=== PATIENT | female | born 1930 | race Caucasian/White ===

== ENCOUNTER → 2016-07-30 | Outpatient (CLI) | payer OTHER ==
[2016-07-30 13:10] LABS: BASO % 0.5 %; BASO ABS # 0.04 K/uL (0-0.2); COMPLETE YES; HEMATOCRIT 36.3 % (37-47); IG% 0.3 %; LYMPH % 19.6 %; LYMPH ABS # 1.56 K/uL (1.2-3.4); MEAN CELL VOLUME 87.1 fL (80-100); MEAN CORPUSCULAR HEMOGLOBIN 28.3 pg (25-34); MEAN CORPUSCULAR HGB CONC 32.5 g/dl (32-36); MEAN PLATELET VOLUME 9.2 fL (7.4-10.4); MONO % 10.3 %; NEUT % 67.3 %; PLATELET COUNT 315 K/uL (130-400); RED BLOOD COUNT 4.17 M/uL (4.2-5.4); WHITE BLOOD COUNT 7.95 K/uL (4.8-10.8)
[2016-07-30 13:27] LABS: ALKALINE PHOSPHATASE 94 U/L (45-117); ALT/SGPT 18 U/L (12-78); AST/SGOT 15 U/L (15-37); BLOOD UREA NITROGEN 18 mg/dl (7-18); BUN/CREATININE RATIO 26.3 (10-20); CALCIUM 9.2 mg/dl (8.5-10.1); CARBON DIOXIDE 31 mmol/L (21-32); CHLORIDE 104 mmol/L (98-107); CHOLESTEROL 190 mg/dl (0-200); CHOLESTEROL/HDL RATIO 2.2; CREATININE 0.68 mg/dl (0.60-1.20); GLUCOSE 83 mg/dl (70-99); HDL CHOLESTEROL 85 mg/dl; LDL CHOLESTEROL CALCULATED 95 mg/dl; POTASSIUM 4.3 mmol/L (3.5-5.1); SODIUM 139 mmol/L (136-145); TOTAL IRON BINDING CAPACITY 386 mcg/dl (250-450); TRIGLYCERIDES 49 mg/dl (0-150); VERY LOW DENSITY LIPOPROT CALC 10 mg/dl
[2016-07-30 13:36] LABS: ALB/GLOB RATIO 0.8 (0.9-2)
== END | disposition home or self-care (01) ==
LOC: C.LABMFLN 07:52
PROVIDERS: ATTEND Family Medicine
DX: M06.9 Rheumatoid arthritis, unspecified (principal); I10 Essential (primary) hypertension; R63.4 Abnormal weight loss; D64.9 Anemia, unspecified; E78.00 Pure hypercholesterolemia, unspecified; E03.9 Hypothyroidism, unspecified

== ENCOUNTER → 2017-09-04 | Outpatient (CLI) | payer OTHER ==
[2017-09-04 17:51] LABS: BASO % 0.4 %; BASO ABS # 0.03 K/uL (0-0.2); EOS % 1.7 %; EOS ABS # 0.12 K/uL (0-0.5); HEMATOCRIT 39.6 % (37-47); HEMOGLOBIN 12.4 g/dL (12.0-16.0); IG# 0.01 K/uL (0.00-0.02); LYMPH % 19.7 %; LYMPH ABS # 1.41 K/uL (1.2-3.4); MEAN CELL VOLUME 95.2 fL (80-100); MEAN CORPUSCULAR HEMOGLOBIN 29.8 pg (25-34); MEAN CORPUSCULAR HGB CONC 31.3 g/dl (32-36); MEAN PLATELET VOLUME 9.7 fL (7.4-10.4); MONO ABS # 0.64 K/uL (0.11-0.59); NEUT % 69.1 %; NEUT ABS # 4.94 K/uL (1.4-6.5); PLATELET COUNT 325 K/uL (130-400); RED CELL DISTRIBUTION WIDTH CV 14.5 % (11.5-14.5); RED CELL DISTRIBUTION WIDTH SD 49.8 fL (36.4-46.3); WHITE BLOOD COUNT 7.15 K/uL (4.8-10.8)
[2017-09-04 20:16] LABS: ALBUMIN 3.6 gm/dl (3.4-5.0); ALKALINE PHOSPHATASE 91 U/L (45-117); ALT/SGPT 29 U/L (12-78); AST/SGOT 29 U/L (15-37); BLOOD UREA NITROGEN 17 mg/dl (7-18); CALCIUM 8.7 mg/dl (8.5-10.1); CARBON DIOXIDE 28 mmol/L (21-32); CHOLESTEROL 161 mg/dl (0-200); CREATININE 0.71 mg/dl (0.60-1.20); GLUCOSE 85 mg/dl (70-99); LDL CHOLESTEROL CALCULATED 76 mg/dl; POTASSIUM 4.5 mmol/L (3.5-5.1); SODIUM 139 mmol/L (136-145); TOTAL PROTEIN 7.7 gm/dl (6.4-8.2)
== END | disposition home or self-care (01) ==
LOC: C.LABMFLN 10:59
PROVIDERS: ATTEND Family Medicine
DX: M06.9 Rheumatoid arthritis, unspecified (principal); I10 Essential (primary) hypertension; I48.91 Unspecified atrial fibrillation; E78.00 Pure hypercholesterolemia, unspecified; E03.9 Hypothyroidism, unspecified; M81.0 Age-related osteoporosis without current pathological fracture

== ENCOUNTER 2020-04-18 13:25 | Observation (INO) ==
[2020-04-18 15:10] LABS: Basophils # (auto) 0.01 K/uL (0-0.2); Basophils % (auto) 0.2 %; Eosinophils # (auto) 0.14 K/uL (0-0.5); Eosinophils % (auto) 2.3 %; Hematocrit (blood only) 40.3 % (37-47); Hemoglobin 13.2 g/dL (12.0-16.0); Immature Granulocytes # (auto) 0.02 K/uL (0.00-0.02); Immature Granulocytes % (auto) 0.3 %; Lymphocytes # (auto) 1.21 K/uL (1.2-3.4); Lymphocytes % (auto) 19.5 %; Mean Corpuscular Hgb Conc 32.8 g/dL (32-36); Mean Corpuscular Volume 94.6 fL (80-100); Mean Platelet Volume 9.7 fL (7.4-10.4); Monocytes # (auto) 0.72 K/uL (0.11-0.59); Monocytes % (auto) 11.6 %; Neutrophils # (auto) 4.09 K/uL (1.4-6.5); Neutrophils % (auto) 66.1 %; Platelet Count 235 K/uL (130-400); RDW Coefficient of Variation 14.1 % (11.5-14.5); RDW Standard Deviation 47.8 fL (36.4-46.3); Red Blood Count 4.26 M/uL (4.2-5.4); White Blood Count 6.19 K/uL (4.8-10.8)
--- NOTE | 2020-04-18 15:15 | XRay Report ---
XR chest 1V portable CLINICAL HISTORY: Atypical chest pain COMPARISON STUDY: No previous studies for comparison. FINDINGS: The heart is enlarged. There is no failure. There is no focal pulmonary consolidation. Ther e are no pleural effusions. A subcentimeter density at the right midlung zone laterally likely repres enting a vascular summation[ IMPRESSION: Cardiomegaly. No acute findings. ACT 112: Negative or not required by law. Electronically signed by: Saleem Liz M.D. 04/18/2020 3:14 PM
[2020-04-18 15:30] LABS: Alanine Aminotransferase 22 U/L (12-78); Albumin Level 3.7 gm/dl (3.4-5.0); Aspartate Aminotransferase 25 U/L (15-37); BUN Creatinine Ratio 23.9 (10-20); Blood Urea Nitrogen 38 mg/dl (7-18); Calcium 9.7 mg/dl (8.5-10.1); Carbon Dioxide 35 mmol/L (21-32); Chloride 100 mmol/L (98-107); Est GFR (African American) 33.5; Est GFR (Non-African American) 28.9; Glucose 94 mg/dl (70-99); Lipase 136 U/L (73-393); Potassium 3.9 mmol/L (3.5-5.1); Sodium 138 mmol/L (136-145)
[2020-04-18 15:31] LABS: Partial Thromboplastin Ratio 0.8; Partial Thromboplastin Time 21.1 Seconds (21.0-31.0); Prothrombin Time 10.9 Seconds (9.0-12.0)
[2020-04-18 15:34] LABS: Alkaline Phosphatase 72 U/L (45-117); Bilirubin,Total 0.3 mg/dl (0.2-1); Creatine Kinase 57 U/L (26-192); Creatine Kinase MB < 1.0 ng/ml (0.5-3.6); Globulin 3.6 gm/dl (2.5-4.0); Total Protein 7.3 gm/dl (6.4-8.2); Troponin I < 0.015 ng/ml (0-0.045)
[2020-04-18] MEDS ORDERED: SODIUM CHLORIDE 0.9% 1000ML 500 ML IV ONE (15:38)
--- NOTE | 2020-04-18 15:42 | Emergency Department Note ---
History of Present Illness General Chief complaint: Shortness of Breath/Dyspnea Stated complaint: REF BY DR POSSIBLE STROKE Time Seen by Provider: 04/18/20 14:04 Source: patient, family (daughter ), RN notes reviewed and old records reviewed Mode of arrival: ambulatory Limitations: altered mental status History of Present Illness Provider complaint: Dizziness, chest pain Onset (ago): week(s) 2 Location: chest Radiation: back Severity: mild Pain Consistency: + intermittent and + now resolved Maximum Pain Intensity: 0 Current Pain Intensity: 0 Quality: + aching Relieved By: + immobilization Exacerbated By: + movement Associated symptoms: + malaise, + weakness and + other (dizziness); no cough, no fever/chills, no headaches, no nausea/vomiting and no shortness of breath Treatments prior to arrival: none This is an 89-year-old female sent in by her primary care physician over concerns of the patient has been having chest pain for the last 2 weeks with exertion. The patient reports the pain as an ache made better with rest however exertion makes it worse. Patient's daughter is concerned that the patient seems more confused confused than normal. Patient does have a history of atrial fibrillation however is not anticoagulated for this. The patient's primary care physician sent her in over concerns of the patient may have had a CVA due to the dizziness and ataxia she has had over the past 2 weeks. In addition the patient's renal function has also worsened. Home Medications Medication Instructions Recorded Confirmed Type albuterol sulfate 90 mcg/actuation 2 puffs INHALATION Q4H PRN #3 ea 11/05/18 04/18/20 Rx breath activated powder inhaler ipratropium 0.5 mg-albuterol 3 mg 3 ml INHALATION Q4H PRN #180 ml 11/05/18 04/18/20 Rx (2.5 mg base)/3 mL nebulization soln multivitamin with minerals-folic 1 tab PO DAILY #90 tab 11/05/18 04/18/20 Rx acid 66.7 mcg-biotin 1,000 mcg tablet acetaminophen 500 mg tablet 500 mg PO Q6H PRN tab 01/16/19 04/18/20 History leucovorin calcium 5 mg tablet 0 mg PO WEEKLY tab 01/16/19 04/18/20 History calcium carbonate-vitamin D3 600 1 tab PO DAILY #90 tab 01/19/19 04/18/20 Rx mg(1,500 mg)-400 unit chewable tablet furosemide 40 mg tablet 40 mg PO DAILY #90 tab 01/19/19 04/18/20 Rx omeprazole 40 mg capsule,delayed 40 mg PO DAILY #90 cap 01/19/19 04/18/20 Rx release amlodipine 10 mg tablet 10 mg PO DAILY #90 tab 07/05/19 04/18/20 Rx fluticasone fur. 100 mcg-umeclid 1 puffs INHALATION DAILY #60 ea 10/11/19 04/18/20 Rx 62.5 mcg-vilant 25 mcg inhalat.powder ketoconazole 2 % topical cream 1 applic TOPICAL BID #30 g 01/21/20 04/18/20 Rx levothyroxine 50 mcg tablet 50 mcg PO DAILY #90 tab 03/31/20 04/18/20 Rx methotrexate sodium 2.5 mg tablet 20 mg PO WEEKLY #90 tab 03/31/20 04/18/20 Rx metoprolol tartrate 50 mg tablet 50 mg PO BID #180 tab 03/31/20 04/18/20 Rx folic acid 5 mg PO DAILY 04/18/20 04/18/20 History Allergies Allergy/AdvReac Type Severity Reaction Status Date / Time alendronate sodium Allergy Unknown ON [facility] MED Verified 04/18/20 15:30 LIST Past Med/Surg History Medical History (Updated 04/18/20 @ 20:42 by Ronald Rosas MD) Abnormal positron emission tomography (PET) scan Abnormal weight loss Acute pain of left hip Anemia Anxiety Atrial fibrillation Blood in stool COPD, moderate Dysphagia Effusion of right knee Gait apraxia Gastric erosion with bleeding Gastritis Generalized osteoarthrosis, unspecified site High risk medication use Hyperactivity of bladder Hypercholesterolemia Hypertension Hypothyroidism Immunization, pneumococcus and influenza Inguinal lymphadenopathy Iron deficiency anemia Lymphadenopathy Macular degeneration Mammogram abnormal New onset a-fib Non-Hodgkin's lymphoma Obstructive sleep apnea Osteoporosis Pleural effusion Pulmonary nodule Rheumatoid arthritis Right-sided heart failure Sessile colonic polyp Urinary incontinence Visit for screening mammogram Surgical History History of cataract surgery History of colonoscopy History of dilation and curettage History of knee replacement History of Mohs micrographic surgery for skin cancer History of tonsillectomy Family History Daughter Multiple sclerosis Other No pertinent family history Social History Smoking Status: Former smoker Hx Alcohol Use: No Hx Substance Use: No Preferred Language: Vietnamese Tierce Filler Required: No Beliefs That Will Affect Care: None Current Living Situation: Spouse Other Information That Helps Us Care for You: No Feels Safe at Home: Yes Safety Concerns: Feels Safe At This Time Seatbelt Use: always Assistive Devices: Cane Physical Exam Vital Signs Vital Signs - 24 hr 04/18/20 13:38 04/18/20 15:22 04/18/20 15:25 Temperature 36.3 C L Temperature Source Oral Pulse Rate 86 66 Respiratory Rate 16 32 H Respiratory Effort / Characteristics Non-Labored Respiratory Depth Normal Respiratory Pattern Regular Blood Pressure 121/79 118/71 Blood Pressure Mean 93 75 Blood Pressure Position Sitting Pulse Oximetry 95 97 Oxygen Delivery Method Room Air Room Air Sepsis Recent Fever Within 48 Hours No Sepsis New/Unexplained Change in Mental Status Yes Sepsis Action Taken by Nursing No Action Required 04/18/20 15:38 04/18/20 16:17 04/18/20 16:18 Temperature Temperature Source Pulse Rate 72 72 77 Respiratory Rate 27 H 30 H 20 Respiratory Effort / Characteristics Respiratory Depth Respiratory Pattern Blood Pressure 126/71 Blood Pressure Mean 95 Blood Pressure Position Pulse Oximetry Oxygen Delivery Method Sepsis Recent Fever Within 48 Hours Sepsis New/Unexplained Change in Mental Status Sepsis Action Taken by Nursing 04/18/20 16:23 04/18/20 16:30 04/18/20 16:31 Temperature Temperature Source Pulse Rate 63 65 Respiratory Rate 26 H 30 H Respiratory Effort / Characteristics Respiratory Depth Respiratory Pattern Blood Pressure 124/76 Blood Pressure Mean 91 Blood Pressure Position Pulse Oximetry 97 Oxygen Delivery Method Room Air Sepsis Recent Fever Within 48 Hours Sepsis New/Unexplained Change in Mental Status Sepsis Action Taken by Nursing Course Administered Medications Heparin Sodium (Porcine) (Heparin Sod 5,000 Unit/0.5 Ml Vial) 5,000 units SQ Q12 [facility] Stop: 05/18/20 20:59 Last Admin: 04/18/20 20:05 Dose: 5,000 units Documented by: [id number] Sodium Chloride (Nss 1000ml) 1,000 mls @ 85 mls/hr IV .[id number] [facility] Stop: 04/19/20 05:35 Last Admin: 04/18/20 18:24 Dose: 85 mls/hr Documented by: [id number] Metoprolol Tartrate (Metoprolol Tartrate 50 Mg Tab) 50 mg PO BID [facility] Stop: 05/18/20 20:59 Last Admin: 04/18/20 20:05 Dose: 50 mg Documented by: [id number] Discontinued Medications Sodium Chloride (Nss 1000ml) 500 mls @ 999 mls/hr IV .Q31M ONE Stop: 04/18/20 16:08 Last Infusion: 04/18/20 17:12 Dose: 0 mls/hr Documented by: [id number] Admin: 04/18/20 16:22 Dose: 999 mls/hr Documented by: [id number] Ceftriaxone Sodium (Rocephin) 2,000 mg in 70 mls @ 140 mls/hr IV NOW STA Stop: 04/18/20 16:39 Last Infusion: 04/18/20 17:12 Dose: 0 mls/hr Documented by: [id number] Admin: 04/18/20 16:32 Dose: 140 mls/hr Documented by: [id number] Medical Decision Making Differential Diagnosis Infection, dehydration, metabolic abnormality, hypo/hyperglycemia, electrolyte disturbance, anemia, hypoxia, cardiac sources, intracerebral event, toxicologic, neurologic, as well as other pathologies. Medical Records Attestation: I reviewed the patient's medical records. Home Medications Current Medication List: was personally reviewed by me Laboratory Data Attestation: I reviewed the patient's lab results. Result diagrams: 04/18/20 15:01 04/18/20 15:01 Lab Results 04/18/20 04/18/20 04/18/20 Range/Units 15:01 15:01 15:01 WBC 6.19 (4.8-10.8) K/uL RBC 4.26 (4.2-5.4) M/uL Hgb 13.2 (12.0-16.0) g/dL Hct 40.3 (37-47) % MCV 94.6 (80-100) fL MCH 31.0 (25-34) pg MCHC 32.8 (32-36) g/dL RDW Std Deviation 47.8 H (36.4-46.3) fL RDW Coeff of [place] 14.1 (11.5-14.5) % Plt Count 235 (130-400) K/uL MPV 9.7 (7.4-10.4) fL Immature Gran % (Auto) 0.3 % Neut % (Auto) 66.1 % Lymph % (Auto) 19.5 % [place] % (Auto) 11.6 % Eos % (Auto) 2.3 % Baso % (Auto) 0.2 % Neut # (Auto) 4.09 (1.4-6.5) K/uL Lymph # (Auto) 1.21 (1.2-3.4) K/uL [place] # (Auto) 0.72 H (0.11-0.59) K/uL Eos # (Auto) 0.14 (0-0.5) K/uL Baso # (Auto) 0.01 (0-0.2) K/uL Immature Gran # (Auto) 0.02 (0.00-0.02) K/uL PT 10.9 (9.0-12.0) Seconds INR 1.0 (0.9-1.1) APTT 21.1 (21.0-31.0) Seconds PTT Ratio 0.8 Sodium 138 (136-145) mmol/L Potassium 3.9 (3.5-5.1) mmol/L Chloride 100 (98-107) mmol/L Carbon Dioxide 35 H (21-32) mmol/L Anion Gap 3.0 (3-11) BUN 38 H (7-18) mg/dl Creatinine 1.58 H (0.6-1.2) mg/dl Est Cr Clr Drug Dosing Not Reportable Est GFR ( Amer) 33.5 Est GFR (Non-Af Amer) 28.9 BUN/Creatinine Ratio 23.9 H (10-20) Glucose 94 (70-99) mg/dl Calcium 9.7 (8.5-10.1) mg/dl Total Bilirubin 0.3 (0.2-1) mg/dl AST 25 (15-37) U/L ALT 22 (12-78) U/L Alkaline Phosphatase 72 (45-117) U/L Total Creatine Kinase 57 (26-192) U/L CK-MB (CK-2) < 1.0 (0.5-3.6) ng/ml CK/CKMB % Calc TNP Troponin I < 0.015 (0-0.045) ng/ml Total Protein 7.3 (6.4-8.2) gm/dl Albumin 3.7 (3.4-5.0) gm/dl Globulin 3.6 (2.5-4.0) gm/dl Albumin/Globulin Ratio 1.0 (0.9-2) Lipase 136 (73-393) U/L Specimen Hemolysis Urine Color Urine Appearance (Clear) Urine pH (4.5-7.5) Ur Specific [place] (1.000-1.030) Urine Protein (Negative) Urine Glucose (UA) (Negative) Urine Ketones (Negative) Urine Blood (Negative) Urine Nitrite (Negative) Urine Bilirubin (Negative) Urine Urobilinogen (Negative) Ur Leukocyte Esterase (Negative) Urine WBC (Auto) (0-5) /hpf Urine RBC (Auto) (0-4) /hpf U Hyaline Cast (Auto) (0-5) /lpf U Epithel Cells (Auto) (0-5) /lpf Urine Bacteria (Auto) (Negative) SARS-CoV-2 Ag (Rapid) (Negative) 04/18/20 04/18/20 Range/Units 15:24 16:15 WBC (4.8-10.8) K/uL RBC (4.2-5.4) M/uL Hgb (12.0-16.0) g/dL Hct (37-47) % MCV (80-100) fL MCH (25-34) pg MCHC (32-36) g/dL RDW Std Deviation (36.4-46.3) fL RDW Coeff of Kandy (11.5-14.5) % Plt Count (130-400) K/uL MPV (7.4-10.4) fL Immature Gran % (Auto) % Neut % (Auto) % Lymph % (Auto) % [place] % (Auto) % Eos % (Auto) % Baso % (Auto) % Neut # (Auto) (1.4-6.5) K/uL Lymph # (Auto) (1.2-3.4) K/uL [place] # (Auto) (0.11-0.59) K/uL Eos # (Auto) (0-0.5) K/uL Baso # (Auto) (0-0.2) K/uL Immature Gran # (Auto) (0.00-0.02) K/uL PT (9.0-12.0) Seconds INR (0.9-1.1) APTT (21.0-31.0) Seconds PTT Ratio Sodium (136-145) mmol/L Potassium (3.5-5.1) mmol/L Chloride (98-107) mmol/L Carbon Dioxide (21-32) mmol/L Anion Gap (3-11) BUN (7-18) mg/dl Creatinine (0.6-1.2) mg/dl Est Cr Clr Drug Dosing Est GFR ( Amer) Est GFR (Non-Af Amer) BUN/Creatinine Ratio (10-20) Glucose (70-99) mg/dl Calcium (8.5-10.1) mg/dl Total Bilirubin (0.2-1) mg/dl AST (15-37) U/L ALT (12-78) U/L Alkaline Phosphatase (45-117) U/L Total Creatine Kinase (26-192) U/L CK-MB (CK-2) (0.5-3.6) ng/ml CK/CKMB % Calc Troponin I (0-0.045) ng/ml Total Protein (6.4-8.2) gm/dl Albumin (3.4-5.0) gm/dl Globulin (2.5-4.0) gm/dl Albumin/Globulin Ratio (0.9-2) Lipase (73-393) U/L Specimen Hemolysis Urine Color Yellow Urine Appearance Clear (Clear) Urine pH 8.0 H (4.5-7.5) Ur Specific [place] 1.014 (1.000-1.030) Urine Protein Negative (Negative) Urine Glucose (UA) Negative (Negative) Urine Ketones Negative (Negative) Urine Blood Negative (Negative) Urine Nitrite Negative (Negative) Urine Bilirubin Negative (Negative) Urine Urobilinogen Negative (Negative) Ur Leukocyte Esterase 2+ H (Negative) Urine WBC (Auto) 10-30 H (0-5) /hpf Urine RBC (Auto) 0-4 (0-4) /hpf U Hyaline Cast (Auto) 0 (0-5) /lpf U Epithel Cells (Auto) >30 H (0-5) /lpf Urine Bacteria (Auto) Negative (Negative) SARS-CoV-2 Ag (Rapid) Negative (Negative) Imaging Data Radiologist's Impression: [facility] [place], [phone] CT Scan Report Patient: Holli GOLDMAN Date: 04/18/20MR#: [id number]: [address]Acct ID:[id number]: [address]Birth Date: [address] Zip: [place] [id number]: 89Location: EDSex: FRoom/Bed:Att Phy:Diagnosis: REF BY , POSSIBLE STROKE, CHEST PAINPri Phy: Ish Mccartney MDService Date: 04/18/20Fam Phy:Interpreting Phy: Soren OlsenAdmit Phy: Ordering Phy: Ronald Rosas MD cc: ~ CT head/brain wo con CLINICAL HISTORY: 89 years-old Female with Pt c/o CVA. Acute strokelike symptoms with confusion, weakness and dizziness TECHNIQUE: Multiple axial CT images of the head were obtained without contrast. A dose lowering technique was utilized adhering to the principles of ALARA. CT DOSE: 638.56 mGycm COMPARISON: None. FINDINGS: No acute intracranial hemorrhage, midline shift, intracranial mass, hydrocephalus, territorial ischemia or abnormal extra-axial collection. Cerebral vascular calcifications. Age-related involutional changes. Patchy white matter hypodensities suggest chronic microvascular ischemic disease. The calvarium is intact. Prior bilateral lens replacement. The paranasal sinuses, mastoid air cells, and middle ear cavities are clear. IMPRESSION: No acute intracranial abnormality. ACT 112: Negative or not required by law. The above report was generated using voice recognition software. It may contain grammatical, syntax or spelling errors. Electronically signed by: Oumar Olsen M.D. 04/18/2020 3:55 PM Dictated: 04/18/20 1552Transcribed: 04/18/20 1552 [facility] [place], [phone] XRay Report Patient: Holli GOLDMAN Date: 04/18/20MR#: [id number]: [address] ID:[id number]: [address]Birth Date: [address] Zip: [place] [phone]: 89Location: EDSex: FRoom/Bed:Att Phy:Diagnosis: REF BY , POSSIBLE STROKE, CHEST PAINPri Phy: Ish Mccartney MDService Date: 04/18/20Fa Phy:Interpreting Phy: Saleem Liz MDAdmit Phy: Ordering Phy: Ronald Rosas MD cc: ~ XR chest 1V portable CLINICAL HISTORY: Atypical chest pain COMPARISON STUDY: No previous studies for comparison. FINDINGS: The heart is enlarged. There is no failure. There is no focal pulmonary consolidation. There are no pleural effusions. A subcentimeter density at the right midlung zone laterally likely representing a vascular summation[ IMPRESSION: Cardiomegaly. No acute findings. ACT 112: Negative or not required by law. Electronically signed by: Saleem Liz M.D. 04/18/2020 3:14 PM Dictated: 04/18/201512Transcribed: 04/18/201512 ECG Data Attestation: I personally reviewed and interpreted this ECG as follows: Indication: + weakness Rate (beats per minute): 66 Rhythm: + atrial fibrillation ECG Intervals/blocks: + Normal QT-c (434) ECG [place]: + Normal ECG ST segments: no ST depression and no ST elevation Comparison ECG Date: from (12/29/2002) Change: the following changes noted (afib has replaced NSR) MDM Narrative Patient was seen and evaluated as above in room B6. Review was performed of nursing notes and vital signs. I did review pertinent previous visits and patien t history. After obtaining a thorough history and physical examination the above work up was performed. This is an 89-year-old female who presents emergency department with a number of complaints. The patient has had exertional chest pain for at least the past week. In addition the family is concerned that the patient is dizzy. She is not on anticoagulation for her atrial fibrillation therefore the primary care physician sent the emergency department over concern of stroke. CT of the head as well as chest x-ray at this point are normal. Her wahl swab is negative she does not have an elevation in her white blood cell count however her renal profile is slightly bumped. She was given a normal saline bolus here in the emergency department and started on Rocephin While in the department, I personally reevaluated the patient several times and each time the patient was found to be resting comfortably. The patient was educated upon management, educated upon todays findings/results, educated upon importance of follow up from today's visit, educated upon symptoms in which to return, had questions answered prior to discharge, verbalized understanding, and was discharged home in good condition. An order was placed for continuous cardiac monitoring. The monitor shows a rate of [] with [] rhythm. I attest that I have personally reviewed the patient medication list. I attest that I have reviewed the patient's blood pressure and it was found to be [] GCS: 15 The patient was evaluated during a period of high volume and high acuity while the hospital was at overcapacity during the global COVID-19 pandemic, and that diagnosis was suspected/considered upon their initial presentation. Their evaluation, treatment and testing was consistent with current guidelines for patients who present with complaints or symptoms that may be related to COVID- 19. Impression & Plan Acute kidney injury, Weakness, Atrial fibrillation Discharge Plan Visit Data Chief Complaint: Shortness of Breath/Dyspnea Stated Complaint: REF BY , POSSIBLE STROKE ED Provider: Ronald Rosas Discharge Problem: Acute kidney injury, Weakness, Atrial fibrillation Patient Disposition: Admitted As Inpatient Discharge Instructions Interventions: ED Discharge Assessment Last Done: 04/18/20 17:13 Discharge Problem: Atrial fibrillation Qualifiers: Atrial fibrillation type: unspecified Qualified Code(s): I48.91 - Unspecified atrial fibrillation
--- NOTE | 2020-04-18 15:57 | CT Scan Report ---
CT head/brain wo con CLINICAL HISTORY: 89 years-old Female with Pt c/o CVA. Acute strokelike symptoms with confusion, wea kness and dizziness TECHNIQUE: Multiple axial CT images of the head were obtained without contrast. A dose lowering tech nique was utilized adhering to the principles of ALARA. CT DOSE: 638.56 mGycm COMPARISON: None. FINDINGS: No acute intracranial hemorrhage, midline shift, intracranial mass, hydrocephalus, territorial ischem ia or abnormal extra-axial collection. Cerebral vascular calcifications. Age-related involutional becky nges. Patchy white matter hypodensities suggest chronic microvascular ischemic disease. The calvarium is intact. Prior bilateral lens replacement. The paranasal sinuses, mastoid air cells, and middle ear cavities are clear. IMPRESSION: No acute intracranial abnormality. ACT 112: Negative or not required by law. The above report was generated using voice recognition software. It may contain grammatical, syntax o r spelling errors. Electronically signed by: Oumar Olsen M.D. 04/18/2020 3:55 PM
[2020-04-18] MEDS ORDERED: cefTRIAXone SODIUM 2,000 MG/70 ML BAG IV STA (16:10)
--- NOTE | 2020-04-18 16:32 | History & Physical Report ---
Date of Service April 18, 2020 Assessment & Plan (1) Weakness: The cause of weakness is undetermined at this time will perform stroke rule out without TPA. Will look for metabolic course as her electrolytes and serology look relatively stable, urine analysis is abnormal will wait for urine culture. She denies having any focal areas of numbness, tingling, or weakness. She feels weak all over. When she stands she falls back into her left. SHe did stumble in the emergency department attempting to ambulate. No scotoma or diplopia. No aphasia or dysphagia. (2) Chest pain: he did report having some chest tightness several times daily worse with exertion. She rates it as severe as a 2 or 3 out of 10 in severity. It lasts for about 5 minutes and then resolves. Initial troponins unremarkable, EKG was without current of injury/ischemia. will trend troponins and continue baby aspirin with a history of significant GI bleeding as listed below (3) Atrial fibrillation: Patient is atrial fibrillation is rate controlled reportedly has a history of the same. this patient is not on anticoagulation, and recurrent GI bleeding. She has not been on anticoagulation since July 2018 because of recurrent GI bleeding and iron deficiency anemia. Patient had been on Eliquis but this was stopped by patient after GI bleeding. She underwent colonoscopy for the GI bleed on October 10, 2016 which showed some colon adenomas. She had EGD last performed on August 05, 2018. There were a few small erosions in the gastric body. There was a single spot of slight oozing suggesting an AVM in the gastric body. Patient has declined further endoscopic studies. (4) Acute kidney injury: elevation in creatinine we will continue to follow after hydration, hold her Lasix and there is a pending echocardiogram to assess her LV function as part of her stroke work-up (5) COPD, moderate: Does not appear to be in exacerbation we will continue home inhaled medications of albuterol ipratropium and Breo (6) Hypertension: Typically takes metoprolol 50 twice daily (also helping with rate control) plus amlodipine 10 (7) Hypothyroidism: Remains on levothyroxine 50 mcg, last TSH checked October 2019 was normal (8) Rheumatoid arthritis: Typically takes leucovorin and methotrexate these will be held (9) DVT prophylaxis: In lieu of full anticoagulation given the patient's history of GI bleed will employ heparin therapy at this time History of Present Illness Primary Care Provider: Ish Mccartney, MD 89-year-old female sent in from her primary care doctor's office for concerns of chest pain patient may be having a stroke. In the emergency department she is profoundly weak and cannot walk across the room. She is to be appears to be in rate controlled atrial fibrillation reportedly in the past she resistant anticoagulation.. According to the ER she is a foul urine. She has a negative Covid test and a negative chest x-ray. CT scan of her head is unremarkable for acute bleeding or other acute injury. This point time this could be a possible stroke rule out not appropriate for thrombolytic therapy given her atrial fibrillation and age she is at risk, metabolic encephalopathy from urinary tract infection present admission, unstable angina with recurrent chest pain, current gastritis or GI bleeding given her significant history (stable hemoglobin at this time) will admit the patient to sort through these problems Allergies Allergy/AdvReac Type Severity Reaction Status Date / Time alendronate sodium Allergy Unknown ON [facility] MED Verified 04/18/20 15:30 LIST Home Medications Medication Instructions Recorded Confirmed Type albuterol sulfate 90 mcg/actuation 2 puffs INHALATION Q4H PRN #3 ea 11/05/18 04/18/20 Rx breath activated powder inhaler ipratropium 0.5 mg-albuterol 3 mg 3 ml INHALATION Q4H PRN #180 ml 11/05/18 04/18/20 Rx (2.5 mg base)/3 mL nebulization soln multivitamin with minerals-folic 1 tab PO DAILY #90 tab 11/05/18 04/18/20 Rx acid 66.7 mcg-biotin 1,000 mcg tablet acetaminophen 500 mg tablet 500 mg PO Q6H PRN tab 01/16/19 04/18/20 History leucovorin calcium 5 mg tablet 0 mg PO WEEKLY tab 01/16/19 04/18/20 History calcium carbonate-vitamin D3 600 1 tab PO DAILY #90 tab 01/19/19 04/18/20 Rx mg(1,500 mg)-400 unit chewable tablet furosemide 40 mg tablet 40 mg PO DAILY #90 tab 01/19/19 04/18/20 Rx omeprazole 40 mg capsule,delayed 40 mg PO DAILY #90 cap 01/19/19 04/18/20 Rx release amlodipine 10 mg tablet 10 mg PO DAILY #90 tab 07/05/19 04/18/20 Rx fluticasone fur. 100 mcg-umeclid 1 puffs INHALATION DAILY #60 ea 10/11/19 04/18/20 Rx 62.5 mcg-vilant 25 mcg inhalat.powder ketoconazole 2 % topical cream 1 applic TOPICAL BID #30 g 01/21/20 04/18/20 Rx levothyroxine 50 mcg tablet 50 mcg PO DAILY #90 tab 03/31/20 04/18/20 Rx methotrexate sodium 2.5 mg tablet 20 mg PO WEEKLY #90 tab 03/31/20 04/18/20 Rx metoprolol tartrate 50 mg tablet 50 mg PO BID #180 tab 03/31/20 04/18/20 Rx folic acid 5 mg PO DAILY 04/18/20 04/18/20 History Past Med/Surg History Medical History (Updated 04/18/20 @ 16:25 by Ildefonso Cornell MD) Abnormal positron emission tomography (PET) scan Abnormal weight loss Acute pain of left hip Anemia Anxiety Atrial fibrillation Blood in stool COPD, moderate Dysphagia Effusion of right knee Gait apraxia Gastric erosion with bleeding Gastritis Generalized osteoarthrosis, unspecified site High risk medication use Hyperactivity of bladder Hypercholesterolemia Hypertension Hypothyroidism Immunization, pneumococcus and influenza Inguinal lymphadenopathy Iron deficiency anemia Lymphadenopathy Macular degeneration Mammogram abnormal New onset a-fib Non-Hodgkin's lymphoma Obstructive sleep apnea Osteoporosis Pleural effusion Pulmonary nodule Rheumatoid arthritis Right-sided heart failure Sessile colonic polyp Urinary incontinence Visit for screening mammogram Surgical History History of cataract surgery History of colonoscopy History of dilation and curettage History of knee replacement History of Mohs micrographic surgery for skin cancer History of tonsillectomy Family History Daughter Multiple sclerosis Other No pertinent family history Social History Smoking Status: Former smoker Hx Alcohol Use: No Hx Substance Use: No Preferred Language: Palestinian Feels Safe at Home: Yes Seatbelt Use: always Review of Systems Review of Systems: Mild distress and fatigue no headache, blurry or double vision no speech or swallowing issues Patient describes her chest pain is substernal as a pressure-like sensation and is worse with exertion no shortness of breath over her typical baseline COPD, no cough or wheezes no abdominal pain, nausea or vomiting, diarrhea or constipation he denies melena but admits having macular degeneration making it difficult for her to see no dysuria, hematuria or frequency no focal joint pain or swelling no back pain, CVA tenderness or radicular pain no bruising, bleeding or rashes no focal signs of weakness or numbness or altered sensation or she cannot walk due to weakness in the emergency department no complaints of anxiety or depression.. Physical Exam Physical Exam: The patient appeared thin but quite vibrant for her age Vital signs as documented. Head exam is normocephalic atraumatic no scleral icterus Neck is without JVD, thyromegaly, or carotid bruits. Lungs are clear to auscultation, no focal loss of breath sounds Cardiac exam, irregular but rate controlled.. Mild left upper quadrant systolic murmur, no rubs or gallops. Abdominal exam reveals normal bowel sounds, soft non tender, no masses particularly no epigastric tenderness Extremities are nonedematous and both pedal pulses are present significant rheumatoid arthritic change to her fingers Neurologic exam is alert and oriented, no focal loss of strength or sensation over profoundly weak when trying to walk and falls to the ground with 2 person assist Skin is without bruises or rashes Psychologically is without concerns for anxiety or depression. Results & Data Results & Data ([facility]) Vital Signs (Past 12 Hours) Vital Signs Temp Pulse Resp BP Pulse Ox 04/18/20 15:25 97 04/18/20 13:38 97.3 F L 86 16 121/79 95 PG Care Time/CCT Total # of Minutes Spent Total Time Spent with Patient: Total time spent is greater than 50% in coordination of care (as documented) at patient's floor/unit and/or counseling patient: Coding Level of Care Code 64455 Initial Inpt Care Lvl 3 Diagnoses Weakness R53.1 Chest pain R07.9 Atrial fibrillation I48.91 Acute kidney injury N17.9 COPD, moderate J44.9 Hypertension I10 Hypothyroidism E03.9 Rheumatoid arthritis M06.9 DVT prophylaxis Z29.9
[2020-04-18 16:33] LABS: Appearance Urine Clear (Clear); Bacteria Urine Automated Negative (Negative); Bilirubin Urine Negative (Negative); Blood Urine Negative (Negative); Cast Urine Automated 0 /lpf (0-5); Color Urine Yellow; Epithelial Cell Urine Auto >30 /lpf (0-5); Glucose Urine UA Negative (Negative); Ketones Urine Negative (Negative); Leukocyte Esterase Urine 2+ (Negative); Nitrite Urine Negative (Negative); Protein Urine Negative (Negative); RBC Urine Automated 0-4 /hpf (0-4); Specific Gravity Urine 1.014 (1.000-1.030); Urobilinogen Urine Negative (Negative)
--- NOTE | 2020-04-18 16:49 | Electrocardiogram Report ---
Test Reason : Blood Pressure : / mmHG Vent. Rate : 066 BPM Atrial Rate : 094 BPM P-R Int : 000 ms QRS Dur : 072 ms QT Int : 414 ms P-R-T Axes : 000 006 048 degrees QTc Int : 434 ms Atrial fibrillation 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-2002) Abnormal ECG When compared with ECG of 29-DEC-2002 11:04, Atrial fibrillation has replaced Sinus rhythm Questionable change in initial forces of Septal leads Confirmed by Danilo Ren ([id number]) on 04/18/2020 4:48:41 PM Referred By: Ish Mccartney Confirmed By:Danilo Ren
[2020-04-18] MEDS ORDERED: PHARMACIST DISCHARGE MED REC CONSULT PRN (17:50)
[2020-04-18] MEDS ORDERED: ACETAMINOPHEN 500 MG TAB PO PRN (17:50)
[2020-04-18] MEDS ORDERED: NITROGLYCERIN SL 0.4 MG/TAB TAB SL PRN (17:50)
[2020-04-18] MEDS ORDERED: ALBUT/IPRATROP 3MG/0.5MG NEB 3 ML VIAL INH PRN (17:50)
[2020-04-18] MEDS ORDERED: ALUMINUM/MAGNESIUM SUSP 30 ML UDC PO PRN (17:50)
[2020-04-18] MEDS ORDERED: SODIUM CHLORIDE 0.9% 1000ML 1,000 ML IV SCH (17:50)
[2020-04-18] MEDS ORDERED: ONDANSETRON INJ 2 MG/ML 2 ML VIAL IV PRN (17:50)
[2020-04-18] MEDS ORDERED: ALBUTEROL HFA 8 GM INHALER INH PRN (18:03)
--- NOTE | 2020-04-18 19:18 | Magnetic Resonance Report ---
MRI OF THE BRAIN WITHOUT IV CONTRAST CLINICAL HISTORY: Strokelike symptoms. Slurred speech. Dizziness. COMPARISON STUDY: CT of the brain dated 04/18/2020. TECHNIQUE: MRI of the brain was performed utilizing various T1 and T2-weighted sequences in the axial , sagittal, and coronal planes. IV contrast was not administered for this examination. FINDINGS: Brain parenchyma: There is age-related involutional change noting moderate to advanced subcortical an d periventricular microangiopathic disease. There is no hemorrhage or mass effect. There is no restri cted diffusion to suggest acute ischemia. [place]-white matter differentiation is preserved. No extra-ax ial fluid collection is seen. The cerebellar tonsils are normal in configuration. Ventricles, sulci, and cisterns: Prominent secondary to involutional change. Pituitary and sella: Unremarkable. Intracranial vasculature: Normal flow voids are maintained at the skull base. Orbits: The bony orbits are grossly intact. Orbital contents are normal in appearance noting bilatera l ocular lens implants. Sinuses and mastoids: Clear. Calvarium: Unremarkable. Cervical cord: Partially visualized cervical spinal cord is normal in morphology and signal intensity . IMPRESSION: No acute intracranial abnormality. ACT 112: Negative or not required by law. Electronically signed by: Ish Pearce M.D. 04/18/2020 7:17 PM
[2020-04-18] MEDS: METOPROLOL TARTRATE 50 MG TAB PO SCH (20:05)
[2020-04-18] MEDS: HEPARIN SOD 5,000 UNIT/0.5 ML VIAL SQ SCH (20:05)
[2020-04-19 02:44] LABS: Basophils # (auto) 0.01 K/uL (0-0.2); Basophils % (auto) 0.2 %; Eosinophils # (auto) 0.22 K/uL (0-0.5); Eosinophils % (auto) 3.5 %; Hematocrit (blood only) 34.6 % (37-47); Hemoglobin 11.6 g/dL (12.0-16.0); Immature Granulocytes # (auto) 0.01 K/uL (0.00-0.02); Immature Granulocytes % (auto) 0.2 %; Lymphocytes # (auto) 1.84 K/uL (1.2-3.4); Lymphocytes % (auto) 29.2 %; Mean Corpuscular Hemoglobin 31.7 pg (25-34); Mean Corpuscular Hgb Conc 33.5 g/dL (32-36); Mean Corpuscular Volume 94.5 fL (80-100); Monocytes # (auto) 0.87 K/uL (0.11-0.59); Monocytes % (auto) 13.8 %; Neutrophils # (auto) 3.35 K/uL (1.4-6.5); Neutrophils % (auto) 53.1 %; Platelet Count 217 K/uL (130-400); RDW Coefficient of Variation 14.1 % (11.5-14.5); RDW Standard Deviation 48.2 fL (36.4-46.3); Red Blood Count 3.66 M/uL (4.2-5.4)
[2020-04-19 03:00] LABS: Blood Urea Nitrogen 34 mg/dl (7-18); Calcium 8.7 mg/dl (8.5-10.1); Carbon Dioxide 32 mmol/L (21-32); Chloride 104 mmol/L (98-107); Cholesterol 177 mg/dl (0-200); Est GFR (African American) 34.3; Est GFR (Non-African American) 29.6; Glucose 93 mg/dl (70-99); Potassium 3.7 mmol/L (3.5-5.1); Sodium 141 mmol/L (136-145)
[2020-04-19 03:05] LABS: Chol HDL Ratio 2; HDL Cholesterol 86 mg/dl; LDL Cholesterol Calculated 78 mg/dl; Triglycerides 63 mg/dl (0-150); Troponin I < 0.015 ng/ml (0-0.045); VLDL Cholesterol 13 mg/dl
[2020-04-19] MEDS ORDERED: LEVOTHYROXINE SODIUM 50 MCG TABLET PO SCH (06:30)
[2020-04-19 07:10] LABS: Estimated Average Glucose 140 mg/dl; Hemoglobin A1C 6.5 % (4.5-5.6)
[2020-04-19] MEDS: HEPARIN SOD 5,000 UNIT/0.5 ML VIAL SQ SCH (08:12)
[2020-04-19] MEDS: METOPROLOL TARTRATE 50 MG TAB PO SCH (08:12)
[2020-04-19] MEDS ORDERED: UMECLIDINIUM/VILANTEROL 62.5/25MCG 7 PUFFS/INHALER INH SCH (09:00)
[2020-04-19] MEDS ORDERED: amLODIPine BESYLATE 5 MG TAB PO SCH (09:00)
[2020-04-19] MEDS ORDERED: FOLIC ACID 1 MG TAB PO SCH (09:00)
[2020-04-19] MEDS ORDERED: FLUTICASONE FUROATE 100MCG 14 PUFFS/INHALER INH SCH (09:00)
[2020-04-19] MEDS ORDERED: PANTOprazole 40 MG TAB PO SCH (09:00)
[2020-04-19] MEDS ORDERED: CALCIUM 600MG + VIT D 400 IU TAB PO SCH (09:00)
[2020-04-19] MEDS ORDERED: ASPIRIN 81 MG ECTAB PO SCH (09:00)
--- NOTE | 2020-04-19 09:47 | Ultrasound Report ---
CAROTID ARTERY ULTRASOUND CLINICAL HISTORY: Transient ischemic attack. COMPARISON STUDY: None. TECHNIQUE: Real-time, grayscale, and color Doppler sonography of the carotid and vertebral arteries w as performed. Images were viewed in the transverse and longitudinal planes. FINDINGS: There is moderate atherosclerotic plaque. Velocity measurements are listed below. COMMON CAROTID PEAK SYSTOLIC VELOCITY (CM/S): RIGHT 42 LEFT 38 ICA PEAK SYSTOLIC VELOCITY (CM/S): RIGHT 38 LEFT 53 Systolic ratios between the internal to common carotid arteries are normal. Antegrade flow is seen in the vertebral arteries. The external carotid arteries are patent. Blood pressure in the right arm measured 121/66. Blood pressure in the left arm measured 124/76. IMPRESSION: No evidence for a hemodynamically significant stenosis. ACT 112: Negative or not required by law. Electronically signed by: Elijah Go M.D. 04/19/2020 9:45 AM
--- NOTE | 2020-04-19 10:10 | Neurology Consultation ---
Date of Consultation April 19, 2020 Assessment & Plan (1) Ataxic gait: (2) Weakness: (3) Chronic fatigue: (4) Memory deficits: (5) Atrial fibrillation: patient has a relatively new onset (2 weeks ago) of balance issues with ataxic gait, weakness in general, and fatigue. Her short-term memory deficits have been getting a little worse recently also. On exam, she has balance difficulties and tends to fall to the left, even when sitting. Although she feels weak her motor strength is reasonable and symmetrical in all major muscle groups when tested individually. MRI of the brain showed no acute stroke , including the cerebellum Recommendations: 1. check B12, folate, TSH, Lyme antibody titer, vitamin D 3, and ESR. 2. The patient needs physical and occupational therapy. 3. I would like to follow this patient as an outpatient because of her memory and balance. EMG and nerve conduction studies could be obtained as an outpatient as well. overall, I spent a total of 60 minutes with this case including review of records, review of MRI films, direct evaluation patient at bedside, and discussion of case with the patient at bedside and Dr. Cui including differential diagnosis and treatment options. History of Present Illness Reason for Consultation: patient is an 89-year-old, who I was asked to see at the request of Dr. Cornell, for neurologic evaluation regarding weakness and other neurologic issues of a subacute nature. Requesting Physician: Dr. Cornell Attending Physician: Saqib Cui, DO History of Present Illness the patient has a history of COPD, hypertension, hypothyroidism, dyslipidemia, and atrial fibrillation. She is chronically in AFib and is not on an anticoagulant. She has never had a stroke before. Patient woke up 1 morning about 2 weeks ago not be able to walk well. She went to bed the night at baseline. She felt the room was spinning a little bit at times and there was some wooziness but mostly was off balance as if she was unable to keep her balance and would tend to fall to the left easily. She has had significant fatigue over this time and felt that her legs have been weaker than usual. They are symmetrical. Her arms are somewhat weak and she has some numbness and tingling in her limbs. She has no new vision issues or incontinence. She has no new speech issues but she has had short-term memory problems for months. In the emergency room [facility] temperature was 36.3, pulse 86, respiratory rate 16, blood pressure 121/79, O2 saturation 95%. She had no focal neurologic deficits on exam. CBC and Chem profile were unremarkable except for an elevated BUN and creatin ine. Liver profile was unremarkable. Total cholesterol was [address] triglycerides were [address]. [address] scan of the head was unremarkable. Chest x-ray was unremarkable. MRI of the brain showed no acute stroke. Carotid ultrasound was unremarkable. Allergies Allergy/AdvReac Type Severity Reaction Status Date / Time alendronate sodium Allergy Unknown ON [facility] MED Verified 04/18/20 15:30 LIST Home Medications Medication Instructions Recorded Confirmed Type albuterol sulfate 90 mcg/actuation 2 puffs INHALATION Q4H PRN #3 ea 11/05/18 04/18/20 Rx breath activated powder inhaler ipratropium 0.5 mg-albuterol 3 mg 3 ml INHALATION Q4H PRN #180 ml 11/05/1803/29 Rx (2.5 mg base)/3 mL nebulization soln multivitamin with minerals-folic 1 tab PO DAILY #90 tab 11/05/18 04/18/20 Rx acid 66.7 mcg-biotin 1,000 mcg tablet acetaminophen 500 mg tablet 500 mg PO Q6H PRN tab 01/16/19 04/18/20 History leucovorin calcium 5 mg tablet 0 mg PO WEEKLY tab 01/16/19 04/18/20 History calcium carbonate-vitamin D3 600 1 tab PO DAILY #90 tab 01/19/19 04/18/20 Rx mg(1,500 mg)-400 unit chewable tablet furosemide 40 mg tablet 40 mg PO DAILY #90 tab 01/19/19 04/18/20 Rx omeprazole 40 mg capsule,delayed 40 mg PO DAILY #90 cap 01/19/19 04/18/20 Rx release amlodipine 10 mg tablet 10 mg PO DAILY #90 tab 07/05/19 04/18/20 Rx fluticasone fur. 100 mcg-umeclid 1 puffs INHALATION DAILY #60 ea 10/11/19 04/18/20 Rx 62.5 mcg-vilant 25 mcg inhalat.powder ketoconazole 2 % topical cream 1 applic TOPICAL BID #30 g 01/21/20 04/18/20 Rx levothyroxine 50 mcg tablet 50 mcg PO DAILY #90 tab 03/31/20 04/18/20 Rx methotrexate sodium 2.5 mg tablet 20 mg PO WEEKLY #90 tab 03/31/20 04/18/20 Rx metoprolol tartrate 50 mg tablet 50 mg PO BID #180 tab 03/31/20 04/18/20 Rx folic acid 5 mg PO DAILY 04/18/20 04/18/20 History Patient History Medical History Abnormal positron emission tomography (PET) scan Abnormal weight loss Acute pain of left hip Anemia Anxiety Atrial fibrillation Blood in stool COPD, moderate Dysphagia Effusion of right knee Gait apraxia Gastric erosion with bleeding Gastritis Generalized osteoarthrosis, unspecified site High risk medication use Hyperactivity of bladder Hypercholesterolemia Hypertension Hypothyroidism Immunization, pneumococcus and influenza Inguinal lymphadenopathy Iron deficiency anemia Lymphadenopathy Macular degeneration Mammogram abnormal New onset a-fib Non-Hodgkin's lymphoma Obstructive sleep apnea Osteoporosis Pleural effusion Pulmonary nodule Rheumatoid arthritis Right-sided heart failure Sessile colonic polyp Urinary incontinence Visit for screening mammogram Surgical History History of cataract surgery History of colonoscopy History of dilation and curettage History of knee replacement History of Mohs micrographic surgery for skin cancer History of tonsillectomy Family History Daughter Multiple sclerosis Mother , age 50 of metastatic cancer Cancer Father , age 64 from a gasoline fire accident No problems noted. 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67 Other Information That Helps Us Care for You: No Feels Safe at Home: Yes Safety Concerns: Feels Safe At This Time Seatbelt Use: always Assistive Devices: Walker Review of Systems Constitutional: + fatigue and + weakness; no fever Eyes: no diplopia, no eye pain and no worsening vision Ear, Nose, Mouth, Throat: + dizziness; no ear pain, no tinnitus, no hearing loss, no hoarseness and no dysphagia Respiratory: no cough and no dyspnea Cardiovascular: no chest pain, no palpitations and no lightheadedness Gastrointestinal: no abdominal pain, no nausea and no vomiting Genitourinary: no dysuria, no urinary frequency and no urinary incontinence Musculoskeletal: + neck pain; no back pain, no radicular pain, no joint pain and no myalgia Integumentary: no rash and no lesions Neurologic: + gait abnormality, + unsteadiness, + generalized weakness, + numbness and + memory loss; no localized weakness, no tingling, no tremor(s), no abnormal movements, no headache(s), no abnormal speech and no confusion Psychiatric: no depression, no irritability, no anxiety, no difficulty concentrating, no confusion and no hallucinations Endocrine: no fatigue and no flushing Hematologic / Lymphatic: no easy bleeding and no easy bruising Allergy / Immunological: no urticaria and no problem reported Exam (Neuro) Physical Exam: The patient is right-handed. The patient is awake, alert, and attentive. Speech is normal without any aphasia or dysarthria. She can name objects, repeat phrases, and has normal spontaneous speech. Mentation and thought processes are intact, with orientation to person, place and time, and normal fund of knowledge. Attention and concentration are normal. Mood and affect are normal and appropriate. General appearance and grooming are normal. short-term memory is decreased. The discs are sharp with positive venous pulsations bilaterally. There are no exudates, hemorrhages, or blood vessel changes seen. Pupils are 3 mm bilaterally and reactive to light. Extraocular eye muscles are intact without nystagmus. Visual acuity and visual aguayo seem normal grossly to confrontation. There are no deficits to sensation in the face in all 3 distributions of the fifth cranial nerve bilaterally. Corneal reflexes are positive bilaterally. Facial strength and symmetry was normal bilaterally. Hearing seems normal to whisper and finger rub bilaterally. Palate moves well without asymmetry. There is normal sternocleidomastoid and trapezius (shoulder shrug) strength bilaterally. Tongue is midline with good strength bilaterally. Neck has a full range of motion without discomfort. There are no cervical bruits bilaterally. There are no cranial or ocular bruits. Heart is without murmur. There is a regular rhythm and rate. Cervical, thoracic, and lumbar spine are nontender to palpation. Gait is Slightly wide-based and unsteady. With feet together she cannot keep her balance and falls backwards. With feet apart she is fairly stable and then loses her balance with eyes closed. She needs the assistance of 1 to walk. With outstretched arms there is no drift. There are no resting, postural, or action tremors. There is no ataxia with finger to nose testing. There is no ataxia with [id number] testing either. There is good facility in the hands. No other abnormal involuntary movements are noted. Motor strength is 5/5 diffusely in the arms bilaterally including deltoids, biceps, triceps, brachioradialis, wrist flexors and extensors, polishing machine tender, and intrinsic hand muscles. Motor strength is 5/5 diffusely in the legs bilaterally including hip flexors, quadriceps, hamstrings, gastrocnemius, tibialis anterior, tibialis posterior, and Peroneii muscles. Toe extensors are normal and there is good bulk in the extensor digitorum brevis muscles bilaterally. The limbs have good tone without rigidity or spasticity. There is no atrophy noted in the muscles But she is thin throughout. Muscle bulk is normal, there is no tenderness to palpation, no myotonia to percussion, and no fasciculations seen. Sensory examination is intact to touch and pin throughout all 4 limbs diffusely. Reflexes are 1/4 in the biceps, triceps, brachioradialis, quadriceps, and Achilles tendons bilaterally. There is no clonus bilaterally. Toes are downgoing with plantar stimulation bilaterally. Peripheral pulses are present and of normal quality distally in all 4 limbs. There is no peripheral edema noted in the limbs. Results & Data ([facility]) Vital Signs (Past 12 Hours) Vital Signs Temp Pulse Pulse Resp BP Pulse Ox 04/19/20 07:27 36.6 C 71 18 118/59 L 97 04/19/20 03:02 36.4 C L 55 L 17 94/60 L 99 04/19/20 00:00 67 04/18/20 22:55 36.6 C 70 17 101/64 95 PG Care Time/CCT Total # of Minutes Spent Total Time Spent with Patient: Total time spent is greater than 50% in coordination of care (as documented) at patient's floor/unit and/or counseling patient: Coding Level of Care Code 39230 Initial Inpt Care Lvl 3 Diagnoses Ataxic gait R26.0 Weakness R53.1 Chronic fatigue R53.82 Memory deficits R41.3 Atrial fibrillation I48.91 Atrial fibrillation type: unspecified (1) Atrial fibrillation Atrial fibrillation type: unspecified Qualified Code(s): I48.91 - Unspecified atrial fibrillation
[2020-04-19 12:24] LABS: Lyme Ab IgM w/WB Rflx Negative (Negative)
[2020-04-19 12:25] LABS: Lyme Ab IgG w/WB Rflx Negative (Negative)
--- NOTE | 2020-04-19 13:22 | XCELERA ---
[id number]
[2020-04-19 14:07] LABS: Folate (Folic Acid) > 20.00 ng/ml (>5.38)
[2020-04-19 14:50] LABS: Vitamin B12 684 pg/ml (193-986)
[2020-04-19] MEDS ORDERED: STROKE PATIENT DISCHARGE STA ×2 (16:01→16:12)
--- NOTE | 2020-04-19 18:59 | Billing Data ---
Date of Service April 19, 2020 Coding Level of Care Code 63579 OBS Care - Discharge
--- NOTE | 2020-04-20 07:16 | Discharge Summary ---
Date of Service April 19, 2020 Admission HPI Per Admitting Provider 89-year-old female sent in from her primary care doctor's office for concerns of chest pain patient may be having a stroke. In the emergency department she is profoundly weak and cannot walk across the room. She is to be appears to be in rate controlled atrial fibrillation reportedly in the past she resistant anticoagulation.. According to the ER she is a foul urine. She has a negative Covid test and a negative chest x-ray. CT scan of her head is unremarkable for acute bleeding or other acute injury. This point time this could be a possible stroke rule out not appropriate for thrombolytic therapy given her atrial fibrillation and age she is at risk, metabolic encephalopathy from urinary tract infection present admission, unstable angina with recurrent chest pain, current gastritis or GI bleeding gi manuel her significant history (stable hemoglobin at this time) will admit the patient to sort through these problems Admission Exam Per Admitting Provider The patient appeared thin but quite vibrant for her age Vital signs as documented. Head exam is normocephalic atraumatic no scleral icterus Neck is without JVD, thyromegaly, or carotid bruits. Lungs are clear to auscultation, no focal loss of breath sounds Cardiac exam, irregular but rate controlled.. Mild left upper quadrant systolic murmur, no rubs or gallops. Abdominal exam reveals normal bowel sounds, soft non tender, no masses particularly no epigastric tenderness Extremities are nonedematous and both pedal pulses are present significant rheumatoid arthritic change to her fingers Neurologic exam is alert and oriented, no focal loss of strength or sensation over profoundly weak when trying to walk and falls to the ground with 2 person assist Skin is without bruises or rashes Psychologically is without concerns for anxiety or depression. Principal Diagnosis weakness due to suspected deconditioning Discharge Exam Performed by attending physician. Please see their addendum for discharge examination. Discharge Data Allergies Allergy/AdvReac Type Severity Reaction Status Date / Time alendronate sodium Allergy Unknown ON [facility] MED Verified 04/18/20 15:30 LIST Consultations 04/18/20 16:12 ED Decision to Admit Stat 04/18/20 17:50 Consult Case Management - Discharge Planning Routine Consult Neurology Routine 04/19/20 16:00 Consult [facility] circus hand Routine Ordered Studies 04/18/20 14:39 CT head/brain wo con Stat CLINICAL HISTORY: 89 years-old Female with Pt c/o CVA. Acute strokelike symptoms with confusion, weakness and dizziness TECHNIQUE: Multiple axial CT images of the head were obtained without contrast. A dose lowering technique was utilized adhering to the principles of ALARA. CT DOSE: 638.56 mGycm COMPARISON: None. FINDINGS: No acute intracranial hemorrhage, midline shift, intracranial mass, hydrocephalus, territorial ischemia or abnormal extra-axial collection. Cerebral vascular calcifications. Age-related involutional changes. Patchy white matter hypodensities suggest chronic microvascular ischemic disease. The calvarium is intact. Prior bilateral lens replacement. The paranasal sinuses, mastoid air cells, and middle ear cavities are clear. IMPRESSION: No acute intracranial abnormality. 04/18/20 17:50 MR brain wo con Routine CLINICAL HISTORY: Strokelike symptoms. Slurred speech. Dizziness. COMPARISON STUDY: CT of the brain dated 04/18/2020. TECHNIQUE: MRI of the brain was performed utilizing various T1 and T2-weighted sequences in the axial, sagittal, and coronal planes. IV contrast was not administered for this examination. FINDINGS: Brain parenchyma: There is age-related involutional change noting moderate to advanced subcortical and periventricular microangiopathic disease. There is no hemorrhage or mass effect. There is no restricted diffusion to suggest acute ischemia. [place]-white matter differentiation is preserved. No extra-axial fluid collection is seen. The cerebellar tonsils are normal in configuration. Ventricles, sulci, and cisterns: Prominent secondary to involutional change. Pituitary and sella: Unremarkable. Intracranial vasculature: Normal flow voids are maintained at the skull base. Orbits: The bony orbits are grossly intact. Orbital contents are normal in appearance noting bilateral ocular lens implants. Sinuses and mastoids: Clear. Calvarium: Unremarkable. Cervical cord: Partially visualized cervical spinal cord is normal in morphology and signal intensity. IMPRESSION: No acute intracranial abnormality. 04/19/20 09:00 US carotid doppler BI Routine CLINICAL HISTORY: Transient ischemic attack. COMPARISON STUDY: None. TECHNIQUE: Real-time, grayscale, and color Doppler sonography of the carotid and vertebral arteries was performed. Images were viewed in the transverse and longitudinal planes. FINDINGS: There is moderate atherosclerotic plaque. Velocity measurements are listed below. COMMON CAROTID PEAK SYSTOLIC VELOCITY (CM/S): RIGHT 42 LEFT 38 ICA PEAK SYSTOLIC VELOCITY (CM/S): RIGHT 38 LEFT 53 Systolic ratios between the internal to common carotid arteries are normal. Antegrade flow is seen in the vertebral arteries. The external carotid arteries are patent. Blood pressure in the right arm measured 121/66. Blood pressure in the left arm measured 124/76. IMPRESSION: No evidence for a hemodynamically significant stenosis. Hospital Course (1) Weakness: Rosa is an 89-year-old female of RA, COPD, HTN, and hypothyroidism who presented to [facility] on 04/18 at the recommendation of her PCP for evaluation of weakness, which was concerning for stroke, as well as chest pain. Stroke work-up overall negative. She remained hemodynamically stable throughout her stay. Weakness - Clinically, patient reports 2-week history of balance issues, ataxia, intermittent dizziness, generalized weakness, and fatigue without specific FNDs. Also endorses possible worsening of memory - Work-up in the ED overall unremarkable: - CMP revealed slightly elevated BUN and Cr - CBC unremarkable - Lipid profile revealing of total cholesterol of 177 and TGs 63 - CT-Head demonstrated no acute abnormalities - MRI brain demonstrated no acute evidence of stroke - Carotid ultrasound unremarkable - CXR unremarkable - ECG without acute changes - Echo 04/19 showed normal LV function, LVEF 60-65%,mild concentric LV hypertrophy. No significant wall motion abnormalities appreciated. - Neuro consulted for further insight and recommendations: - Etiology overall unclear and will require outpatient follow-up: may represent deconditioning - Check B12, folate, Lyme, D3, ESR -- all WNL - Recommend PT/OT, can continue as outpatient PRN -- cleared for d/c while here, utilize walker at home for weakness - Follow with neurology in outpatient setting for memory and balance - Consider EMG and nerve conduction studies as outpatient Chest Pain - Clinically, patient reports chest pressure/tightness that happens several times each day with exertion, occurring most notably over last several weeks -- relieved with rest: no chest pain while here - Work-up throughout stay: - ECG without evidence of ischemia - Serial troponins negative - Given exertional chest pain, resolved with rest, that does appear anginal in nature -- alongside HEART score that puts her at moderate risk -- pursue nuclear study in outpatient setting for further work-up Atrial Fibrillation - Rate controlled on home medication regimen (metoprolol tartrate 50mg PO b.i.d.) - Not on anticoagulation d/t GIB and SHAYY -- previously on Eliquis, continue to hold COPD: Does not appear to be in exacerbation -- continue albuterol, ipratropium, Breo HTN: metoprolol 50 b.i.d., amlodipine 10 Hypothyroidism: levothyroxine 50mcg (TSH in 10/2019 WNL) RA: leucovorin and MTX -- held during stay (2) Chronic fatigue: (3) Memory deficits: (4) Ataxic gait: (5) Acute kidney injury: (6) Atrial fibrillation: (7) DVT prophylaxis: (8) Visit for screening mammogram: (9) Urinary incontinence: (10) Sessile colonic polyp: (11) Right-sided heart failure: (12) Rheumatoid arthritis: (13) Pulmonary nodule: (14) Pleural effusion: (15) Osteoporosis: (16) Obstructive sleep apnea: (17) Non-Hodgkin's lymphoma: (18) Mammogram abnormal: (19) Macular degeneration: (20) Lymphadenopathy: (21) Iron deficiency anemia: (22) Inguinal lymphadenopathy: (23) Immunization, pneumococcus and influenza: (24) Hypothyroidism: (25) Hypertension: (26) Hypercholesterolemia: (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: (28) Acute pain of left hip: (29) High risk medication use: (30) Generalized osteoarthrosis, unspecified site: (31) Gastritis: (32) Gastric erosion with bleeding: (33) Effusion of right knee: (34) Dysphagia: (35) COPD, moderate: (36) Blood in stool: (37) Anxiety: (38) Anemia: (39) Abnormal weight loss: (40) Abnormal positron emission tomography (PET) scan: (41) Medicare annual wellness visit, subsequent: (42) New onset a-fib: (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: (44) Acute renal insufficiency: Total Time Total Time Spent Total Time Spent (In Minutes): <30 Discharge Plan Discharge Items Patient Disposition: Home - Self-Care Reason For Visit: WEAKNESS, POSSIBLE CVA, CHEST PAIN, UTI, JOHN PAUL Discharge Diagnosis: Weakness 2/2 suspected deconditioning Activity: Per Instructions section Non-emergency contact: 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 Your imaging studies did not show any signs of stroke or other concerning findings of the brain. Your EKG did not show evidence of a heart attack, and blood markers for heart attack were negative (normal). You were assessed by the neurologist and physical therapist and it was felt that your weakness is likely due to deconditioning, and unlikely to be related to stroke or neurologic abnormality. Following physical therapy assessment you are recommended to be discharged home with follow-up physical therapy services. Your history of chest pain with exertion was potentially concerning for underlying coronary disease and while you are not found to have a heart attack at time of admission you are recommended to follow-up with [place] [facility] for a nuclear stress test. This appointment is being arranged as below. Physical therapy assess her strength and it was felt that you are safe to return home. You did have some limitations to gait and strength, it is very important for you to use your walker at home whenever you are moving around the house. Not using your walker, especially with your difficulties with balance, may cause you to fall and sustained serious injury. You have not been prescribed any new medications at this time A followup appointment is being scheduled for you with your primary care doctor, Dr. Mccartney. You should be seen seen within 1 week. You should receive a call to confirm this appointment. If you do not receive a call within 48 hours to confirm this appointment, or need to change this appointment, please call the provider's office at [phone]. A followup appointment is being scheduled for you with [facility]. You should receive a call to confirm this appointment. They will review your ad mission and likely set up a nuclear stress test for you as an outpatient to better evaluate your chest pain. If you do not receive a call within 48 hours to confirm this appointment, or need to change this appointment, please call the provider's office at . If you develop any new or worsening symptoms including fever, chills, sweats, chest pain, chest pressure, difficulty breathing, uncontrolled nausea/vomiting, rash, wheezing, passing out or nearly passing out, bleeding, black/bloody bowel movements, or other new or concerning symptoms please call your primary care physician at [phone], or call [phone] for re-evaluation in the emergency department if you are very concerned. Pending Studies at Discharge: Yes Stand-Alone Forms: My [facility], Smoking Cessation Medications and DC Order Prescriptions: Continued amlodipine 10 mg tablet 10 mg PO DAILY Qty: 90 RF: 3 levothyroxine 50 mcg tablet 50 mcg PO DAILY Qty: 90 RF: 0 methotrexate sodium 2.5 mg tablet 20 mg PO WEEKLY Qty: 90 RF: 3 metoprolol tartrate 50 mg tablet 50 mg PO BID Qty: 180 RF: 3 ipratropium-albuterol 0.5 mg-3 mg(2.5 mg base)/3 mL solution for nebulization 3 ml inhalation Q4H PRN (Reason: shortness of breath or wheezing) Qty: 180 RF: 3 albuterol sulfate 90 mcg/actuation aerosol powdr breath activated 2 puffs inhalation Q4H PRN (Reason: shortness of breath or wheezing) Qty: 3 RF: 3 Hair,Skin and Nails(FA-biotin) 66.7-1,000 mcg tablet 1 tab PO DAILY Qty: 90 RF: 3 acetaminophen 500 mg tablet 500 mg PO Q6H PRN (Reason: fever or pain) RF: 0 leucovorin calcium 5 mg tablet 0 mg PO WEEKLY RF: 0 Calcium 600 with Vitamin D3 600 mg(1,500mg) -400 unit tablet,chewable 1 tab PO DAILY Qty: 90 RF: 3 furosemide 40 mg tablet 40 mg PO DAILY Qty: 90 RF: 3 omeprazole 40 mg capsule,delayed release(DR/EC) 40 mg PO DAILY Qty: 90 RF: 3 pmtwrhnwoen-qpiaiskcb-lxnfdfno 100-62.5-25 mcg blister with device 1 puffs inhalation DAILY Qty: 60 RF: 11 ketoconazole 2 % cream 1 applic topical BID Qty: 30 RF: 5 folic acid 1 mg Tablet 5 mg PO DAILY RF: 0 Discharge Orders: Discharge Order (Routine); Ordered 04/19/20 Ordered By: Saqib Maldonado/Other Patient Handouts: A1C Admission Data Admit Date/Time: 04/18/20 16:38 Attending Provider: Saqib Cui Admit Provider: Ildefonso Cornell Primary Care Provider: Ish Mccartney Other Providers: Cabrera Hagan Other Interventions: Discharge Summary Assessment (RN) Last Done: 04/19/20 16:11 Supervising Physician Co-Signing Physician Notes I personally examined the patient and verified all holly points of history and exam, discussed case, and agree with decision making with Dr Marino feeling ok to go home d/w neurology and input appreciated vitals noted nad heent nc at mmm breathing unlabored no accessory muscles good effort unsteady gait -fortunately nothing appearing c/w cerebrovascular disease -stable for home - cautious/discussed safety awareness/outpt PT chest discomfort -fairly nonspecific but is exertional -echo nonischemic - but enough structural disease that it may explain it (outpt f/u and management - would not want to alter preload/afterload right now in ligh t of unsteady gait) -ekg nonischemia -stress testing as outpt in near future for completeness otherwise as above Resident Activity Tracking Resident Involvement: Resident Care Provided Care Provided: Adult Hospital Medicine
--- NOTE | 2020-04-24 07:44 | Coding Query ---
To promote full compliance with coding requirements relating to patient care, provider participation is requested in all cases of stock roller uncertainty. Please assist us with the question(s) below: Coding Question(s): The diagnosis below was documented in the H&P ("This point time this could be a possible stroke rule out not appropriate for thrombolytic therapy given her atrial fibrillation and age she is at risk, metabolic encephalopathy from urinary tract infection present admission, unstable angina with recurrent chest pain, current gastritis or GI bleeding given her significant history (stable hemoglobin at this time) will admit the patient to sort through these problems") , then subsequently fell off all further documentation. Please indicate if it is still a possible diagnosis or ruled out. Physician's Response(s): URINARY TRACT INFECTION ( ) Diagnosed and POA ( ) Diagnosed and not POA (x ) Ruled out ( ) Other (please specify) METABOLIC ENCEPHALOPATHY ( ) Diagnosed and POA and quickly resolved ( ) Diagnosed and not POA ( x) Ruled out ( ) Other (please specify) UNSTABLE ANGINA WITH CHEST PAIN ( x ) possibly diagnosed and POA - stable for outpatient workup ( ) Diagnosed and not POA ( ) Ruled out ( ) Other (please specify) MTDD
== END 2020-04-19 17:10 | disposition home or self-care (01) | DRG 948 ==
LOC: ED 13:25 → 2S 16:38 → SUATTDRO 16:38 → INTOOBSV 16:38 → 2S 17:13

== ENCOUNTER 2020-05-24 11:30 | Inpatient (IN) ==
[2020-05-24] MEDS ORDERED: MoRPHine SULFATE 2 MG/ML CARP IV STA (12:10)
[2020-05-24] MEDS ORDERED: ONDANSETRON INJ 2 MG/ML 2 ML VIAL IV STA (12:10)
[2020-05-24] MEDS ORDERED: SODIUM CHLORIDE 0.9% 1000ML 1,000 ML IV SCH (12:15)
--- NOTE | 2020-05-24 12:46 | XRay Report ---
XR chest 1V portable CLINICAL HISTORY: weakness COMPARISON STUDY: Chest radiograph April 18, 2020. FINDINGS: Lung volumes are normal. There is no pneumothorax or pleural effusion. A skin fold projects over the left chest. There is no evidence for pulmonary edema or pneumonia. A 2.9 cm right mid lung nodular density is present. There is made of cardiomegaly. IMPRESSION: 1. 2.9 cm right mid lung nodular opacity. This is suspicious for a pulmonary nodule. A chest CT is re commended. 2. Cardiomegaly without evidence for pulmonary edema. ACT 112: Positive. There are findings on this exam that require communication between the performing entity and the patient following Patient Test Result Information Act ([place] Act 112) guidelines. Electronically signed by: Elijah Go M.D. 05/24/2020 12:45 PM
[2020-05-24 12:54] LABS: Basophils # (auto) 0.02 K/uL (0-0.2); Basophils % (auto) 0.2 %; Eosinophils # (auto) 0.04 K/uL (0-0.5); Eosinophils % (auto) 0.5 %; Hematocrit (blood only) 39.3 % (37-47); Immature Granulocytes # (auto) 0.03 K/uL (0.00-0.02); Immature Granulocytes % (auto) 0.4 %; Lymphocytes # (auto) 0.72 K/uL (1.2-3.4); Lymphocytes % (auto) 8.4 %; Mean Corpuscular Hemoglobin 31.4 pg (25-34); Mean Corpuscular Hgb Conc 33.1 g/dL (32-36); Mean Corpuscular Volume 94.9 fL (80-100); Mean Platelet Volume 9.5 fL (7.4-10.4); Monocytes # (auto) 0.64 K/uL (0.11-0.59); Monocytes % (auto) 7.5 %; Neutrophils # (auto) 7.12 K/uL (1.4-6.5); Platelet Count 267 K/uL (130-400); RDW Coefficient of Variation 14.8 % (11.5-14.5); RDW Standard Deviation 49.9 fL (36.4-46.3); Red Blood Count 4.14 M/uL (4.2-5.4); White Blood Count 8.57 K/uL (4.8-10.8)
[2020-05-24 13:18] LABS: Albumin Level 3.9 gm/dl (3.4-5.0); BUN Creatinine Ratio 24.2 (10-20); Calcium 9.8 mg/dl (8.5-10.1); Creatinine Clr Calc Pharmacy 31.4 ml/min; Est GFR (African American) 53.7; Est GFR (Non-African American) 46.3; Magnesium 2.4 mg/dl (1.8-2.4); Potassium 3.5 mmol/L (3.5-5.1)
--- NOTE | 2020-05-24 13:22 | History & Physical Report ---
Date of Service May 24, 2020 Assessment & Plan (1) Osteoporotic compression fracture of spine: Mrs. Adhikari is an 89 year old female with a history of Hypertension, Dyslipidemia, Hypothyroidism, COPD/Emphysema, Rheumatoid Arthritis, Osteoporosis, Non-Hodgkin's Lymphoma, Colonic Polyp, prior GI Bleed x 3 (while on anticoagulation), Sleep Apnea, Permanent Atrial Fibrillation, Severe Tricuspid Regurgitation, Right Sided Heart Failure, and a Hypermetabolic Right Pulmonary Nodule (she was scheduled for a bronchoscopy and biopsy today but that was cancelled) -- who presents today with Intractable Back Pain, T-11 Compression Fracture, after sustaining a fall on the morning of 05/21/2020. She was in her usual state of health that morning and as she was sitting down on a barstool to eat breakfast, she slid off the back of her stool and landed flat on her back. She had the onset of immediate severe lower thoracic spine pain and low back pain. She has been unable to walk, stand, bend, or perform her usual activities of daily living since this injury. She has not been eating because she does not feel hungry, she's in too much pain. Patient denies any numbness, tingling, or weakness in her legs or lower abdomen. She denies any urinary or fecal incontinence. She denies any injury to her head or other body parts with this fall. Patient's daughter is making arrangements for a Rehabilitation Facility in the [facility], and they are hopeful that her mother can transferred there as early as Friday05/26/2020. Recommend the following: -- Admit to Med-Surg for pain control / analgesics. -- MRI of the Thoracic and Lumbar Spine have been ordered. -- ? If she may be a candidate for kyphoplasty. -- PT and OT evaluations. -- Plan to transfer to rehabilitation facility as being arranged by her family. (2) Right middle lobe pulmonary nodule: -- This is a suspected malignancy. -- Bronchoscopy and biopsy was scheduled earlier today, but patient cancelled due to severe back pain. -- Consider getting [facility] Pulmonology involved for possible bronchoscopy/biopsy. (3) Abnormal positron emission tomography (PET) scan: -- As outlined under pulmonary nodule. -- Patient with a history of NHL and skin cancers. (4) Atrial fibrillation: -- Presumed Permanent Atrial Fibrillation. -- HR is controlled. -- Continue Metoprolol Tartrate 75 mg b.i.d.. -- She is not a candidate for anticoagulation -- h/o GIB x 3 on anticoagulation. (5) Hypertension: -- Continue Metoprolol Tartrate 75 mg b.i.d.. -- Continue Amlodipine 10 mg daily. History of Present Illness Chief Complaint: -- Intractable Back Pain. -- T-11 Compression Fracture. -- Unable to walk. Primary Care Provider: Ish Mccartney MD Mrs. Adhikari is an 89 year old female with a history of Hypertension, Dyslipidemia, Hypothyroidism, COPD/Emphysema, Rheumatoid Arthritis, Osteoporosis, Non-Hodgkin's Lymphoma, Colonic Polyp, prior GI Bleed x 3 (while on anticoagulation), Sleep Apnea, Permanent Atrial Fibrillation, Severe Tricuspid Regurgitation, Right Sided Heart Failure, and a Hypermetabolic Right Pulmonary Nodule -- who presents today with Intractable Back Pain, T-11 Compression Fracture, after sustaining a fall on the morning of 05/21/2020. She was in her usual state of health that morning and as she was sitting down on a barstool to eat breakfast, she slid off the back of her stool and landed flat on her back. She had the onset of immediate severe lower thoracic spine pain and low back pain. She has been unable to walk, stand, bend, or perform her usual activities of daily living since this injury. She has not been eating because she does not feel hungry, she's in too much pain. Patient denies any numbness, tingling, or weakness in her legs or lower abdomen. She denies any urinary or fecal incontinence. She denies any injury to her head or other body parts with this fall. She lives with her , but he has a hard time helping her at home and he is anxious. Her daughter came here from [place] to get her mother further evaluated. Patient was seen by her PCP Dr. Mccartney earlier today and since patient is unable to do the things she needs to do at home -- he sent her into the ER. Patient's daughter is making arrangements for a Rehabilitation Facility in the [place] area, and they are hopeful that her mother can transferred there as early as Friday05/26/20. Patient is normally active on a daily basis. She does her chores in the morning, and when the weather is nice -- gardens in the afternoon. She never had difficulty doing these activities or walking in the past. Allergies Allergy/AdvReac Type Severity Reaction Status Date / Time alendronate sodium Allergy Unknown ON [facility] MED Verified 05/24/20 09:53 LIST Home Medications Medication Instructions Recorded Confirmed Type albuterol sulfate 90 mcg/actuation 2 puffs INHALATION Q4H PRN #3 ea 11/05/18 05/24/20 Rx breath activated powder inhaler ipratropium 0.5 mg-albuterol 3 mg 3 ml INHALATION Q4H PRN #180 ml 11/05/18 05/24/20 Rx (2.5 mg base)/3 mL nebulization soln acetaminophen 500 mg tablet 500 mg PO Q6H PRN tab 01/16/19 05/24/20 History calcium carbonate-vitamin D3 600 1 tab PO DAILY #90 tab 01/19/19 05/24/20 Rx mg(1,500 mg)-400 unit chewable tablet amlodipine 10 mg tablet 10 mg PO DAILY #90 tab 07/05/19 05/24/20 Rx levothyroxine 50 mcg tablet 50 mcg PO DAILY #90 tab 03/31/20 05/24/20 Rx methotrexate sodium 2.5 mg tablet 20 mg PO WEEKLY #90 tab 03/31/20 05/24/20 Rx folic acid 5 mg PO DAILY 04/18/20 05/24/20 History furosemide 20 mg tablet 20 mg PO DAILY #90 tab 04/26/20 05/24/20 Rx omeprazole 40 mg capsule,delayed 40 mg PO DAILY cap 04/26/20 05/24/20 History release metoprolol tartrate 50 mg tablet 75 mg PO BID #270 tab 05/17/20 05/24/20 Rx calcitonin (salmon) 200 1 spray INTRANASAL (ALT) DAILY 05/24/20 05/24/20 Rx unit/actuation nasal spray #3.7 ml jubojzghved-jsecwlprw-buanshev 1 puffs INHALATION DAILY 05/24/20 05/24/20 History [Trelegy Ellipta] ketoconazole 1 applic TOPICAL BID PRN 05/24/20 05/24/20 History tramadol 50 mg tablet See Rx Instructions PO QID PRN #40 05/24/20 05/24/20 Rx tab Past Med/Surg History Medical History Abnormal positron emission tomography (PET) scan Abnormal weight loss Acute pain of left hip Anemia Anemia Anxiety Atrial fibrillation Blood in stool COPD, moderate Dysphagia Effusion of right knee Gait apraxia Gastric erosion with bleeding Gastritis Generalized osteoarthrosis, unspecified site High risk medication use Hyperactivity of bladder Hypercholesterolemia Hypertension Hypothyroidism Immunization, pneumococcus and influenza Inguinal lymphadenopathy Iron deficiency anemia Leg edema Lymphadenopathy Macular degeneration Mammogram abnormal New onset a-fib Non-Hodgkin's lymphoma Obstructive sleep apnea Osteoporosis Osteoporotic compression fracture of spine Pleural effusion Pulmonary nodule Rheumatoid arthritis Right middle lobe pulmonary nodule Right-sided heart failure Right-sided heart failure Sessile colonic polyp Urinary incontinence Visit for screening mammogram Surgical History History of cataract surgery History of colonoscopy History of dilation and curettage History of knee replacement History of Mohs micrographic surgery for skin cancer History of tonsillectomy Family History Daughter Multiple sclerosis Mother , age 50 of metastatic cancer Cancer Father , age 64 from a gasoline fire accident No problems noted. 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 HEENT: Head is atraumatic, normocephalic. EOM's intact. Facies symmetric. No perioral cyanosis. NECK: No JVD. JVP is at the level of the clavicle sitting upright. Carotid upstrokes are + 2 bilaterally. CHEST/LUNGS: Diminished breath sounds throughout, no wheezes, rales, or crackles. CVS: S1 and S2 are irregularly irregular with an apical rate of 84 bpm. There is a grade 2/6 apical systolic murmur. No obvious diastolic murmurs. No gallops or rubs. PMI is nondisplaced. No lifts, heaves, or thrills. No abdominal aortic or renal bruits. ABDOMINAL EXAM: Bowel sounds are present. No masses, organomegaly, or tenderness. EXTREMITIES: No clubbing or cyanosis. No edema. Intact radial pulses bilaterally. NEUROLOGIC EXAM: Patient is awake, alert, and oriented. Pleasant and cooperative. Answers questions appropriately. Speech is clear. Sensation intact to light touch over bilateral lower extremities. MUSCULOSKELETAL EXAM: Tender to palpation over T-11, spasm and tightness in the thoracic and paralumbar musculature. Multiple joint deformities of finger joints consistent with RA. Constitutional: WD/WN, vitals as above Eyes: normal visual aguayo by confrontation and + anicteric sclerae Neck: normal visual inspection and trachea midline Respiratory: normal respiratory effort, lungs clear to auscultation Cardiovascular: Rate/Rhythm: regular rate and regular rhythm Gastrointestinal (Abdomen): Inspection/Auscultation: abdomen not distended Percussion/Palpation: abdomen soft; abdomen nontender Musculoskeletal: Head/Neck/Chest: normocephalic and head atraumatic Neg for peripheral LE edema, + pedal pulses Skin: no rashes, warm and dry Neurologic: awake; not confused Speech / Cognition: normal speech Psychiatric: A+Ox3, euthymic affect Lymphatic: Exam as done by Lorna Shane DO Results & Data Results & Data ([facility]) Vital Signs (Past 12 Hours) Vital Signs Temp Pulse Resp BP Pulse Ox 05/24/20 12:30 86 L 05/24/20 12:15 86 L 05/24/20 11:39 36.1 C L 97 H 19 144/88 H 98 Laboratory Results Laboratory Results - last 24 hr 05/24/20 05/24/20 Unknown Unknown WBC 8.57 RBC 4.14 L Hgb 13.0 Hct 39.3 MCV 94.9 MCH 31.4 MCHC 33.1 RDW Std Deviation 49.9 H RDW Coeff of Kandy 14.8 H Plt Count 267 MPV 9.5 Immature Gran % (Auto) 0.4 Neut % (Auto) 83.0 Lymph % (Auto) 8.4 Jackson % (Auto) 7.5 Eos % (Auto) 0.5 Baso % (Auto) 0.2 Neut # (Auto) 7.12 H Lymph # (Auto) 0.72 L Jackson # (Auto) 0.64 H Eos # (Auto) 0.04 Baso # (Auto) 0.02 Immature Gran # (Auto) 0.03 H Sodium 141 Potassium 3.5 Chloride 107 Carbon Dioxide 25 Anion Gap 9.0 BUN 26 H Creatinine 1.07 Est Cr Clr Drug Dosing 31.4 Est GFR ( Amer) 53.7 Est GFR (Non-Af Amer) 46.3 BUN/Creatinine Ratio 24.2 H Glucose 112 H Calcium 9.8 Magnesium 2.4 Total Bilirubin 0.5 AST 18 ALT 19 Alkaline Phosphatase 92 Total Protein 7.8 Albumin 3.9 Globulin 3.9 Albumin/Globulin Ratio 1.0 TSH 2.870 Diagnostic Findings CXR 05/24/2020: 1. 2.9 cm right mid lung nodular opacity. This is suspicious for a pulmonary nodule. A chest CT is recommended. 2. Cardiomegaly without evidence for pulmonary edema. Medications Administered Sodium Chloride (Nss 1000ml) 1,000 mls @ 75 mls/hr IV .[id number] ELBA Stop: 05/25/20 01:34 Last Admin: 05/24/20 12:38 Dose: 75 mls/hr Documented by: [id number] Discontinued Medications Morphine Sulfate (Morphine Sulfate 2 Mg/Ml Carp) 2 mg IV NOW STA Stop: 05/24/20 12:11 Last Admin: 05/24/20 12:37 Dose: 2 mg Documented by: [id number] Ondansetron HCl (Ondansetron Inj 2 Mg/Ml 2 Ml Vial) 4 mg IV NOW STA Stop: 05/24/20 12:11 Last Admin: 05/24/20 12:37 Dose: 4 mg Documented by: [id number] Code Status & VTE Plan Code Status DNR/DNI VTE Prophylaxis Plan VTE Prophylaxis will be ordered: Yes Supervising Physician Co-Signing Physician Notes Pt seen and examined by me. Denies chest pain or SOB. Tolerating PO without issue. She states she is fairly comfortable, but pain is starting to return. Pt fell off a stool on Friday and was evaluated in the [place] ED. Dx with compression fx and d/c'd to home. She lives alone and has not been able to ambulate at all. Her daughter lives in [place] and came down to help. She has arranged for rehab in [place], but they cannot take pt until Friday. Agree with HPI/ROS as noted by PA See above for my exam in PE section Agree with plan as outlined above T11 compression frx Pain control Added calcitonin Plans for rehab in [place] on Friday PG Care Time/CCT Total # of Minutes Spent Total Time Spent with Patient: Total time spent is greater than 50% in coordination of care (as documented) at patient's floor/unit and/or counseling patient:40 Coding Level of Care Code 38466 Initial Inpt Care Lvl 3 Diagnoses Osteoporotic compression fracture of spine M80.88XA Right middle lobe pulmonary nodule R91.1 Abnormal positron emission tomography (PET) scan R94.8 Atrial fibrillation I48.91 Atrial fibrillation type: unspecified Hypertension I10 Time Spent (min) 60 (1) Atrial fibrillation Atrial fibrillation type: unspecified Qualified Code(s): I48.91 - Unspecified atrial fibrillation
[2020-05-24 13:28] LABS: Bilirubin,Total 0.5 mg/dl (0.2-1); Globulin 3.9 gm/dl (2.5-4.0); Thyroid Stimulating Hormone 2.87 uIu/ml (0.300-4.500); Total Protein 7.8 gm/dl (6.4-8.2)
--- NOTE | 2020-05-24 17:02 | Magnetic Resonance Report ---
MRI OF THE THORACIC SPINE WITHOUT IV CONTRAST CLINICAL HISTORY: Intractable back pain. Recent fall. Compression fracture of T11. COMPARISON STUDY: PET/CT dated 03/01/2016. TECHNIQUE: MRI of the thoracic spine is performed utilizing various T1 and T2-weighted sequences in t he axial and sagittal planes. IV contrast was not administered for this examination. FINDINGS: There is an acute compression fracture of T11 with mild to moderate loss of height and asso ciated marrow edema. Fragments are retropulsed by up to 3 mm. This effaces the ventral subarachnoid s pace. There are mild chronic superior endplate compression deformity is of T2, T3, T6, T7, and T8 the re is a T1 hypointense, T2 hyperintense lesion in the T3 vertebral body which measures up to 1.7 cm. No bony lesion was seen at this site on 03/01/2016 PET/CT. No additional bony lesions are clearly juliette ntified. A small hemangioma is incidentally noted in the body of T8. The transverse and spinous proce sses appear intact. Small anterior osteophytes are seen throughout and there is mild hyperlordosis. D egenerative disc desiccation and mild loss of height is seen throughout the thoracic spine. There is no large disc herniation. There is no evidence of high-grade neural foraminal stenosis throughout the thoracic spine. The thoracic spinal cord is normal in morphology and signal intensity. The conus med ullaris terminates at the level of L1. The paraspinous soft tissues are normal as visualized. The mary g parenchyma is grossly unremarkable but not well evaluated by MRI. A 1.4 cm cyst is seen in the part ially imaged left kidney. Degenerative endplate change and endplate edema seen at L1-L2 and L2-L3. IMPRESSION: 1. There is an acute compression fracture of T11 with mild to moderate loss of height and minimally r etropulsed fragments. 2. Additional mild chronic compression deformities as above. 3. There is an indeterminant lesion in the body of T3. Although this could potentially represent an a typical hemangioma, this was not clearly seen on 12/16/2015 PET examination and the signal characteris tics are concerning for a metastasis. Correlation with a chest CT is recommended for further assessme nt. 4. Additional findings as above. Electronically signed by: Ish Pearce M.D. 05/24/2020 5:00 PM
[2020-05-24] MEDS ORDERED: ZOLPIDEM TARTRATE 5 MG TAB PO PRN (17:18)
[2020-05-24] MEDS ORDERED: POLYETHYLENE (MIRALAX) 17 GM PACK PO PRN (17:18)
[2020-05-24] MEDS ORDERED: ALUMINUM/MAGNESIUM SUSP 30 ML UDC PO PRN (17:18)
[2020-05-24] MEDS ORDERED: MAGNESIUM HYDROXIDE SUSP 30 ML UDC PO PRN (17:18)
[2020-05-24] MEDS ORDERED: ONDANSETRON INJ 2 MG/ML 2 ML VIAL IV PRN (17:18)
[2020-05-24] MEDS ORDERED: KETOCONAZOLE 2% CR 15 GM TUBE EXT PRN (17:18)
[2020-05-24] MEDS ORDERED: ALBUT/IPRATROP 3MG/0.5MG NEB 3 ML VIAL INH PRN (17:18)
[2020-05-24] MEDS ORDERED: MoRPHine SULFATE 2 MG/ML CARP IV PRN (17:18)
--- NOTE | 2020-05-24 17:19 | Magnetic Resonance Report ---
MRI OF LUMBAR SPINE WITHOUT IV CONTRAST CLINICAL HISTORY: Recent fall. Intractable back pain. COMPARISON STUDY: No priors. TECHNIQUE: MRI of the lumbar spine is performed utilizing various T1 and T2-weighted sequences in the axial and sagittal planes. IV contrast was not administered for this examination. FINDINGS: Lumbar spine: Marrow signal intensity is heterogeneous. Vertebral body height is maintained throughou t the lumbar spine. There is minimal retrolisthesis at L1-L2 and L2-L3. Alignment is otherwise preser marielos. There is an acute compression fracture of T11 with [id number] loss of height, marrow edema , and minimally retropulsed fragments. See report of thoracic spine MRI performed concurrently for de tailed thoracic spinal findings. Small anterior and lateral marginal osteophytes are seen throughout the lumbar spine. The transverse and spinous processes appear intact. There is no evidence of spondyl olysis. Chronic degenerative endplate changes seen at all lumbar levels. Mild endplate edema is seen at L1-L2 and L2-L3. No destructive bony lesion is clearly identified. Intervertebral discs: Degenerative disc desiccation and loss of height is seen throughout the lumbar spine. Loss of height is moderate to severe at L1-L2, L2-L3, and L5-S1. Spinal cord: The visualized spinal cord is normal in morphology and signal intensity. The conus medul angélica terminates at the L1-L2 interspace. The nerve roots of the cauda equina are normal in morpholog y. L1-L2: There is a posterior disc osteophyte complex. The central canal is clear. Mild bilateral subar ticular stenosis is noted, left greater than right. In conjunction with facet arthropathy, there is m oderate right and mild left neural foraminal stenosis. L2-L3: There is broad-based posterior disc bulge. No significant acquired compromise of the central c anal is identified. Disc bulge eccentric to the right causes severe right-sided subarticular stenosis and impinges on the exiting right L3 nerve root. This also abuts the transiting right-sided nerve ro ots. In conjunction with facet arthropathy, there is mild to moderate bilateral neural foraminal sten osis, left greater than right. L3-L4: There is minimal posterior disc bulge. The central canal is clear. There is mild bilateral sub articular stenosis. In conjunction with facet arthropathy, there is mild bilateral neural foraminal n arrowing. L4-L5: There is minimal posterior disc bulge. The central canal is clear. There is bilateral subartic ular stenosis, and the disc bulge abuts the transiting nerve roots. In conjunction with facet arthrop athy, there is mild bilateral neural foraminal stenosis. L5-S1: There is a small posterior disc bulge with annular fissure. No acquired compromise of the cent ral canal is identified. Facet arthropathy contributes to mild to moderate bilateral neural foraminal stenosis. Sacrum: The visualized sacrum is normal in morphology and signal intensity. Soft tissues: There is fatty atrophy of the paraspinous musculature. A 1.4 cm cyst is noted in the le ft kidney. No retroperitoneal lymphadenopathy is seen. IMPRESSION: 1. No acute fracture is seen involving the lumbar spine. 2. There is an acute compression fracture of T11. See MRI of the thoracic spine performed concurrentl y for detailed thoracic spinal findings. 3. Multilevel lumbosacral spondylosis as above. See discussion for detailed level by level analysis. 4. Degenerative disc disease with associated endplate edema as above. Dictated: 05/24/2020 4:20 PM Transcribed: 05/24/2020 5:16 PM Mana [id number] [email or web address] Electronically signed by: Ish Pearce M.D. 05/24/2020 5:18 PM
[2020-05-24] MEDS ORDERED: ALBUTEROL HFA 8 GM INHALER INH PRN (17:35)
[2020-05-24] MEDS ORDERED: ACETAMINOPHEN 500 MG TAB PO PRN (17:44)
--- NOTE | 2020-05-24 18:20 | Emergency Department Note ---
Impression & Plan Compression fracture of thoracic vertebra, Intractable back pain ED Provider Note NAME: RANULFO GOLDMAN AGE: 89 SEX: F ARRIVES VIA: Walk-In INFORMANT: Patient ED PROVIDER(S): Jess Mcmahan MD CHIEF COMPLAINT: Back pain PLAN: Disposition: Admission Condition: Fair Referral: Hospitalist MEDICAL DECISION MAKING: This patient was evaluated and appeared to be in no significant distress. IV access was obtained and laboratory work was drawn. The patient was placed on the surveillance monitor and was noted to be in atrial fibrillation at 88 bpm. Patient was medicated with IV morphine and Zofran. She was hydrated with normal saline solution. Patient's outside records were reviewed and it appears that she was diagnosed with a T11 compression fracture on a chest CT after a trauma work-up. Given the patient's intractable pain and inability to control the symptoms at home, MRI of the thoracic spine was ordered. Of note there is a lung mass appreciated on her chest CT at the outside facility and a pet scan in our records. I did discuss the case with Dr. Shane of the hospitalist service who will evaluate the patient for further management. Triage Nursing notes reviewed. Additional history obtained from daughter Prior medical records reviewed Vital Signs: reviewed and remarkable for no significant abnormalities Differential diagnosis: Musculoskeletal, disc herniation, fracture, metastatic disease, cord compression, discitis, sciatica, cauda equina, infection, aortic disease, renal colic, gastrointestinal, as well as other pathologies. ER treatment provided: IV morphine IV Zofran Diagnostics interpreted by me: ECG: Atrial fibrillation at 76 bpm. Previous anterior septal infarct. Nonspecific ST and T wave abnormalities with a poor quality baseline for interpretation. QTc is 418. Cardiac Monitoring: An order for cardiac monitoring was placed and patient is noted to be in atrial fibrillation at 80 bpm. Laboratory studies: See below Imaging studies: XR chest 1V portable CLINICAL HISTORY: weakness COMPARISON STUDY: Chest radiograph April 18, 2020. FINDINGS: Lung volumes are normal. There is no pneumothorax or pleural effusion. A skin fold projects over the left chest. There is no evidence for pulmonary edema or pneumonia. A 2.9 cm right mid lung nodular density is present. There is made of cardiomegaly. IMPRESSION: 1. 2.9 cm right mid lung nodular opacity. This is suspicious for a pulmonary nodule. A chest CT is recommended. 2. Cardiomegaly without evidence for pulmonary edema. ACT 112: Positive. There are findings on this exam that require communication between the performing entity and the patient following Patient Test Result Information Act ([place] Act 112) guidelines. Electronically signed by: Elijah Go M.D. 05/24/2020 12:45 PM Dictated: 05/24/20 1240Transcribed: 05/24/20 1240 MRI OF THE THORACIC SPINE WITHOUT IV CONTRAST CLINICAL HISTORY: Intractable back pain. Recent fall. Compression fracture of T11. COMPARISON STUDY: PET/CT dated 03/01/2016. TECHNIQUE: MRI of the thoracic spine is performed utilizing various T1 and T2- weighted sequences in the axial and sagittal planes. IV contrast was not administered for this examination. FINDINGS: There is an acute compression fracture of T11 with mild to moderate loss of height and associated marrow edema. Fragments are retropulsed by up to 3 mm. This effaces the ventral subarachnoid space. There are mild chronic superior endplate compression deformity is of T2, T3, T6, T7, and T8 there is a T1 hypointense, T2 hyperintense lesion in the T3 vertebral body which measures up to 1.7 cm. No bony lesion was seen at this site on 03/01/2016 PET/CT. No additional bony lesions are clearly identified. A small hemangioma is incidentally noted in the body of T8. The transverse and spinous processes appear intact. Small anterior osteophytes are seen throughout and there is mild hyperlordosis. Degenerative disc desiccation and mild loss of height is seen throughout the thoracic spine. There is no large disc herniation. There is no evidence of high-grade neural foraminal stenosis throughout the thoracic spine. The thoracic spinal cord is normal in morphology and signal intensity. The conus medullaris terminates at the level of L1. The paraspinous soft tissues are normal as visualized. The lung parenchyma is grossly unremarkable but not well evaluated by MRI. A 1.4 cm cyst is seen in the partially imaged left kidney. Degenerative endplate change and endplate edema seen at L1-L2 and L2-L3. IMPRESSION: 1. There is an acute compression fracture of T11 with mild to moderate loss of height and minimally retropulsed fragments. 2. Additional mild chronic compression deformities as above. 3. There is an indeterminant lesion in the body of T3. Although this could potentially represent an atypical hemangioma, this was not clearly seen on 12/16/2015 PET examination and the signal characteristics are concerning for a metastasis. Correlation with a chest CT is recommended for further assessment. 4. Additional findings as above. Electronically signed by: Ish Pearce M.D. 05/24/2020 5:00 PM Dictated: 05/24/20 154Transcribed: 05/24/20 154 MRI OF LUMBAR SPINE WITHOUT IV CONTRAST CLINICAL HISTORY: Recent fall. Intractable back pain. COMPARISON STUDY: No priors. TECHNIQUE: MRI of the lumbar spine is performed utilizing various T1 and T2- weighted sequences in the axial and sagittal planes. IV contrast was not admini stered for this examination. FINDINGS: Lumbar spine: Marrow signal intensity is heterogeneous. Vertebral body height is maintained throughout the lumbar spine. There is minimal retrolisthesis at L1-L2 and L2-L3. Alignment is otherwise preserved. There is an acute compression fracture of T11 with [id number] loss of height, marrow edema, and minimally retropulsed fragments. See report of thoracic spine MRI performed concurrently for detailed thoracic spinal findings. Small anterior and lateral marginal osteophytes are seen throughout the lumbar spine. The transverse and spinous processes appear intact. There is no evidence of spondylolysis. Chronic degenerative endplate changes seen at all lumbar levels. Mild endplate edema is seen at L1-L2 and L2-L3. No destructive bony lesion is clearly identified. Intervertebral discs: Degenerative disc desiccation and loss of height is seen throughout the lumbar spine. Loss of height is moderate to severe at L1-L2, L2- L3, and L5-S1. Spinal cord: The visualized spinal cord is normal in morphology and signal intensity. The conus medullaris terminates at the L1-L2 interspace. The nerve roots of the cauda equina are normal in morphology. L1-L2: There is a posterior disc osteophyte complex. The central canal is clear. Mild bilateral subarticular stenosis is noted, left greater than right. In conjunction with facet arthropathy, there is moderate right and mild left neural foraminal stenosis. L2-L3: There is broad-based posterior disc bulge. No significant acquired compromise of the central canal is identified. Disc bulge eccentric to the right causes severe right-sided subarticular stenosis and impinges on the exiting right L3 nerve root. This also abuts the transiting right-sided nerve roots. In conjunction with facet arthropathy, there is mild to moderate bilateral neural foraminal stenosis, left greater than right. L3-L4: There is minimal posterior disc bulge. The central canal is clear. There is mild bilateral subarticular stenosis. In conjunction with facet arthropathy, there is mild bilateral neural foraminal narrowing. L4-L5: There is minimal posterior disc bulge. The central canal is clear. There is bilateral subarticular stenosis, and the disc bulge abuts the transiting nerve roots. In conjunction with facet arthropathy, there is mild bilateral neural foraminal stenosis. L5-S1: There is a small posterior disc bulge with annular fissure. No acquired compromise of the central canal is identified. Facet arthropathy contributes to mild to moderate bilateral neural foraminal stenosis. Sacrum: The visualized sacrum is normal in morphology and signal intensity. Soft tissues: There is fatty atrophy of the paraspinous musculature. A 1.4 cm cyst is noted in the left kidney. No retroperitoneal lymphadenopathy is seen. IMPRESSION: 1. No acute fracture is seen involving the lumbar spine. 2. There is an acute compression fracture of T11. See MRI of the thoracic spine performed concurrently for detailed thoracic spinal findings. 3. Multilevel lumbosacral spondylosis as above. See discussion for detailed level by level analysis. 4. Degenerative disc disease with associated endplate edema as above. Dictated: 05/24/2020 4:20 PM Transcribed: 05/24/2020 5:16 PM [facility] [id number] Electronically signed by: Ish Pearce M.D. 05/24/2020 5:18 PM Dictated: 05/24/20 1620Transcribed: 05/24/20 1716 Consultation(s): Hospitalist HPI: 89/F arrives for evaluation of intractable back pain. Patient states approximately 5 days ago she fell backwards off of a stool and landed on her back. She was seen at the [facility] and diagnosed with a compression fracture of T11. She was advised to use Tylenol and ibuprofen but this has not been controlling her symptoms. Her daughter took her to see her primary care physician today, Dr. Mccartney, who has referred her to the hospital as she was unable to get in inpatient rehabilitation bed today. Patient is apparently unable to be adequately cared for by her family at home and they are not able to control her pain sufficiently. ROS: See above HPI for pertinent positives & negatives. A total of 10 systems reviewed and were otherwise negative. PAST MEDICAL HISTORY:See Below PAST SURGICAL HISTORY:See Below FAMILY HISTORY:See Below SOCIAL HISTORY:See Below HOME MEDICATIONS:See Below ALLERGIES:See Below VITALS:See Below PHYSICAL EXAMINATION: Vital signs reviewed. General: Elderly, somewhat ill-appearing 89-year-old female, in significant discomfort HEENT: No scleral icterus, PERRLA, neck supple. Atraumatic. Cardiovascular: Regular rate and rhythm, no extra sounds. Pulmonary: Clear to auscultation bilaterally, normal work of breathing. Abdomen: Soft, nontender, nondistended, positive bowel sounds. Musculoskeletal: Tender to palpation along the mid thoracic spine without step- off or deformity noted. Patient is lying on her right side due to significant pain with any movement. Neurologic: Patient awake alert and oriented x 3 moves all extremities however has significant pain with movement of the lower extremities. Full strength is noted. Skin: Warm, dry, no rash Jess Mcmahan MD Past Med/Surg History Medical History Abnormal positron emission tomography (PET) scan Abnormal weight loss Acute pain of left hip Anemia Anemia Anxiety Atrial fibrillation Blood in stool COPD, moderate Dysphagia Effusion of right knee Gait apraxia Gastric erosion with bleeding Gastritis Generalized osteoarthrosis, unspecified site High risk medication use Hyperactivity of bladder Hypercholesterolemia Hypertension Hypothyroidism Immunization, pneumococcus and influenza Inguinal lymphadenopathy Iron deficiency anemia Leg edema Lymphadenopathy Macular degeneration Mammogram abnormal New onset a-fib Non-Hodgkin's lymphoma Obstructive sleep apnea Osteoporosis Osteoporotic compression fracture of spine Pleural effusion Pulmonary nodule Rheumatoid arthritis Right middle lobe pulmonary nodule Right-sided heart failure Right-sided heart failure Sessile colonic polyp Urinary incontinence Visit for screening mammogram Surgical History History of cataract surgery History of colonoscopy History of dilation and curettage History of knee replacement History of Mohs micrographic surgery for skin cancer History of tonsillectomy Family History Daughter Multiple sclerosis Mother , age 50 of metastatic cancer Cancer Father , age 64 from a gasoline fire accident No problems noted. 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67 How many Children do You have: 1 Other Information That Helps Us Care for You: No Feels Safe at Home: Yes Seatbelt Use: always Assistive Devices: Walker Allergies Allergies Allergy/AdvReac Type Severity Reaction Status Date / Time alendronate sodium Allergy Unknown ON [facility] MED Verified 05/24/20 09:53 LIST Home Meds Home Medications Medication Instructions Recorded Confirmed acetaminophen 500 mg tablet 500 mg PO Q6H PRN tab 01/16/19 05/24/20 folic acid 5 mg PO DAILY 04/18/20 05/24/20 omeprazole 40 mg capsule,delayed 40 mg PO DAILY cap 04/26/20 05/24/20 release qosyhmoikqy-njwnkbujy-esymolfq 1 puffs INHALATION DAILY 05/24/20 05/24/20 [Trelegy Ellipta] ketoconazole 1 applic TOPICAL BID PRN 05/24/20 05/24/20 Previous Rx's Medication Instructions Recorded albuterol sulfate 90 mcg/actuation 2 puffs INHALATION Q4H PRN #3 ea 11/05/18 breath activated powder inhaler ipratropium 0.5 mg-albuterol 3 mg 3 ml INHALATION Q4H PRN #180 ml 11/05/18 (2.5 mg base)/3 mL nebulization soln calcium carbonate-vitamin D3 600 1 tab PO DAILY #90 tab 01/19/19 mg(1,500 mg)-400 unit chewable tablet amlodipine 10 mg tablet 10 mg PO DAILY #90 tab 07/05/19 levothyroxine 50 mcg tablet 50 mcg PO DAILY #90 tab 03/31/20 methotrexate sodium 2.5 mg tablet 20 mg PO WEEKLY #90 tab 03/31/20 furosemide 20 mg tablet 20 mg PO DAILY #90 tab 04/26/20 metoprolol tartrate 50 mg tablet 75 mg PO BID #270 tab 05/17/20 calcitonin (salmon) 200 1 spray INTRANASAL (ALT) DAILY 05/24/20 unit/actuation nasal spray #3.7 ml tramadol 50 mg tablet See Rx Instructions PO QID PRN #40 05/24/20 tab Results & Data (ED) Vital Signs Vital Signs - 24 hr 05/24/20 11:39 05/24/20 12:15 05/24/20 12:30 Temperature 36.1 C L Temperature Source Oral Pulse Rate 97 H 88 Pulse Rate from SpO2 Sensor 92 H Respiratory Rate 19 38 H Respiratory Effort / Characteristics Non-Labored Respiratory Depth Normal Blood Pressure 144/88 H 143/81 H Blood Pressure Mean 106 101 Pulse Oximetry 98 86 L 100 Oxygen Delivery Method Room Air Room Air Room Air Nasal Cannula Oxygen Flow Rate 0 Sepsis Recent Fever Within 48 Hours No Sepsis New/Unexplained Change in Mental Status No Sepsis Action Taken by Nursing No Action Required Oxygen Flow Rate - Titration 2 Pulse Oximetry Post Tiitration 97 05/24/20 13:00 05/24/20 13:30 05/24/20 14:00 Temperature Temperature Source Pulse Rate 89 84 90 Pulse Rate from SpO2 Sensor 89 88 75 Respiratory Rate 30 H 28 H 22 Respiratory Effort / Characteristics Respiratory Depth Blood Pressure 149/89 H 159/92 H 157/97 H Blood Pressure Mean 109 114 117 Pulse Oximetry 99 97 100 Oxygen Delivery Method Oxygen Flow Rate Sepsis Recent Fever Within 48 Hours Sepsis New/Unexplained Change in Mental Status Sepsis Action Taken by Nursing Oxygen Flow Rate - Titration Pulse Oximetry Post Tiitration 05/24/20 14:30 05/24/20 15:00 Temperature Temperature Source Pulse Rate 85 79 Pulse Rate from SpO2 Sensor 83 97 H Respiratory Rate 20 19 Respiratory Effort / Characteristics Respiratory Depth Blood Pressure 144/89 H 160/95 H Blood Pressure Mean 107 116 Pulse Oximetry 98 98 Oxygen Delivery Method Oxygen Flow Rate Sepsis Recent Fever Within 48 Hours Sepsis New/Unexplained Change in Mental Status Sepsis Action Taken by Nursing Oxygen Flow Rate - Titration Pulse Oximetry Post Tiitration Home Medications Current Medication List: was personally reviewed by me Laboratory Data Attestation: I reviewed the patient's lab results. Result diagrams: 05/26/20 05:37 05/26/20 05:37 Lab Results 05/24/20 05/24/20 Range/Units 14:05 14:05 [facility]19 [facility] SARS-[facility]-2, RNA, NAAT NEGATIVE (NEGATIVE) Administered Medications Al Hydrox/Mg Hydrox/Simethicone (Aluminum/Magnesium Susp 30 Ml Udc) 30 ml PO Q6H PRN PRN Reason: Dyspepsia Stop: 06/23/20 17:17 Last Admin: 05/25/20 11:46 Dose: 30 ml Documented by: [id number] Amlodipine Besylate (Amlodipine Besylate 5 Mg Tab) 10 mg PO DAILY [facility]BA Stop: 06/24/20 08:59 Last Admin: 05/26/20 08:29 Dose: 10 mg Documented by: [id number] Admin: 05/25/20 07:54 Dose: 10 mg Documented by: [id number] Calcitonin Dawson (Calcitonin Dawson Na 200 Iu/Ac 3.7 Ml Btl) 1 sprays NA DAILY [facility]BA Stop: 06/24/20 08:59 Last Admin: 05/26/20 08:54 Dose: 1 sprays Documented by: [id number] Admin: 05/25/20 07:59 Dose: 1 sprays Documented by: [id number] Docusate Sodium (Docusate Sodium 100 Mg Cap) 100 mg PO BID [facility] Stop: 06/24/20 12:44 Last Admin: 05/26/20 20:27 Dose: 100 mg Documented by: [id number] Admin: 05/26/20 08:54 Dose: 100 mg Documented by: [id number] Admin: 05/25/20 21:25 Dose: 100 mg Documented by: [id number] Admin: 05/25/20 12:24 Dose: 100 mg Documented by: [id number] Fluticasone Furoate (Fluticasone Furoate 100mcg 14 Puffs/Inhaler) 1 puffs INH DAILY [facility] Stop: 06/24/20 08:59 Last Admin: 05/26/20 08:54 Dose: 1 puffs Documented by: [id number] Admin: 05/25/20 12:31 Dose: 1 puffs Documented by: [id number] Folic Acid (Folic Acid 1 Mg Tab) 5 mg PO DAILY ELBA Stop: 06/24/20 08:59 Last Admin: 05/26/20 08:29 Dose: 5 mg Documented by: [id number] Admin: 05/25/20 07:56 Dose: 5 mg Documented by: [id number] Furosemide (Furosemide 20 Mg Tab) 20 mg PO DAILY [facility] Stop: 06/24/20 08:59 Last Admin: 05/26/20 08:53 Dose: 20 mg Documented by: [id number] Admin: 05/25/20 07:54 Dose: 20 mg Documented by: [id number] Levothyroxine Sodium (Levothyroxine Sodium 50 Mcg Tablet) 50 mcg PO DAILYBB [facility] Stop: 06/24/20 08:59 Last Admin: 05/26/20 05:24 Dose: 50 mcg Documented by: [id number] Admin: 05/25/20 07:55 Dose: 50 mcg Documented by: [id number] Lidocaine (Lidocaine 5% 1 Patch) 1 patch TD QAM [facility] Stop: 06/25/20 10:59 Last Admin: 05/26/20 11:43 Dose: 1 patch Documented by: [id number] Metoprolol Tartrate (Metoprolol Tartrate 25 Mg Tab) 75 mg PO BID [facility] Stop: 06/23/20 20:59 Last Admin: 05/26/20 20:27 Dose: 75 mg Documented by: [id number] Admin: 05/26/20 08:53 Dose: 75 mg Documented by: [id number] Admin: 05/25/20 21:25 Dose: 75 mg Documented by: [id number] Admin: 05/25/20 07:53 Dose: 75 mg Documented by: [id number] Admin: 05/24/20 20:33 Dose: 75 mg Documented by: [id number] Miscellaneous (Remove Lidoderm Patch) 1 ea N/A DAILY@2100 [facility] Stop: 06/25/20 20:59 Last Admin: 05/26/20 20:27 Dose: 1 ea Documented by: [id number] Multivitamins/Minerals (Calcium 600mg + Vit D 400 Iu Tab) 1 tab PO DAILY [facility] Stop: 06/24/20 08:59 Last Admin: 05/26/20 08:29 Dose: 1 tab Documented by: [id number] Admin: 05/25/20 07:54 Dose: 1 tab Documented by: [id number] Ondansetron HCl (Ondansetron Inj 2 Mg/Ml 2 Ml Vial) 4 mg IV Q6H PRN PRN Reason: Nausea Stop: 06/23/20 17:17 Last Admin: 05/25/20 12:24 Dose: 4 mg Documented by: [id number] Oxycodone HCl (Oxycodone Hcl Ir 5 Mg Tab (Immediate Release)) 5 mg PO Q4H PRN PRN Reason: Pain Stop: 06/07/20 17:17 Last Admin: 05/26/20 10:36 Dose: 5 mg Documented by: [id number] Admin: 05/24/20 23:32 Dose: 5 mg Documented by: [id number] Pantoprazole Sodium (Pantoprazole 40 Mg Tab) 40 mg PO DAILY [facility] Stop: 06/24/20 08:59 Last Admin: 05/26/20 08:29 Dose: 40 mg Documented by: [id number] Admin: 05/25/20 07:54 Dose: 40 mg Documented by: [id number] Polyethylene Glycol (Polyethylene (Miralax) 17 Gm Pack) 17 gm PO DAILY [facility] Stop: 06/24/20 12:44 Last Admin: 05/26/20 08:53 Dose: 17 gm Documented by: [id number] Admin: 05/25/20 12:24 Dose: 17 gm Documented by: [id number] Umeclidinium/Vilanterol (Umeclidinium/Vilanterol 62.5/25mcg 7 Puffs/Inhaler) 1 puffs INH DAILY [facility] Stop: 06/24/20 08:59 Last Admin: 05/26/20 08:54 Dose: 1 puffs Documented by: [id number] Admin: 05/25/20 12:31 Dose: 1 puffs Documented by: [id number] Vitamin D (Cholecalciferol 1,000 Units 25 Mcg Tab) 1,000 units PO QAM [facility] Stop: 06/24/20 13:14 Last Admin: 05/26/20 08:30 Dose: 1,000 units Documented by: [id number] Admin: 05/25/20 14:25 Dose: 1,000 units Documented by: [id number] Discontinued Medications Azithromycin (Azithromycin 250 Mg Tab) 500 mg PO NOW ONE Stop: 05/26/20 15:59 Last Admin: 05/26/20 17:15 Dose: 500 mg Documented by: [id number] Calcitonin Dawson (Calcitonin Dawson Na 200 Iu/Ac 3.7 Ml Btl) 1 sprays NA 2014 ONE Stop: 05/24/20 20:16 Last Admin: 05/24/20 20:33 Dose: 1 sprays Documented by: [id number] Sodium Chloride (Nss 1000ml) 1,000 mls @ 75 mls/hr IV .[id number] [facility] Stop: 05/25/20 01:34 Last Infusion: 05/25/20 08:05 Dose: 0 mls/hr Documented by: [id number] Admin: 05/24/20 12:38 Dose: 75 mls/hr Documented by: [id number] Ioversol (Ioversol 100ml) 94 ml IV ONCE ONE Stop: 05/25/20 10:30 Last Admin: 05/25/20 10:30 Dose: 94 ml Documented by: [id number] Morphine Sulfate (Morphine Sulfate 2 Mg/Ml Carp) 2 mg IV NOW STA Stop: 05/24/20 12:11 Last Admin: 05/24/20 12:37 Dose: 2 mg Documented by: [id number] Ondansetron HCl (Ondansetron Inj 2 Mg/Ml 2 Ml Vial) 4 mg IV NOW STA Stop: 05/24/20 12:11 Last Admin: 05/24/20 12:37 Dose: 4 mg Documented by: [id number] Tramadol HCl (Tramadol Hcl 50 Mg Tablet) 50 - 100 mg PO QID PRN PRN Reason: pain Stop: 06/23/20 17:17 Last Admin: 05/26/20 05:21 Dose: 50 mg Documented by: [id number] Admin: 05/25/20 22:35 Dose: 50 mg Documented by: [id number] Admin: 05/25/20 08:09 Dose: 50 mg Documented by: [id number] Admin: 05/24/20 20:40 Dose: 100 mg Documented by: [id number] Discharge Plan Visit Data Chief Complaint: Fall Stated Complaint: FELL/INJURED HER BACK T-11 COMPRESSION FRACTURE ED Provider: Jess Mcmahan Discharge Problem: Compression fracture of thoracic vertebra, Intractable back pain Patient Disposition: Admitted As Inpatient Discharge Instructions Interventions: ED Discharge Assessment Last Done: 05/24/20 17:04 Discharge Problem: Compression fracture of thoracic vertebra Qualifiers: Encounter type: subsequent encounter Thoracic vertebra fracture level: T11 Fracture healing: with routine healing Qualified Code(s): S22.080D - Wedge compression fracture of T11-T12 vertebra, subsequent encounter for fracture with routine healing
[2020-05-24] MEDS ORDERED: CALCITONIN SALMON NA 200 IU/AC 3.7 ML BTL ONE (20:15)
[2020-05-24] MEDS: METOPROLOL TARTRATE 25 MG TAB PO SCH (20:33)
[2020-05-24] MEDS: traMADol HCL 50 MG TABLET PO PRN (20:40)
[2020-05-24] MEDS: oxyCODONE HCL IR 5 MG TAB (IMMEDIATE RELEASE) PO PRN (23:32)
[2020-05-25] MEDS: METOPROLOL TARTRATE 25 MG TAB PO SCH ×2 (07:53→21:25)
[2020-05-25] MEDS: amLODIPine BESYLATE 5 MG TAB PO SCH (07:54)
[2020-05-25] MEDS: CALCIUM 600MG + VIT D 400 IU TAB PO SCH (07:54)
[2020-05-25] MEDS: FUROSEMIDE 20 MG TAB PO SCH (07:54)
[2020-05-25] MEDS: PANTOprazole 40 MG TAB PO SCH (07:54)
[2020-05-25] MEDS: LEVOTHYROXINE SODIUM 50 MCG TABLET PO SCH (07:55)
[2020-05-25] MEDS: FOLIC ACID 1 MG TAB PO SCH (07:56)
[2020-05-25] MEDS: CALCITONIN SALMON NA 200 IU/AC 3.7 ML BTL SCH (07:59)
[2020-05-25] MEDS: FLUTICASONE FUROATE 100MCG 14 PUFFS/INHALER INH SCH ×2 (08:00→12:31)
[2020-05-25] MEDS: UMECLIDINIUM/VILANTEROL 62.5/25MCG 7 PUFFS/INHALER INH SCH ×2 (08:00→12:31)
[2020-05-25] MEDS: traMADol HCL 50 MG TABLET PO PRN ×2 (08:09→22:35)
--- NOTE | 2020-05-25 10:23 | Electrocardiogram Report ---
Test Reason : Blood Pressure : / mmHG Vent. Rate : 076 BPM Atrial Rate : 071 BPM P-R Int : 000 ms QRS Dur : 070 ms QT Int : 372 ms P-R-T Axes : 000 -10 070 degrees QTc Int : 418 ms Poor data quality, interpretation may be adversely affected Atrial fibrillation 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-2002) Abnormal ECG When compared with ECG of 18-APR-2020 15:20, ST now depressed in Lateral leads T wave inversion now evident in Lateral leads Confirmed by Garrison Singh ([id number]) on 05/25/2020 10:23:18 AM Referred By: REFERRED SELF Confirmed By:Brandin Singh
[2020-05-25] MEDS ORDERED: IOVERSOL 100ml IV ONE (10:29)
[2020-05-25 11:02] LABS: Appearance Urine Clear (Clear); Bilirubin Urine Negative (Negative); Blood Urine Negative (Negative); Color Urine Yellow; Glucose Urine UA Negative (Negative); Ketones Urine Negative (Negative); Leukocyte Esterase Urine Negative (Negative); Nitrite Urine Negative (Negative); Protein Urine Negative (Negative); Specific Gravity Urine 1.023 (1.000-1.030); Urobilinogen Urine Negative (Negative)
--- NOTE | 2020-05-25 11:26 | Hospitalist Progress Note ---
Date of Service May 25, 2020 Assessment & Plan (1) Osteoporotic compression fracture of spine: Mrs. Adhikari is an 89 year old female with a history of Hypertension, Dyslipidemia, Hypothyroidism, COPD/Emphysema, Rheumatoid Arthritis, Osteoporosis, Non-Hodgkin's Lymphoma, Colonic Polyp, prior GI Bleed x 3 (while on anticoagulation), Sleep Apnea, Permanent Atrial Fibrillation, Severe Tricuspid Regurgitation, Right Sided Heart Failure, and a Hypermetabolic Right Pulmonary Nodule (she was scheduled for a bronchoscopy and biopsy today but that was cancelled) -- who presents today with Intractable Back Pain, T-11 Compression Fracture, after sustaining a fall on the morning of 05/21/2020. She was in her usual state of health that morning and as she was sitting down on a barstool to eat breakfast, she slid off the back of her stool and landed flat on her back. She had the onset of immediate severe lower thoracic spine pain and low back pain. She has been unable to walk, stand, bend, or perform her usual activities of daily living since this injury. She has not been eating because she does not feel hungry, she's in too much pain. Patient denies any numbness, tingling, or weakness in her legs or lower abdomen. She denies any urinary or fecal incontinence. She denies any injury to her head or other body parts with this fall. Patient's daughter is making arrangements for a Rehabilitation Facility in the [facility], and they are hopeful that her mother can transferred there as early as Friday05/26/2020. Continue pain control with Tylenol, oxycodone MRI spine with T11 compression fracture --> Also noted lesion in body of T3 with rec for f/u CT Chest (patient also with pulmonary nodules and was to have Bronch with Dr. Watkins 2 days ago but was unable to make it due to fall/pain) Dr Flowers consulted -- has not yet seen patient but already on OR for tomorrow possibly. Patient agreeable to surgery if needed but would like to discuss with Dr. Flowers first. --> Possible OR tomorrow for kyphoplasty --> Will make NPO after midnight and place on IVF Orthotics consulted for brace Patient denied need for lidocaine patch or heating pad at this time PT/OT consulted ordered by myself for today -- will need re-eval after surgery if that is the route to proceed Rehab in [place] later this week with daughter if possible CT Chest pending --> Possible consult pulmonary pending results for bronch while inpatient as she will be transferred away to [place] for rehab planned CXR without acute infectious process. EKG with afib, some ST depression in lateral leads with T wave inversion in lateral leads. Will add troponin to AM labs. Previous ECHO 04/19/20 with normal LV systolic function, EF 60-65%, no wma, mild LVH, RV mildly dilated. No hemodynamically significant valvular , mild MR, mod-severe tricuspid regurgitation. RVSP elevated at 30-40mmHg. --> will also order overnight sleep study Urine without evidence of infection Will consult cardiology for clearance in case NPO after midnight Monitor labs on AM (2) Right middle lobe pulmonary nodule: also with COPD (continue inhalers) suspected malignancy. -- Bronchoscopy and biopsy was scheduled with Dr. Watkins 2 days ago, but patient cancelled due to severe back pain. CT Chest pending as above -- Consider getting [facility] Pulmonology involved for possible bronchoscopy/biopsy pending results (3) Abnormal positron emission tomography (PET) scan: -- As outlined under pulmonary nodule. -- Patient with a history of NHL and skin cancers. (4) Atrial fibrillation: permanent Atrial Fibrillation. HR is controlled Continue Metoprolol Tartrate 75 mg b.i.d.. Not candidate for anticoagulation -- h/o GIB x 3 on anticoagulation. Continue to monitor (5) Hypertension: BP stable, 152/77 Continue metoprolol 75mg BID, amlodipine 10mg daily (6) Ataxic gait: Seen by Neurology recently -- planning for outpatient EMG testing B12/folate wnl. Vitamin D low at 23 -- will place on supplementation CT Head previously without acute CVA Mar 2020 (7) Hypothyroidism: TSH wnl 2.870 Continue levothyroxine (8) Non-Hodgkin's lymphoma: Hx of as well as skin ca not on any treatment see above Rheumatoid Arthritis Stable, on methotrexate VIt D deficiency Low at 23 -- placed on replacement and would continue at discharge DVT Prophylaxis SCDs, shania hose chemoprophylaxis held for possible OR tomorrow Dispo: NPO after midnight for OR Admission and Anticipated Discharge Date Admission Date: May 24, 2020 Subjective Patient evaulated this morning. Tolerated diet this morning with eggs/cheese and beverage without difficulty although later this morning having more nausea. States pain present and significant but controlled currently and not needing anything for pain or heating pad at this time. She notes prior need for bronch with Dr. Watkins in [place] but had a fall and was unable to complete this. Obtaining CT Chest. Discussed fracture and consulting Dr. Flowers to see if surgical intervention warranted vs conservative treatment. She is open to hearing options but states she just wants to make sure the time she has left on this Earth is the best quality she can have. Discussed already on OR but will see what has to say prior to proceeding. No fever, chills, chest pain, shortness of breath. Feels bloated but hasn't moved her bowels in 2 days. Discussed adding bowel regimen as constipation can worsen this pain. Not passing gas per her account but has active bowel sounds and believes she needs to get up and moving around to have a bowel movement. States year is 2020, month is but stated quickly after that "no that's not right, it's almost May" and that president is Christopher. She does have episodes of repeating herself and slightly whifty, although is on pain medications. Plans for rehab in [place] closer to her daughter, who is staying with her locally for the time being. Review of Systems Review of Systems: All systems reviewed & are unremarkable except as noted in HPI & below Physical Exam Constitutional: WD/WN, vitals as above no acute distress and + uncomfortable (mildly uncomfortable with movement) Eyes: normal visual aguayo by confrontation and + anicteric sclerae ENMT: mmm Neck: normal visual inspection and trachea midline Respiratory: normal respiratory effort, lungs clear to auscultation Auscultation: + diminished lung sounds (throughout) and + crackles (bibasilar); no wheezes Cardiovascular: Rate/Rhythm: + irregularly irregular Heart Sounds: no murmur Vessels: no JVD Extremities: no edema Gastrointestinal (Abdomen): Inspection/Auscultation: normal bowel sounds; abdomen not distended Percussion/Palpation: abdomen soft; abdomen nontender Musculoskeletal: Head/Neck/Chest: normocephalic and head atraumatic Tender to palpation over T-11, spasm and tightness in the thoracic and paralumbar musculature. Multiple joint deformities of finger joints consistent with RA. Skin: warm ,dry Neurologic: moves all extremities and awake; not confused Speech / Cognition: normal speech Psychiatric: Orientation: alert and oriented x 3 (intermittent confusion/repeating herself) Genitourinary: no ibarra Lymphatic: no cervical or axillary lymphadenopathy Results & Data Results & Data ([facility]) Vital Signs (Past 12 Hours) Vital Signs Temp Pulse Resp BP Pulse Ox 05/25/20 07:21 91 05/25/20 07:20 36.6 C 89 16 152/77 H 84 L 05/25/20 05:03 90 05/25/20 03:00 91 05/25/20 02:25 36.4 C L 81 24 148/86 H 89 L 05/25/20 02:20 172/104 H Laboratory Results 05/25/20 05/24/20 05/24/20 Range/Units 10:45 Unknown Unknown WBC 8.57 (4.8-10.8) K/uL RBC 4.14 L (4.2-5.4) M/uL Hgb 13.0 (12.0-16.0) g/dL Hct 39.3 (37-47) % MCV 94.9 (80-100) fL MCH 31.4 (25-34) pg MCHC 33.1 (32-36) g/dL RDW Std Deviation 49.9 H (36.4-46.3) fL RDW Coeff of Kandy 14.8 H (11.5-14.5) % Plt Count 267 (130-400) K/uL MPV 9.5 (7.4-10.4) fL Immature Gran % (Auto) 0.4 % Neut % (Auto) 83.0 % Lymph % (Auto) 8.4 % [place] % (Auto) 7.5 % Eos % (Auto) 0.5 % Baso % (Auto) 0.2 % Neut # (Auto) 7.12 H (1.4-6.5) K/uL Lymph # (Auto) 0.72 L (1.2-3.4) K/uL [place] # (Auto) 0.64 H (0.11-0.59) K/uL Eos # (Auto) 0.04 (0-0.5) K/uL Baso # (Auto) 0.02 (0-0.2) K/uL Immature Gran # (Auto) 0.03 H (0.00-0.02) K/uL Sodium 141 (136-145) mmol/L Potassium 3.5 (3.5-5.1) mmol/L Chloride 107 (98-107) mmol/L Carbon Dioxide 25 (21-32) mmol/L Anion Gap 9.0 (3-11) BUN 26 H (7-18) mg/dl Creatinine 1.07 (0.6-1.2) mg/dl Est Cr Clr Drug Dosing 31.4 ml/min Est GFR ( Amer) 53.7 Est GFR (Non-Af Amer) 46.3 BUN/Creatinine Ratio 24.2 H (10-20) Glucose 112 H (70-99) mg/dl Calcium 9.8 (8.5-10.1) mg/dl Magnesium 2.4 (1.8-2.4) mg/dl Total Bilirubin 0.5 (0.2-1) mg/dl AST 18 (15-37) U/L ALT 19 (12-78) U/L Alkaline Phosphatase 92 (45-117) U/L Total Protein 7.8 (6.4-8.2) gm/dl Albumin 3.9 (3.4-5.0) gm/dl Globulin 3.9 (2.5-4.0) gm/dl Albumin/Globulin Ratio 1.0 (0.9-2) TSH 2.870 (0.300-4.500) uIu/ml Urine Color Yellow Urine Appearance Clear (Clear) Urine pH 5.0 (4.5-7.5) Ur Specific [place] 1.023 (1.000-1.030) Urine Protein Negative (Negative) Urine Glucose (UA) Negative (Negative) Urine Ketones Negative (Negative) Urine Blood Negative (Negative) Urine Nitrite Negative (Negative) Urine Bilirubin Negative (Negative) Urine Urobilinogen Negative (Negative) Ur Leukocyte Esterase Negative (Negative) COVID-19 Eval Order SARS-CoV-2, RNA, NAAT (NEGATIVE) 05/24/20 05/24/20 Range/Units 14:05 14:05 WBC (4.8-10.8) K/uL RBC (4.2-5.4) M/uL Hgb (12.0-16.0) g/dL Hct (37-47) % MCV (80-100) fL MCH (25-34) pg MCHC (32-36) g/dL RDW Std Deviation (36.4-46.3) fL RDW Coeff of Kandy (11.5-14.5) % Plt Count (130-400) K/uL MPV (7.4-10.4) fL Immature Gran % (Auto) % Neut % (Auto) % Lymph % (Auto) % [place] % (Auto) % Eos % (Auto) % Baso % (Auto) % Neut # (Auto) (1.4-6.5) K/uL Lymph # (Auto) (1.2-3.4) K/uL [place] # (Auto) (0.11-0.59) K/uL Eos # (Auto) (0-0.5) K/uL Baso # (Auto) (0-0.2) K/uL Immature Gran # (Auto) (0.00-0.02) K/uL Sodium (136-145) mmol/L Potassium (3.5-5.1) mmol/L Chloride (98-107) mmol/L Carbon Dioxide (21-32) mmol/L Anion Gap (3-11) BUN (7-18) mg/dl Creatinine (0.6-1.2) mg/dl Est Cr Clr Drug Dosing ml/min Est GFR ( Amer) Est GFR (Non-Af Amer) BUN/Creatinine Ratio (10-20) Glucose (70-99) mg/dl Calcium (8.5-10.1) mg/dl Magnesium (1.8-2.4) mg/dl Total Bilirubin (0.2-1) mg/dl AST (15-37) U/L ALT (12-78) U/L Alkaline Phosphatase (45-117) U/L Total Protein (6.4-8.2) gm/dl Albumin (3.4-5.0) gm/dl Globulin (2.5-4.0) gm/dl Albumin/Globulin Ratio (0.9-2) TSH (0.300-4.500) uIu/ml Urine Color Urine Appearance (Clear) Urine pH (4.5-7.5) Ur Specific [place] (1.000-1.030) Urine Protein (Negative) Urine Glucose (UA) (Negative) Urine Ketones (Negative) Urine Blood (Negative) Urine Nitrite (Negative) Urine Bilirubin (Negative) Urine Urobilinogen (Negative) Ur Leukocyte Esterase (Negative) COVID-19 Eval Order Covid19 IDNow [facility] SARS-CoV-2, RNA, NAAT NEGATIVE (NEGATIVE) Diagnostic Findings MRI OF THE THORACIC SPINE WITHOUT IV CONTRAST CLINICAL HISTORY: Intractable back pain. Recent fall. Compression fracture of T11. COMPARISON STUDY: PET/CT dated 03/01/2016. TECHNIQUE: MRI of the thoracic spine is performed utilizing various T1 and T2- weighted sequences in the axial and sagittal planes. IV contrast was not administered for this examination. FINDINGS: There is an acute compression fracture of T11 with mild to moderate loss of height and associated marrow edema. Fragments are retropulsed by up to 3 mm. This effaces the ventral subarachnoid space. There are mild chronic superior endplate compression deformity is of T2, T3, T6, T7, and T8 there is a T1 hypointense, T2 hyperintense lesion in the T3 vertebral body which measures up to 1.7 cm. No bony lesion was seen at this site on 03/01/2016 PET/CT. No additional bony lesions are clearly identified. A small hemangioma is incidentally noted in the body of T8. The transverse and spinous processes appear intact. Small anterior osteophytes are seen throughout and there is mild hyperlordosis. Degenerative disc desiccation and mild loss of height is seen throughout the thoracic spine. There is no large disc herniation. There is no evidence of high-grade neural foraminal stenosis throughout the thoracic spine. The thoracic spinal cord is normal in morphology and signal intensity. The conus medullaris terminates at the level of L1. The paraspinous soft tissues are normal as visualized. The lung parenchyma is grossly unremarkable but not well evaluated by MRI. A 1.4 cm cyst is seen in the partially imaged left kidney. Degenerative endplate change and endplate edema seen at L1-L2 and L2-L3. IMPRESSION: 1. There is an acute compression fracture of T11 with mild to moderate loss of height and minimally retropulsed fragments. 2. Additional mild chronic compression deformities as above. 3. There is an indeterminant lesion in the body of T3. Although this could potentially represent an atypical hemangioma, this was not clearly seen on 12/16/2015 PET examination and the signal characteristics are concerning for a metastasis. Correlation with a chest CT is recommended for further assessment. 4. Additional findings as above. MRI OF LUMBAR SPINE WITHOUT IV CONTRAST CLINICAL HISTORY: Recent fall. Intractable back pain. COMPARISON STUDY: No priors. TECHNIQUE: MRI of the lumbar spine is performed utilizing various T1 and T2- weighted sequences in the axial and sagittal planes. IV contrast was not a dministered for this examination. FINDINGS: Lumbar spine: Marrow signal intensity is heterogeneous. Vertebral body height is maintained throughout the lumbar spine. There is minimal retrolisthesis at L1-L2 and L2-L3. Alignment is otherwise preserved. There is an acute compression fracture of T11 with [id number] loss of height, marrow edema, and minimally retropulsed fragments. See report of thoracic spine MRI performed concurrently for detailed thoracic spinal findings. Small anterior and lateral marginal osteophytes are seen throughout the lumbar spine. The transverse and spinous processes appear intact. There is no evidence of spondylolysis. Chronic degenerative endplate changes seen at all lumbar levels. Mild endplate edema is seen at L1-L2 and L2-L3. No destructive bony lesion is clearly identified. Intervertebral discs: Degenerative disc desiccation and loss of height is seen throughout the lumbar spine. Loss of height is moderate to severe at L1-L2, L2- L3, and L5-S1. Spinal cord: The visualized spinal cord is normal in morphology and signal intensity. The conus medullaris terminates at the L1-L2 interspace. The nerve roots of the cauda equina are normal in morphology. L1-L2: There is a posterior disc osteophyte complex. The central canal is clear. Mild bilateral subarticular stenosis is noted, left greater than right. In conjunction with facet arthropathy, there is moderate right and mild left neural foraminal stenosis. L2-L3: There is broad-based posterior disc bulge. No significant acquired compromise of the central canal is identified. Disc bulge eccentric to the right causes severe right-sided subarticular stenosis and impinges on the exiting right L3 nerve root. This also abuts the transiting right-sided nerve roots. In conjunction with facet arthropathy, there is mild to moderate bilateral neural foraminal stenosis, left greater than right. L3-L4: There is minimal posterior disc bulge. The central canal is clear. There is mild bilateral subarticular stenosis. In conjunction with facet arthropathy, there is mild bilateral neural foraminal narrowing. L4-L5: There is minimal posterior disc bulge. The central canal is clear. There is bilateral subarticular stenosis, and the disc bulge abuts the transiting nerve roots. In conjunction with facet arthropathy, there is mild bilateral neural foraminal stenosis. L5-S1: There is a small posterior disc bulge with annular fissure. No acquired compromise of the central canal is identified. Facet arthropathy contributes to mild to moderate bilateral neural foraminal stenosis. Sacrum: The visualized sacrum is normal in morphology and signal intensity. Soft tissues: There is fatty atrophy of the paraspinous musculature. A 1.4 cm cyst is noted in the left kidney. No retroperitoneal lymphadenopathy is seen. IMPRESSION: 1. No acute fracture is seen involving the lumbar spine. 2. There is an acute compression fracture of T11. See MRI of the thoracic spine performed concurrently for detailed thoracic spinal findings. 3. Multilevel lumbosacral spondylosis as above. See discussion for detailed level by level analysis. 4. Degenerative disc disease with associated endplate edema as above. PG Care Time/CCT Total # of Minutes Spent Total Time Spent with Patient: Total time spent is greater than 50% in coordination of care (as documented) at patient's floor/unit and/or counseling patient: Coding Level of Care Code 55453 Subseq Hosp Care Lvl 3 Diagnoses Osteoporotic compression fracture of spine M80.88XA Right middle lobe pulmonary nodule R91.1 Abnormal positron emission tomography (PET) scan R94.8 Atrial fibrillation I48.91 Atrial fibrillation type: unspecified Hypertension I10 Ataxic gait R26.0 Hypothyroidism E03.9 Non-Hodgkin's lymphoma C85.90 (1) Atrial fibrillation Atrial fibrillation type: unspecified Qualified Code(s): I48.91 - Unspecified atrial fibrillation
[2020-05-25 12:22] LABS: Basophils # (auto) 0.01 K/uL (0-0.2); Basophils % (auto) 0.1 %; Eosinophils # (auto) 0.13 K/uL (0-0.5); Eosinophils % (auto) 1.4 %; Hematocrit (blood only) 34.8 % (37-47); Hemoglobin 11.3 g/dL (12.0-16.0); Immature Granulocytes # (auto) 0.04 K/uL (0.00-0.02); Immature Granulocytes % (auto) 0.4 %; Lymphocytes % (auto) 10.6 %; Mean Corpuscular Hgb Conc 32.5 g/dL (32-36); Mean Corpuscular Volume 95.3 fL (80-100); Mean Platelet Volume 9.2 fL (7.4-10.4); Monocytes # (auto) 0.75 K/uL (0.11-0.59); Monocytes % (auto) 7.9 %; Neutrophils # (auto) 7.54 K/uL (1.4-6.5); Neutrophils % (auto) 79.6 %; Platelet Count 266 K/uL (130-400); RDW Coefficient of Variation 14.9 % (11.5-14.5); RDW Standard Deviation 51.2 fL (36.4-46.3); Red Blood Count 3.65 M/uL (4.2-5.4); White Blood Count 9.47 K/uL (4.8-10.8)
[2020-05-25] MEDS: DOCUSATE SODIUM 100 MG CAP PO SCH ×2 (12:24→21:25)
[2020-05-25] MEDS: POLYETHYLENE (MIRALAX) 17 GM PACK PO SCH (12:24)
[2020-05-25 13:17] LABS: Albumin Globulin Ratio 0.9 (0.9-2); Albumin Level 3.2 gm/dl (3.4-5.0); BUN Creatinine Ratio 23.2 (10-20); Bilirubin,Total 0.4 mg/dl (0.2-1); Calcium 9.1 mg/dl (8.5-10.1); Creatinine Clr Calc Pharmacy 44.2 ml/min; Est GFR (African American) 81.2; Globulin 3.7 gm/dl (2.5-4.0); Potassium 3.8 mmol/L (3.5-5.1); Total Protein 6.9 gm/dl (6.4-8.2)
--- NOTE | 2020-05-25 13:39 | CT Scan Report ---
CHEST CT WITH CONTRAST CT DOSE: 174.12 mGy.cm HISTORY: Abnormal chest x-ray. Abnormal thoracic spine. Evaluate T3 lesion. TECHNIQUE: Multiaxial CT images of the chest were performed following the intravenous administration of contrast. A dose lowering technique was utilized adhering to the principles of ALARA. COMPARISON: Thoracic spine MRI 05/24/2020. FINDINGS: Acute T11 moderate compression fracture is again noted. There is 3 mm of retropulsion of th e posterior cortex resulting in mild central canal narrowing at this level. This remains unchanged. A dditional mild compression deformities within the thoracic spine are also unchanged. There is an inde terminate 1.3 cm lesion within the T3 vertebral body. This favors a hemangioma. No additional osseous lesions identified. There is an irregular 2.4 x 1.6 cm nodule within the lateral segment of the righ t middle lobe. This is concerning for a primary bronchogenic malignancy. There are trace bilateral pl eural effusions. Mild biapical pleural-parenchymal scarring is noted. There are 2 subpleural nodules within the left lung apex measuring 5 mm. These are best seen on images 37 and 45. There is a 4 mm gamez bpleural nodule within the right lung apex on image 41. Emphysema. Faint groundglass density within t he proximal faint groundglass density within the central aspect of the right upper lobe. A few bibasi lar linear densities consistent with subsegmental atelectasis. The central airways are patent. Limite d views of the upper abdomen demonstrate a normal liver, spleen, and adrenal glands. Normal esophagus . No mediastinal hilar lymphadenopathy. The heart is mildly enlarged. No pericardial effusion. Normal caliber thoracic aorta containing mild calcified plaque. The main pulmonary arteries are patent. IMPRESSION: 1. A 2.4 x 1.6 cm irregular nodule within the right middle lobe. This is concerning for a primary bro nchogenic malignancy. Pulmonary consultation with bronchoscopy recommended for further evaluation. 2. A 1.3 lucent lesion with thickened trabecula within the T3 vertebral body. This is indeterminate b ut favors a hemangioma. This bears watching future examinations. No additional suspicious osseous les ions identified. 3. An acute T11 compression fracture is again noted. Additional mild compression deformities within t he thoracic spine remain unchanged. 4. Indeterminate subcentimeter subpleural biapical nodules as described above. These bear watching fu ture examinations. 5. Cardiomegaly. 6. Trace bilateral pleural effusions. 7. These findings were called/faxed to the referring physician following dictation. ACT 112: Positive. There are findings on this exam that require communication between the performing entity and the patient following Patient Test Result Information Act ([place] Act 112) guidelines. Electronically signed by: Benigno Figueroa M.D. 05/25/2020 1:37 PM
[2020-05-25] MEDS: CHOLECALCIFEROL 1,000 UNITS 25 MCG TAB PO SCH (14:25)
--- NOTE | 2020-05-25 15:16 | Cardiology Consultation ---
Date of Consultation May 25, 2020 Assessment & Plan (1) Preoperative cardiovascular examination: The patient does not appear to be high risk for the intended surgery. She does not have any cardiac symptoms suggestive of unstable coronary process, she does not have severe valvular heart disease (with the exception of some tricuspid regurgitation), she has preserved LV systolic function and no evidence of decompensated heart failure, she is known to have permanent atrial fibrillation but is not symptomatic and has controlled ventricular rates. She does have an element of dyspnea on exertion which is likely related to age and deconditioning although occult coronary disease cannot definitively be excluded. While she may have an element of significant tricuspid regurgitation and mildly elevated pulmonary pressures, she does not have clinical signs of right heart failure. I do not think any additional risk stratification is necessary should she elect to undergo the surgery suggested in her record. She should be maintained on her beta-franko in the perioperative period. As with all patients attention should be paid to avoiding significant hypotension, hypertension, severe anemia, hypoxia and tachycardia. (2) Atrial fibrillation: No symptoms. Controlled ventricular rates on beta-blockade. She is not on systemic anticoagulation due to history of gastrointestinal hemorrhage. History of Present Illness Reason for Consultation: Preoperative evaluation, atrial fibrillation Requesting Physician: Darvin Attending Physician: Ildefonso Cornell MD History of Present Illness The patient is an 89-year-old woman who recently suffered a mechanical injury to her back resulting in a thoracic spine fracture. She is contemplating operative intervention and I was asked to provide an opinion regarding her perioperative cardiovascular risk. Patient states that she is a sedentary individual but is able to perform routine housework such as making the bed and cleaning her residence. She does have an element of dyspnea with activity at times. She generally does not go for long walks or walk very rapidly due to dyspnea. She did not endorse symptoms of chest pain either at rest or with activity. She has not had significant dizziness or lightheadedness. She has not suffered syncope. She does not have orthopnea. She has not noticed any recent swelling in her lower extremities. She has not been aware of any palpitations but is aware of a diagnosis of atrial fibrillation. She states she has had this for some time. Allergies Allergy/AdvReac Type Severity Reaction Status Date / Time alendronate sodium Allergy Unknown ON [facility] MED Verified 05/24/20 09:53 LIST Home Medications Medication Instructions Recorded Confirmed Type albuterol sulfate 90 mcg/actuation 2 puffs INHALATION Q4H PRN #3 ea 11/05/18 05/24/20 Rx breath activated powder inhaler ipratropium 0.5 mg-albuterol 3 mg 3 ml INHALATION Q4H PRN #180 ml 11/05/18 05/24/20 Rx (2.5 mg base)/3 mL nebulization soln acetaminophen 500 mg tablet 500 mg PO Q6H PRN tab 01/16/19 05/24/20 History calcium carbonate-vitamin D3 600 1 tab PO DAILY #90 tab 01/19/19 05/24/20 Rx mg(1,500 mg)-400 unit chewable tablet amlodipine 10 mg tablet 10 mg PO DAILY #90 tab 07/05/19 05/24/20 Rx levothyroxine 50 mcg tablet 50 mcg PO DAILY #90 tab 03/31/20 05/24/20 Rx methotrexate sodium 2.5 mg tablet 20 mg PO WEEKLY #90 tab 03/31/20 05/24/20 Rx folic acid 5 mg PO DAILY 04/18/20 05/24/20 History furosemide 20 mg tablet 20 mg PO DAILY #90 tab 04/26/20 05/24/20 Rx omeprazole 40 mg capsule,delayed 40 mg PO DAILY cap 04/26/20 05/24/20 History release metoprolol tartrate 50 mg tablet 75 mg PO BID #270 tab 05/17/20 05/24/20 Rx calcitonin (salmon) 200 1 spray INTRANASAL (ALT) DAILY 05/24/20 05/24/20 Rx unit/actuation nasal spray #3.7 ml [id number] 1 puffs INHALATION DAILY 05/24/20 05/24/20 History [Trelegy Ellipta] ketoconazole 1 applic TOPICAL BID PRN 05/24/20 05/24/20 History tramadol 50 mg tablet See Rx Instructions PO QID PRN #40 05/24/20 05/24/20 Rx tab Patient History Medical History Abnormal positron emission tomography (PET) scan Abnormal weight loss Acute pain of left hip Anemia Anemia Anxiety Atrial fibrillation Blood in stool COPD, moderate Dysphagia Effusion of right knee Gait apraxia Gastric erosion with bleeding Gastritis Generalized osteoarthrosis, unspecified site High risk medication use Hyperactivity of bladder Hypercholesterolemia Hypertension Hypothyroidism Immunization, pneumococcus and influenza Inguinal lymphadenopathy Iron deficiency anemia Leg edema Lymphadenopathy Macular degeneration Mammogram abnormal New onset a-fib Non-Hodgkin's lymphoma Obstructive sleep apnea Osteoporosis Osteoporotic compression fracture of spine Pleural effusion Pulmonary nodule Rheumatoid arthritis Right middle lobe pulmonary nodule Right-sided heart failure Right-sided heart failure Sessile colonic polyp Urinary incontinence Visit for screening mammogram Surgical History History of cataract surgery History of colonoscopy History of dilation and curettage History of knee replacement History of Mohs micrographic surgery for skin cancer History of tonsillectomy Family History Daughter Multiple sclerosis Mother , age 50 of metastatic cancer Cancer Father , age 64 from a gasoline fire accident No problems noted. 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 No recent constitutional symptoms such as fevers or chills. Back pain significantly improved. Ambulatory with a walker today. Physical Exam Physical Exam: She is alert and oriented x3. Mood affect appear normal. She answered all questions appropriately. HEENT: Sclerae are anicteric. Pupils are equal and reactive to light and accommodation. Extraocular movements were intact. Neuro: Cranial nerves intact Neck: Examination of the submandibular region did not reveal any significant lymphadenopathy. Carotids are palpable bilaterally and free of bruits on auscultation. 1-2 cm jugular venous distension. The thyroid was not enlarged. Lungs: Lungs are clear to auscultation bilaterally. There are no rales wheezes or rhonchi. She has normal respiratory effort without use of accessory muscles. There is normal pulmonary excursion. Cardiac: The rhythm was irregular. S1 and S2 were normal. There are no murmurs on examination. The PMI was not markedly displaced on palpation. Abdomen: The abdomen was soft and nontender. Extremities: Patient has bilateral radial pulses that are equal in intensity. There is no evidence cyanosis or clubbing. There was no evidence of significant peripheral edema bilaterally although she is wearing surgical stockings. Skin: There are no rashes noted on examination today. Results & Data ([facility]) Vital Signs (Past 12 Hours) Vital Signs Temp Pulse Resp BP Pulse Ox 05/25/20 07:21 91 05/25/20 07:20 36.6 C 89 16 152/77 H 84 L 05/25/20 05:03 90 Laboratory Results Abnormal Lab Results 05/25/20 05/25/20 05/25/20 10:45 12:07 12:07 WBC 9.47 RBC 3.65 L Hgb 11.3 L Hct 34.8 L MCV 95.3 MCH 31.0 MCHC 32.5 RDW Std Deviation 51.2 H RDW Coeff of Kandy 14.9 H Plt Count 266 MPV 9.2 Immature Gran % (Auto) 0.4 Neut % (Auto) 79.6 Lymph % (Auto) 10.6 [place] % (Auto) 7.9 Eos % (Auto) 1.4 Baso % (Auto) 0.1 Neut # (Auto) 7.54 H Lymph # (Auto) 1.00 L [place] # (Auto) 0.75 H Eos # (Auto) 0.13 Baso # (Auto) 0.01 Immature Gran # (Auto) 0.04 H Sodium 137 Potassium 3.8 Chloride 104 Carbon Dioxide 27 Anion Gap 6.0 BUN 18 Creatinine 0.76 D Est Cr Clr Drug Dosing 44.2 Est GFR ( Amer) 81.2 Est GFR (Non-Af Amer) 70.0 BUN/Creatinine Ratio 23.2 H Glucose 104 H Calcium 9.1 Total Bilirubin 0.4 AST 21 ALT 22 Alkaline Phosphatase 87 Troponin I Total Protein 6.9 Albumin 3.2 L Globulin 3.7 Albumin/Globulin Ratio 0.9 Urine Color Yellow Urine Appearance Clear Urine pH 5.0 Ur Specific [place] 1.023 Urine Protein Negative Urine Glucose (UA) Negative Urine Ketones Negative Urine Blood Negative Urine Nitrite Negative Urine Bilirubin Negative Urine Urobilinogen Negative Ur Leukocyte Esterase Negative 05/25/20 12:08 WBC RBC Hgb Hct MCV MCH MCHC RDW Std Deviation RDW Coeff of [place] Plt Count MPV Immature Gran % (Auto) Neut % (Auto) Lymph % (Auto) [place] % (Auto) Eos % (Auto) Baso % (Auto) Neut # (Auto) Lymph # (Auto) [place] # (Auto) Eos # (Auto) Baso # (Auto) Immature Gran # (Auto) Sodium Potassium Chloride Carbon Dioxide Anion Gap BUN Creatinine Est Cr Clr Drug Dosing Est GFR ( Amer) Est GFR (Non-Af Amer) BUN/Creatinine Ratio Glucose Calcium Total Bilirubin AST ALT Alkaline Phosphatase Troponin I < 0.015 Total Protein Albumin Globulin Albumin/Globulin Ratio Urine Color Urine Appearance Urine pH Ur Specific [place] Urine Protein Urine Glucose (UA) Urine Ketones Urine Blood Urine Nitrite Urine Bilirubin Urine Urobilinogen Ur Leukocyte Esterase Diagnostic Findings Echocardiogram obtained 04/19/2020: Preserved LV systolic function with ejection fraction of 60 65%. Mild LVH. Mild right ventricular dilation. Mild mitral regurgitation. Moderate to severe tricuspid regurgitation with mildly elevated right ventricular pressures estimated at 30-40 mm of mercury ECG Additional Comments: EKG obtained the time admission revealed atrial fibrillation in a controlled ventricular rate. Nonspecific ST and T-wave changes. Q-waves in the anterior precordial leads concerning for old anterior myocardial infarction. PG Care Time/CCT Total # of Minutes Spent Total Time Spent with Patient: Total time spent is greater than 50% in coordination of care (as documented) at patient's floor/unit and/or counseling patient: Coding Level of Care Code 12982 Initial Inpt Care Lvl 3 Diagnoses Preoperative cardiovascular examination Z01.810 Atrial fibrillation I48.91 Atrial fibrillation type: unspecified (1) Atrial fibrillation Atrial fibrillation type: unspecified Qualified Code(s): I48.91 - Unspecified atrial fibrillation
[2020-05-26] MEDS: traMADol HCL 50 MG TABLET PO PRN (05:21)
[2020-05-26] MEDS: LEVOTHYROXINE SODIUM 50 MCG TABLET PO SCH (05:24)
[2020-05-26 06:37] LABS: Basophils # (auto) 0.05 K/uL (0-0.2); Basophils % (auto) 0.6 %; Eosinophils # (auto) 0.14 K/uL (0-0.5); Eosinophils % (auto) 1.6 %; Hematocrit (blood only) 36.1 % (37-47); Hemoglobin 11.6 g/dL (12.0-16.0); Immature Granulocytes # (auto) 0.05 K/uL (0.00-0.02); Immature Granulocytes % (auto) 0.6 %; Lymphocytes # (auto) 1.08 K/uL (1.2-3.4); Lymphocytes % (auto) 12.3 %; Mean Corpuscular Hemoglobin 30.6 pg (25-34); Mean Corpuscular Hgb Conc 32.1 g/dL (32-36); Mean Corpuscular Volume 95.3 fL (80-100); Mean Platelet Volume 9.4 fL (7.4-10.4); Monocytes # (auto) 1.04 K/uL (0.11-0.59); Monocytes % (auto) 11.8 %; Neutrophils # (auto) 6.43 K/uL (1.4-6.5); Neutrophils % (auto) 73.1 %; Platelet Count 301 K/uL (130-400); RDW Coefficient of Variation 14.9 % (11.5-14.5); RDW Standard Deviation 50.7 fL (36.4-46.3); Red Blood Count 3.79 M/uL (4.2-5.4); White Blood Count 8.79 K/uL (4.8-10.8)
--- NOTE | 2020-05-26 06:44 | Anesthesiology Consultation ---
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 Surgery Operation Date: 05/26/20 11:25 Proposed Procedures p T-11 Kyphoplasty - Vance Flowers DO Height/Weight Height: 5 ft 4 in Weight: 56.4 kg Allergies Allergy/AdvReac Type Severity Reaction Status Date / Time alendronate sodium Allergy Unknown ON [facility] MED Verified 05/24/20 09:53 LIST Medications Home Medications Medication Instructions Recorded Confirmed Last Taken albuterol sulfate 90 mcg/actuation 2 puffs INHALATION Q4H PRN #3 ea 11/05/18 05/24/20 Unknown breath activated powder inhaler ipratropium 0.5 mg-albuterol 3 mg 3 ml INHALATION Q4H PRN #180 ml 11/05/18 05/24/20 Unknown (2.5 mg base)/3 mL nebulization soln acetaminophen 500 mg tablet 500 mg PO Q6H PRN tab 01/16/19 05/24/20 05/23/20 calcium carbonate-vitamin D3 600 1 tab PO DAILY #90 tab 01/19/19 05/24/20 mg(1,500 mg)-400 unit chewable tablet amlodipine 10 mg tablet 10 mg PO DAILY #90 tab 07/05/19 05/24/20 05/23/20 levothyroxine 50 mcg tablet 50 mcg PO DAILY #90 tab 03/31/20 05/24/20 05/23/20 methotrexate sodium 2.5 mg tablet 20 mg PO WEEKLY #90 tab 03/31/20 05/24/20 05/23/20 folic acid 5 mg PO DAILY 04/18/20 05/24/20 05/23/20 furosemide 20 mg tablet 20 mg PO DAILY #90 tab 04/26/20 05/24/20 05/23/20 omeprazole 40 mg capsule,delayed 40 mg PO DAILY cap 04/26/20 05/24/20 Unknown release metoprolol tartrate 50 mg tablet 75 mg PO BID #270 tab 05/17/20 05/24/20 calcitonin (salmon) 200 1 spray INTRANASAL (ALT) DAILY 05/24/20 05/24/20 Unknown unit/actuation nasal spray #3.7 ml [id number] 1 puffs INHALATION DAILY 05/24/20 05/24/20 Unknown [Trelegy Ellipta] ketoconazole 1 applic TOPICAL BID PRN 05/24/20 05/24/20 Unknown tramadol 50 mg tablet See Rx Instructions PO QID PRN #40 05/24/20 05/24/20 Unknown tab Active Medications Generic Name Dose Route Start Last Admin Trade Name Prashant PRN Reason Stop Dose Admin Al Hydrox/Mg Hydrox/Simethicone 30 ml 05/24/20 17:18 05/25/20 11:46 Aluminum/Magnesium Susp 30 Ml Udc PO 06/23/20 17:17 30 ml Q6H PRN Administration Dyspepsia Amlodipine Besylate 10 mg 05/25/20 09:00 05/25/20 07:54 Amlodipine Besylate 5 Mg Tab PO 06/24/20 08:59 10 mg DAILY ELBA Administration Calcitonin [place] 1 sprays 05/25/20 09:00 05/25/20 07:59 Calcitonin [place] Na 200 Iu/Ac 3.7 Ml Btl NA 06/24/20 08:59 1 sprays DAILY ELBA Administration Docusate Sodium 100 mg 05/25/20 12:45 05/25/20 21:25 Docusate Sodium 100 Mg Cap PO 06/24/20 12:44 100 mg BID ELBA Administration Fluticasone Furoate 1 puffs 05/25/20 09:00 05/25/20 12:31 Fluticasone Furoate 100mcg 14 Puffs/Inhaler INH 06/24/20 08:59 1 puffs DAILY ELBA Administration Folic Acid 5 mg 05/25/20 09:00 05/25/20 07:56 Folic Acid 1 Mg Tab PO 06/24/20 08:59 5 mg DAILY ELBA Administration Furosemide 20 mg 05/25/20 09:00 05/25/20 07:54 Furosemide 20 Mg Tab PO 06/24/20 08:59 20 mg DAILY ELBA Administration Levothyroxine Sodium 50 mcg 05/25/20 09:00 05/26/20 05:24 Levothyroxine Sodium 50 Mcg Tablet PO 06/24/20 08:59 50 mcg DAILYBB ELBA Administration Metoprolol Tartrate 75 mg 05/24/20 21:00 05/25/20 21:25 Metoprolol Tartrate 25 Mg Tab PO 06/23/20 20:59 75 mg BID ELBA Administration Multivitamins/Minerals 1 tab 05/25/20 09:00 05/25/20 07:54 Calcium 600mg + Vit D 400 Iu Tab PO 06/24/20 08:59 1 tab DAILY ELBA Administration Ondansetron HCl 4 mg 05/24/20 17:18 05/25/20 12:24 Ondansetron Inj 2 Mg/Ml 2 Ml Vial IV 06/23/20 17:17 4 mg Q6H PRN Administration Nausea Oxycodone HCl 5 mg 05/24/20 17:18 05/24/20 23:32 Oxycodone Hcl Ir 5 Mg Tab (Immediate Release) PO 06/07/20 17:17 5 mg Q4H PRN Administration Pain Pantoprazole Sodium 40 mg 05/25/20 09:00 05/25/20 07:54 Pantoprazole 40 Mg Tab PO 06/24/20 08:59 40 mg DAILY ELBA Administration Polyethylene Glycol 17 gm 05/25/20 12:45 05/25/20 12:24 Polyethylene (Miralax) 17 Gm Pack PO 06/24/20 12:44 17 gm DAILY ELBA Administration Tramadol HCl 50 - 100 mg 05/24/20 17:18 05/26/20 05:21 Tramadol Hcl 50 Mg Tablet PO 06/23/20 17:17 50 mg QID PRN Administration pain Umeclidinium/Vilanterol 1 puffs 05/25/20 09:00 05/25/20 12:31 Umeclidinium/Vilanterol 62.5/25mcg 7 Puffs/Inhaler INH 06/24/20 08:59 1 p uffs DAILY ELBA Administration Vitamin D 1,000 units 05/25/20 13:15 05/25/20 14:25 Cholecalciferol 1,000 Units 25 Mcg Tab PO 06/24/20 13:14 1,000 units QAM ELBA Administration NPO Date Last Intake of Fluids: 05/25/20 Time Last Intake of Fluids: 23:59 Date Last Intake of Solids: 05/25/20 Time Last Intake of Solids: 23:59 Past Medical History Medical History Abnormal positron emission tomography (PET) scan Abnormal weight loss Acute pain of left hip Anemia Anemia Anxiety Atrial fibrillation Blood in stool COPD, moderate Dysphagia Effusion of right knee Gait apraxia Gastric erosion with bleeding Gastritis Generalized osteoarthrosis, unspecified site High risk medication use Hyperactivity of bladder Hypercholesterolemia Hypertension Hypothyroidism Immunization, pneumococcus and influenza Inguinal lymphadenopathy Iron deficiency anemia Leg edema Lymphadenopathy Macular degeneration Mammogram abnormal New onset a-fib Non-Hodgkin's lymphoma Obstructive sleep apnea Osteoporosis Osteoporotic compression fracture of spine Pleural effusion Pulmonary nodule Rheumatoid arthritis Right middle lobe pulmonary nodule Right-sided heart failure Right-sided heart failure Sessile colonic polyp Urinary incontinence Visit for screening mammogram Past Family History Family History Daughter Multiple sclerosis Mother , age 50 of metastatic cancer Cancer Father , age 64 from a gasoline fire accident No problems noted. Other No pertinent family history Past Surgical History Surgical History History of cataract surgery History of colonoscopy History of dilation and curettage History of knee replacement History of Mohs micrographic surgery for skin cancer History of tonsillectomy Social History Smoking Status: Former smoker Hx Alcohol Use: No Hx Substance Use: No Physical Exam Vital Signs Last Vital Signs Temp 98.2 F 05/25/20 23:22 Pulse 79 05/26/20 03:33 Resp 16 05/25/20 23:22 BP 149/76 H 05/25/20 23:22 Pulse Ox 90 05/26/20 06:10 Testing Laboratory Results 05/26/20 05:37 Urine Color Yellow 05/25/20 10:45 Urine Appearance Clear (Clear) 05/25/20 10:45 Urine pH 5.0 (4.5-7.5) 05/25/20 10:45 Ur Specific [place] 1.023 (1.000-1.030) 05/25/20 10:45 Urine Protein Negative (Negative) 05/25/20 10:45 Urine Glucose (UA) Negative (Negative) 05/25/20 10:45 Urine Ketones Negative (Negative) 05/25/20 10:45 Urine Nitrite Negative (Negative) 05/25/20 10:45 Ur Leukocyte Esterase Negative (Negative) 05/25/20 10:45 Laboratory Tests 04/18/20 04/19/20 05/24/20 15:01 02:20 14:05 PT 10.9 INR 1.0 APTT 21.1 Sodium Potassium Chloride Carbon Dioxide BUN Creatinine Glucose Hemoglobin A1c 6.5 H TSH SARS-CoV-2, RNA, NAAT NEGATIVE 05/24/20 05/25/20 Unknown 12:07 PT INR APTT Sodium 137 Potassium 3.8 Chloride 104 Carbon Dioxide 27 BUN 18 Creatinine 0.76 D Glucose 104 H Hemoglobin A1c TSH 2.870 SARS-CoV-2, RNA, NAAT Electrocardiogram Date: 05/24/20 Atrial fibrillation, rate 76 bpm 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-2002) ST & T wave abnormality, consider lateral ischemia Abnormal ECG When compared with ECG of 18-APR-2020 15:20, ST now depressed in Lateral leads T wave inversion now evident in Lateral leads Confirmed by Garrison Singh ([id number]) on 05/25/2020 10:23:18 AM Echocardiogram Date: 04/19/20 LV systolic function is normal EF = 60-65% LV wall motion is normal Mild concentric LVH RV is mildly dilated Right and left coronary cusps open well, aortic valve noncoronary cusp appears immobilized No hemodynamically significant valvular aortic stenosis Mild MR Mod to severe TR RVSP is elevated at 30-40mmHg Other Testing CT Chest 05/25/20 IMPRESSION: 1. A 2.4 x 1.6 cm irregular nodule within the right middle lobe. This is concerning for a primary bronchogenic malignancy. Pulmonary consultation with bronchoscopy recommended for further evaluation. 2. A 1.3 lucent lesion with thickened trabecula within the T3 vertebral body. This is indeterminate but favors a hemangioma. This bears watching future examinations. No additional suspicious osseous lesions identified. 3. An acute T11 compression fracture is again noted. Additional mild compression deformities within the thoracic spine remain unchanged. 4. Indeterminate subcentimeter subpleural biapical nodules as described above. These bear watching future examinations. 5. Cardiomegaly. 6. Trace bilateral pleural effusions. 7. These findings were called/faxed to the referring physician following dictation.
[2020-05-26 07:04] LABS: Albumin Level 3.3 gm/dl (3.4-5.0); BUN Creatinine Ratio 19.9 (10-20); Bilirubin Direct 0.1 mg/dl (0-0.2); Calcium 9.8 mg/dl (8.5-10.1); Creatinine Clr Calc Pharmacy 46.6 ml/min; Est GFR (African American) 86.7; Est GFR (Non-African American) 74.8; Potassium 3.9 mmol/L (3.5-5.1)
[2020-05-26 07:07] LABS: Bilirubin,Total 0.4 mg/dl (0.2-1); Total Protein 6.9 gm/dl (6.4-8.2)
--- NOTE | 2020-05-26 07:50 | Orthopedic Consultation ---
Date of Consultation May 26, 2020 Assessment & Plan (1) Compression fracture of thoracic vertebra: At this time we had contemplated a possible T11 kyphoplasty. I reviewed in detail with this would involve with the patient. At this point she feels relatively comfortable would like to withhold any surgery. We will continue to observe her. I would like her to follow-up my office in the next few weeks for x-rays. Present on Admission?: Yes History of Present Illness Reason for Consultation: Back pain Attending Physician: Ildefonso Cornell MD History of Present Illness This a very pleasant 89-year-old female who presents with back pain status post fall. She has been diagnosed with a T11 compression fracture. I was asked to see her. At this time she states her pain is relatively well controlled. She denies any radicular component to her pain denies any leg pain numbness or tingling. She states she is able to transfer in and out of bed to the bathroom with comfort. Allergies Allergy/AdvReac Type Severity Reaction Status Date / Time alendronate sodium Allergy Unknown ON [facility] MED Verified 05/24/20 09:53 LIST Home Medications Medication Instructions Recorded Confirmed Type albuterol sulfate 90 mcg/actuation 2 puffs INHALATION Q4H PRN #3 ea 11/05/18 05/24/20 Rx breath activated powder inhaler ipratropium 0.5 mg-albuterol 3 mg 3 ml INHALATION Q4H PRN #180 ml 11/05/18 05/24/20 Rx (2.5 mg base)/3 mL nebulization soln acetaminophen 500 mg tablet 500 mg PO Q6H PRN tab 01/16/19 05/24/20 History calcium carbonate-vitamin D3 600 1 tab PO DAILY #90 tab 01/19/19 05/24/20 Rx mg(1,500 mg)-400 unit chewable tablet amlodipine 10 mg tablet 10 mg PO DAILY #90 tab 07/05/19 05/24/20 Rx levothyroxine 50 mcg tablet 50 mcg PO DAILY #90 tab 03/31/20 05/24/20 Rx methotrexate sodium 2.5 mg tablet 20 mg PO WEEKLY #90 tab 03/31/20 05/24/20 Rx folic acid 5 mg PO DAILY 04/18/20 05/24/20 History furosemide 20 mg tablet 20 mg PO DAILY #90 tab 04/26/20 05/24/20 Rx omeprazole 40 mg capsule,delayed 40 mg PO DAILY cap 04/26/20 05/24/20 History release metoprolol tartrate 50 mg tablet 75 mg PO BID #270 tab 05/17/20 05/24/20 Rx calcitonin (salmon) 200 1 spray INTRANASAL (ALT) DAILY 05/24/20 05/24/20 Rx unit/actuation nasal spray #3.7 ml [id number] 1 puffs INHALATION DAILY 05/24/20 05/24/20 History [Trelegy Ellipta] ketoconazole 1 applic TOPICAL BID PRN 05/24/20 05/24/20 History tramadol 50 mg tablet See Rx Instructions PO QID PRN #40 05/24/20 05/24/20 Rx tab Patient History Medical History Abnormal positron emission tomography (PET) scan Abnormal weight loss Acute pain of left hip Anemia Anemia Anxiety Atrial fibrillation Blood in stool COPD, moderate Dysphagia Effusion of right knee Gait apraxia Gastric erosion with bleeding Gastritis Generalized osteoarthrosis, unspecified site High risk medication use Hyperactivity of bladder Hypercholesterolemia Hypertension Hypothyroidism Immunization, pneumococcus and influenza Inguinal lymphadenopathy Iron deficiency anemia Leg edema Lymphadenopathy Macular degeneration Mammogram abnormal New onset a-fib Non-Hodgkin's lymphoma Obstructive sleep apnea Osteoporosis Osteoporotic compression fracture of spine Pleural effusion Pulmonary nodule Rheumatoid arthritis Right middle lobe pulmonary nodule Right-sided heart failure Right-sided heart failure Sessile colonic polyp Urinary incontinence Visit for screening mammogram Surgical History History of cataract surgery History of colonoscopy History of dilation and curettage History of knee replacement History of Mohs micrographic surgery for skin cancer History of tonsillectomy Family History Daughter Multiple sclerosis Mother , age 50 of metastatic cancer Cancer Father , age 64 from a gasoline fire accident No problems noted. 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 She has reasonable strength testing. Results & Data ([facility]) Vital Signs (Past 12 Hours) Vital Signs Temp Pulse Pulse Pulse Resp BP BP 05/26/20 07:27 36.4 C L 85 18 146/84 H 05/26/20 06:10 05/26/20 06:05 05/26/20 03:33 79 05/26/20 00:25 78 05/25/20 23:22 36.8 C 85 16 149/76 H 05/25/20 23:21 76 05/25/20 22:10 110 H 05/25/20 21:23 87 126/70 Pulse Ox Pulse Ox 05/26/20 07:27 94 05/26/20 06:10 90 05/26/20 06:05 83 L 05/26/20 03:33 84 L 05/26/20 00:25 88 L 05/25/20 23:22 91 05/25/20 23:21 89 L 05/25/20 22:10 90 05/25/20 21:23 91 (1) Compression fracture of thoracic vertebra Encounter type: subsequent encounter Fracture healing: with routine healing Thoracic vertebra fracture level: T11 Qualified Code(s): S22.080D - Wedge compression fracture of T11-T12 vertebra, subsequent encounter for fracture with routine healing
--- NOTE | 2020-05-26 08:05 | Hospitalist Progress Note ---
Date of Service May 26, 2020 Assessment & Plan (1) Osteoporotic compression fracture of spine: Mrs. Adhikari is an 89 year old female with a history of Hypertension, Dyslipidemia, Hypothyroidism, COPD/Emphysema, Rheumatoid Arthritis, Osteoporosis, Non-Hodgkin's Lymphoma, Colonic Polyp, prior GI Bleed x 3 (while on anticoagulation), Sleep Apnea, Permanent Atrial Fibrillation, Severe Tricuspid Regurgitation, Right Sided Heart Failure, and a Hypermetabolic Right Pulmonary Nodule (she was scheduled for a bronchoscopy and biopsy today but that was cancelled) -- who presents today with Intractable Back Pain, T-11 Compression Fracture, after sustaining a fall on the morning of 05/21/2020. She was in her usual state of health that morning and as she was sitting down on a barstool to eat breakfast, she slid off the back of her stool and landed flat on her back. She had the onset of immediate severe lower thoracic spine pain and low back pain. She has been unable to walk, stand, bend, or perform her usual activities of daily living since this injury. She has not been eating because she does not feel hungry, she's in too much pain. Patient denies any numbness, tingling, or weakness in her legs or lower abdomen. She denies any urinary or fecal incontinence. She denies any injury to her head or other body parts with this fall. Patient's daughter is making arrangements for a Rehabilitation Facility in the [place] area, and they are hopeful that her mother can transferred there as early as Friday05/26/2020. Continue pain control with Tylenol, oxycodone MRI spine with T11 compression fracture --> Also noted lesion in body of T3 with rec for f/u CT Chest (patient also with pulmonary nodules and was to have Bronch with Dr. Watkins 2 days ago but was unable to make it due to fall/pain) Dr Flowers consulted -- has not yet seen patient but already on OR for tomorrow possibly. Patient agreeable to surgery if needed but would like to discuss with Dr. Flowers first. Orthotics consulted for brace -- patient does not want Patient denied need for lidocaine patch or heating pad but agreeable today for lidocaine patch with improvement of symptoms PT/OT with rec for rehab -- to go to [place] tomorrow CT Chest with likely pulm malignancy -- does not want treatment and will avoid bronch for official diagnosis (2) Right middle lobe pulmonary nodule: also with COPD (continue inhalers) suspected malignancy. -- Bronchoscopy and biopsy was scheduled with Dr. Watkins 2 days ago, but patient cancelled due to severe back pain. CT Chest as above -- not persuing bronchoscopy for diagnosis Palliative care consulted -- patient does not want intervention and would rather proceed comfort Previous ECHO 04/19/20 with normal LV systolic function, EF 60-65%, no wma, mild LVH, RV mildly dilated. No hemodynamically significant valvular , mild MR, m od-severe tricuspid regurgitation. RVSP elevated at 30-40mmHg. Overnight pulse ox with need - set up by CM Patient previously with O2 with ambulation but didn't like and sent this back Will order 2 step for re-qualification and ask CM to arrange at d/c (3) Abnormal positron emission tomography (PET) scan: -- As outlined under pulmonary nodule. -- Patient with a history of NHL and skin cancers. Not undergoing further eval (4) Atrial fibrillation: permanent Atrial Fibrillation. HR is controlled Continue Metoprolol Tartrate 75 mg b.i.d.. Not candidate for anticoagulation -- h/o GIB x 3 on anticoagulation. Continue to monitor (5) Hypertension: BP stable, 146/84 Continue metoprolol 75mg BID, amlodipine 10mg daily (6) Ataxic gait: Seen by Neurology recently -- planning for outpatient EMG testing B12/folate wnl. Vitamin D low at 23 -- placed on supplementation CT Head previously without acute CVA Mar 2020 (7) Hypothyroidism: TSH wnl 2.870 Continue levothyroxine (8) Non-Hodgkin's lymphoma: Hx of as well as skin ca not on any treatment see above Rheumatoid Arthritis Stable, on methotrexate VIt D deficiency Low at 23 -- placed on replacement and would continue at discharge DVT Prophylaxis SCDs, shania hose Chemoproph avoided w/ hx GIB Dispo: discharge to rehab tomorrow Admission and Anticipated Discharge Date Admission Date: May 24, 2020 Review of Systems Review of Systems: All systems reviewed & are unremarkable except as noted in HPI & below Physical Exam Constitutional: WD/WN, vitals as above no acute distress and + uncomfortable (mildly uncomfortable with movement) Eyes: normal visual aguayo by confrontation and + anicteric sclerae Neck: normal visual inspection and trachea midline Respiratory: normal respiratory effort, lungs clear to auscultation Auscultation: + diminished lung sounds (throughout) and + crackles (bibasilar); no wheezes Cardiovascular: Rate/Rhythm: + irregularly irregular Heart Sounds: no murmur Vessels: no JVD Extremities: no edema Gastrointestinal (Abdomen): Inspection/Auscultation: normal bowel sounds; abdomen not distended Percussion/Palpation: abdomen soft; abdomen nontender Musculoskeletal: Head/Neck/Chest: normocephalic and head atraumatic Neurologic: moves all extremities and awake; not confused Speech / Cognition: normal speech Psychiatric: Orientation: alert and oriented x 3 (intermittent confusion/repeating herself) Lymphatic: no cervical or axillary lymphadenopathy Results & Data Results & Data ([facility]) Vital Signs (Past 12 Hours) Vital Signs Temp Pulse Pulse Pulse Resp BP BP 05/26/20 07:27 36.4 C L 85 18 146/84 H 05/26/20 06:10 05/26/20 06:05 05/26/20 03:33 79 05/26/20 00:25 78 05/25/20 23:22 36.8 C 85 16 149/76 H 05/25/20 23:21 76 05/25/20 22:10 110 H 05/25/20 21:23 87 126/70 Pulse Ox Pulse Ox 05/26/20 07:27 94 05/26/20 06:10 90 05/26/20 06:05 83 L 05/26/20 03:33 84 L 05/26/20 00:25 88 L 05/25/20 23:22 91 05/25/20 23:21 89 L 05/25/20 22:10 90 05/25/20 21:23 91 Laboratory Results 05/26/20 05/26/20 05/26/20 Range/Units 05:37 05:37 05:37 WBC 8.79 (4.8-10.8) K/uL RBC 3.79 L (4.2-5.4) M/uL Hgb 11.6 L (12.0-16.0) g/dL Hct 36.1 L (37-47) % MCV 95.3 (80-100) fL MCH 30.6 (25-34) pg MCHC 32.1 (32-36) g/dL RDW Std Deviation 50.7 H (36.4-46.3) fL RDW Coeff of Kandy 14.9 H (11.5-14.5) % Plt Count 301 (130-400) K/uL MPV 9.4 (7.4-10.4) fL Immature Gran % (Auto) 0.6 % Neut % (Auto) 73.1 % Lymph % (Auto) 12.3 % [place] % (Auto) 11.8 % Eos % (Auto) 1.6 % Baso % (Auto) 0.6 % Neut # (Auto) 6.43 (1.4-6.5) K/uL Lymph # (Auto) 1.08 L (1.2-3.4) K/uL [place] # (Auto) 1.04 H (0.11-0.59) K/uL Eos # (Auto) 0.14 (0-0.5) K/uL Baso # (Auto) 0.05 (0-0.2) K/uL Immature Gran # (Auto) 0.05 H (0.00-0.02) K/uL Sodium 138 (136-145) mmol/L Potassium 3.9 (3.5-5.1) mmol/L Chloride 103 (98-107) mmol/L Carbon Dioxide 26 (21-32) mmol/L Anion Gap 9.0 (3-11) BUN 14 (7-18) mg/dl Creatinine 0.72 (0.6-1.2) mg/dl Est Cr Clr Drug Dosing 46.6 ml/min Est GFR ( Amer) 86.7 Est GFR (Non-Af Amer) 74.8 BUN/Creatinine Ratio 19.9 (10-20) Glucose 103 H (70-99) mg/dl Calcium 9.8 (8.5-10.1) mg/dl Total Bilirubin 0.4 (0.2-1) mg/dl Direct Bilirubin 0.1 (0-0.2) mg/dl AST 23 (15-37) U/L ALT 22 (12-78) U/L Alkaline Phosphatase 87 (45-117) U/L Troponin I (0-0.045) ng/ml Total Protein 6.9 (6.4-8.2) gm/dl Albumin 3.3 L (3.4-5.0) gm/dl Globulin (2.5-4.0) gm/dl Albumin/Globulin Ratio (0.9-2) Procalcitonin Pending Urine Color Urine Appearance (Clear) Urine pH (4.5-7.5) Ur Specific [place] (1.000-1.030) Urine Protein (Negative) Urine Glucose (UA) (Negative) Urine Ketones (Negative) Urine Blood (Negative) Urine Nitrite (Negative) Urine Bilirubin (Negative) Urine Urobilinogen (Negative) Ur Leukocyte Esterase (Negative) 05/25/20 05/25/20 05/25/20 Range/Units 12:08 12:07 12:07 WBC 9.47 (4.8-10.8) K/uL RBC 3.65 L (4.2-5.4) M/uL Hgb 11.3 L (12.0-16.0) g/dL Hct 34.8 L (37-47) % MCV 95.3 (80-100) fL MCH 31.0 (25-34) pg MCHC 32.5 (32-36) g/dL RDW Std Deviation 51.2 H (36.4-46.3) fL RDW Coeff of Kandy 14.9 H (11.5-14.5) % Plt Count 266 (130-400) K/uL MPV 9.2 (7.4-10.4) fL Immature Gran % (Auto) 0.4 % Neut % (Auto) 79.6 % Lymph % (Auto) 10.6 % [place] % (Auto) 7.9 % Eos % (Auto) 1.4 % Baso % (Auto) 0.1 % Neut # (Auto) 7.54 H (1.4-6.5) K/uL Lymph # (Auto) 1.00 L (1.2-3.4) K/uL [place] # (Auto) 0.75 H (0.11-0.59) K/uL Eos # (Auto) 0.13 (0-0.5) K/uL Baso # (Auto) 0.01 (0-0.2) K/uL Immature Gran # (Auto) 0.04 H (0.00-0.02) K/uL Sodium 137 (136-145) mmol/L Potassium 3.8 (3.5-5.1) mmol/L Chloride 104 (98-107) mmol/L Carbon Dioxide 27 (21-32) mmol/L Anion Gap 6.0 (3-11) BUN 18 (7-18) mg/dl Creatinine 0.76 D (0.6-1.2) mg/dl Est Cr Clr Drug Dosing 44.2 ml/min Est GFR ( Amer) 81.2 Est GFR (Non-Af Amer) 70.0 BUN/Creatinine Ratio 23.2 H (10-20) Glucose 104 H (70-99) mg/dl Calcium 9.1 (8.5-10.1) mg/dl Total Bilirubin 0.4 (0.2-1) mg/dl Direct Bilirubin (0-0.2) mg/dl AST 21 (15-37) U/L ALT 22 (12-78) U/L Alkaline Phosphatase 87 (45-117) U/L Troponin I < 0.015 (0-0.045) ng/ml Total Protein 6.9 (6.4-8.2) gm/dl Albumin 3.2 L (3.4-5.0) gm/dl Globulin 3.7 (2.5-4.0) gm/dl Albumin/Globulin Ratio 0.9 (0.9-2) Procalcitonin Urine Color Urine Appearance (Clear) Urine pH (4.5-7.5) Ur Specific [place] (1.000-1.030) Urine Protein (Negative) Urine Glucose (UA) (Negative) Urine Ketones (Negative) Urine Blood (Negative) Urine Nitrite (Negative) Urine Bilirubin (Negative) Urine Urobilinogen (Negative) Ur Leukocyte Esterase (Negative) 05/25/20 Range/Units 10:45 WBC (4.8-10.8) K/uL RBC (4.2-5.4) M/uL Hgb (12.0-16.0) g/dL Hct (37-47) % MCV (80-100) fL MCH (25-34) pg MCHC (32-36) g/dL RDW Std Deviation (36.4-46.3) fL RDW Coeff of Kandy (11.5-14.5) % Plt Count (130-400) K/uL MPV (7.4-10.4) fL Immature Gran % (Auto) % Neut % (Auto) % Lymph % (Auto) % [place] % (Auto) % Eos % (Auto) % Baso % (Auto) % Neut # (Auto) (1.4-6.5) K/uL Lymph # (Auto) (1.2-3.4) K/uL [place] # (Auto) (0.11-0.59) K/uL Eos # (Auto) (0-0.5) K/uL Baso # (Auto) (0-0.2) K/uL Immature Gran # (Auto) (0.00-0.02) K/uL Sodium (136-145) mmol/L Potassium (3.5-5.1) mmol/L Chloride (98-107) mmol/L Carbon Dioxide (21-32) mmol/L Anion Gap (3-11) BUN (7-18) mg/dl Creatinine (0.6-1.2) mg/dl Est Cr Clr Drug Dosing ml/min Est GFR ( Amer) Est GFR (Non-Af Amer) BUN/Creatinine Ratio (10-20) Glucose (70-99) mg/dl Calcium (8.5-10.1) mg/dl Total Bilirubin (0.2-1) mg/dl Direct Bilirubin (0-0.2) mg/dl AST (15-37) U/L ALT (12-78) U/L Alkaline Phosphatase (45-117) U/L Troponin I (0-0.045) ng/ml Total Protein (6.4-8.2) gm/dl Albumin (3.4-5.0) gm/dl Globulin (2.5-4.0) gm/dl Albumin/Globulin Ratio (0.9-2) Procalcitonin Urine Color Yellow Urine Appearance Clear (Clear) Urine pH 5.0 (4.5-7.5) Ur Specific [place] 1.023 (1.000-1.030) Urine Protein Negative (Negative) Urine Glucose (UA) Negative (Negative) Urine Ketones Negative (Negative) Urine Blood Negative (Negative) Urine Nitrite Negative (Negative) Urine Bilirubin Negative (Negative) Urine Urobilinogen Negative (Negative) Ur Leukocyte Esterase Negative (Negative) PG Care Time/CCT Total # of Minutes Spent Total Time Spent with Patient: Total time spent is greater than 50% in coordination of care (as documented) at patient's floor/unit and/or counseling patient: Coding Level of Care Code 81910 Subseq Hosp Care Lvl 2 Diagnoses Osteoporotic compression fracture of spine M80.88XA Right middle lobe pulmonary nodule R91.1 Abnormal positron emission tomography (PET) scan R94.8 Atrial fibrillation I48.91 Atrial fibrillation type: unspecified Hypertension I10 Ataxic gait R26.0 Hypothyroidism E03.9 Non-Hodgkin's lymphoma C85.90 (1) Atrial fibrillation Atrial fibrillation type: unspecified Qualified Code(s): I48.91 - Unspecified atrial fibrillation
[2020-05-26] MEDS: PANTOprazole 40 MG TAB PO SCH (08:29)
[2020-05-26] MEDS: CALCIUM 600MG + VIT D 400 IU TAB PO SCH (08:29)
[2020-05-26] MEDS: amLODIPine BESYLATE 5 MG TAB PO SCH (08:29)
[2020-05-26] MEDS: FOLIC ACID 1 MG TAB PO SCH (08:29)
[2020-05-26] MEDS: CHOLECALCIFEROL 1,000 UNITS 25 MCG TAB PO SCH (08:30)
[2020-05-26] MEDS: POLYETHYLENE (MIRALAX) 17 GM PACK PO SCH (08:53)
[2020-05-26] MEDS: FUROSEMIDE 20 MG TAB PO SCH (08:53)
[2020-05-26] MEDS: METOPROLOL TARTRATE 25 MG TAB PO SCH ×2 (08:53→20:27)
[2020-05-26] MEDS: FLUTICASONE FUROATE 100MCG 14 PUFFS/INHALER INH SCH (08:54)
[2020-05-26] MEDS: DOCUSATE SODIUM 100 MG CAP PO SCH ×2 (08:54→20:27)
[2020-05-26] MEDS: CALCITONIN SALMON NA 200 IU/AC 3.7 ML BTL SCH (08:54)
[2020-05-26] MEDS: UMECLIDINIUM/VILANTEROL 62.5/25MCG 7 PUFFS/INHALER INH SCH (08:54)
[2020-05-26] MEDS ORDERED: traMADol HCL 50 MG TABLET PO PRN (09:30)
[2020-05-26] MEDS: oxyCODONE HCL IR 5 MG TAB (IMMEDIATE RELEASE) PO PRN (10:36)
[2020-05-26] MEDS: LIDOCAINE 5% 1 PATCH TD SCH (11:43)
--- NOTE | 2020-05-26 13:31 | Palliative Care Consultation ---
Date of Consultation May 26, 2020 Assessment & Plan (1) Intractable back pain: She had been having less pain and declined kyphoplasty at this time. She had some concerns that she would be more debilitated after surgery. Encouraged her to discuss these concerns with Dr. Flowers as she would likely have improved function with surgery and adequate analgesia. Given her baseline confusion which appears to be exacerbated by tramadol, dose has been decreased. We discussed use of lidocaine patch for additional analgesia. She is agreeable to this. (2) Constipation: She has daily miralax and colace with prns available. Monitor (3) Palliative care encounter: I discussed goals of care with Rosa at bedside and with her and daughter by phone. Her greatest worry is not being able to be independent and becoming a burden for her family. She is interested in rehab after discharge to increase her strength and functional capacity. We discussed whether that would occur here or in [place] as they are planning to move to [place]. Her daughter would prefer this to occur in [place] if we are able to control her pain to allow comfortable travel. We also discussed Rosa's thoughts on further workup or treatment for her pulmonary nodule. Again, her goal is to maintain as much function as possible and she realizes that at 89, she is not afraid of dying. She would prefer to have good quality time with her family, even if that time were somewhat shorter without treatment of a possible lung cancer. Given her current functional status, she would not be an ideal candidate for cancer treatment. Her wish is to not pursue further workup of the nodule. Her family is aware of this and support her decision. (4) Compression fracture of thoracic vertebra: Encounter type: subsequent encounter Fracture healing: with routine healing Thoracic vertebra fracture level: T11 Qualified Code(s): S22.080D - Wedge compression fracture of T11-T12 vertebra, subsequent encounter for fracture with routine healing (5) Right middle lobe pulmonary nodule: (6) Right-sided heart failure: (7) Atrial fibrillation: Atrial fibrillation type: unspecified Qualified Code(s): I48.91 - Unspecified atrial fibrillation (8) Acute kidney injury: History of Present Illness Reason for Consultation: goals of care Requesting Physician: Cecy Boston Attending Physician: Ildefonso Cornell MD History of Present Illness 89 yo lady who was admitted after a fall at home and found to have T11 compression fracture. She has had pain in her mid back and was taking tramadol but she has had some confusion which is upsetting to her. She had been considering kyphoplasty and was seen by Dr. Flowers but decided against surgery at this time. She also has a right middle lobe pulmonary nodule and is considering plan of care for workup of that. She lives with her and they had been planning to move to a custodial community in [place] near her daughter prior to her fall. We have been consulted to assist with goals of care. Allergies Allergy/AdvReac Type Severity Reaction Status Date / Time alendronate sodium Allergy Unknown ON [facility] Verified 05/24/20 09:53 LIST Home Medications Medication Instructions Recorded Confirmed Type albuterol sulfate 90 mcg/actuation 2 puffs INHALATION Q4H PRN #3 ea 11/05/18 05/24/20 Rx breath activated powder inhaler ipratropium 0.5 mg-albuterol 3 mg 3 ml INHALATION Q4H PRN #180 ml 11/05/18 05/24/20 Rx (2.5 mg base)/3 mL nebulization soln acetaminophen 500 mg tablet 500 mg PO Q6H PRN tab 01/16/19 05/24/20 History calcium carbonate-vitamin D3 600 1 tab PO DAILY #90 tab 01/19/19 05/24/20 Rx mg(1,500 mg)-400 unit chewable tablet amlodipine 10 mg tablet 10 mg PO DAILY #90 tab 07/05/19 05/24/20 Rx levothyroxine 50 mcg tablet 50 mcg PO DAILY #90 tab 03/31/20 05/24/20 Rx methotrexate sodium 2.5 mg tablet 20 mg PO WEEKLY #90 tab 03/31/20 05/24/20 Rx folic acid 5 mg PO DAILY 04/18/20 05/24/20 History furosemide 20 mg tablet 20 mg PO DAILY #90 tab 04/26/20 05/24/20 Rx omeprazole 40 mg capsule,delayed 40 mg PO DAILY cap 04/26/20 05/24/20 History release metoprolol tartrate 50 mg tablet 75 mg PO BID #270 tab 05/17/20 05/24/20 Rx calcitonin (salmon) 200 1 spray INTRANASAL (ALT) DAILY 05/24/20 05/24/20 Rx unit/actuation nasal spray #3.7 ml hoiscvutvry-wneudaxal-gihvfyej 1 puffs INHALATION DAILY 05/24/20 05/24/20 History [Trelegy Ellipta] ketoconazole 1 applic TOPICAL BID PRN 05/24/20 05/24/20 History tramadol 50 mg tablet See Rx Instructions PO QID PRN #40 05/24/20 05/24/20 Rx tab Patient History Medical History Abnormal positron emission tomography (PET) scan Abnormal weight loss Acute pain of left hip Anemia Anemia Anxiety Atrial fibrillation Blood in stool COPD, moderate Dysphagia Effusion of right knee Gait apraxia Gastric erosion with bleeding Gastritis Generalized osteoarthrosis, unspecified site High risk medication use Hyperactivity of bladder Hypercholesterolemia Hypertension Hypothyroidism Immunization, pneumococcus and influenza Inguinal lymphadenopathy Iron deficiency anemia Leg edema Lymphadenopathy Macular degeneration Mammogram abnormal New onset a-fib Non-Hodgkin's lymphoma Obstructive sleep apnea Osteoporosis Osteoporotic compression fracture of spine Pleural effusion Pulmonary nodule Rheumatoid arthritis Right middle lobe pulmonary nodule Right-sided heart failure Right-sided heart failure Sessile colonic polyp Urinary incontinence Visit for screening mammogram Surgical History History of cataract surgery History of colonoscopy History of dilation and curettage History of knee replacement History of Mohs micrographic surgery for skin cancer History of tonsillectomy Family History Daughter Multiple sclerosis Mother , age 50 of metastatic cancer Cancer Father , age 64 from a gasoline fire accident No problems noted. 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67 How many Children do You have: 1 Other Information That Helps Us Care for You: No Feels Safe at Home: Yes Seatbelt Use: always Assistive Devices: Walker Review of Systems Review of Systems: [place] Symptom Assessment Scale Pain2/3 Dyspnea 0/3 Nausea 1/3 Fatigue 1/3 Anxiety 1/3 Anorexia 2/3 Palliative Performance Score 40% Physical Exam Constitutional: no acute distress facial grimace with movement ENMT: Mouth: + dry oral mucous membranes Respiratory: normal respiratory effort; no labored breathing Cardiovascular: Extremities: no edema Gastrointestinal (Abdomen): Percussion/Palpation: abdomen nontender constipation Musculoskeletal: tenderness to palpation at T11 Skin: warm and dry Neurologic: awake; no focal motor deficits Psychiatric: Orientation: alert and oriented x 3 Results & Data ([facility]) Vital Signs (Past 12 Hours) Vital Signs Temp Pulse Pulse Resp BP Pulse Ox Pulse Ox 05/26/20 07:27 97.5 F L 85 18 146/84 H 94 05/26/20 06:10 90 05/26/20 06:05 83 L 05/26/20 03:33 79 84 L PG Care Time/CCT Total # of Minutes Spent Total Time Spent with Patient: Total time spent is greater than 50% in coordination of care (as documented) at patient's floor/unit and/or counseling patient: Total time spent 70 minutes with more than 50% of time spent on goals of care, coordination of care with hospitalist, symptom management. Coding Level of Care Code 96788 Inpt Consult Level 4 Diagnoses Intractable back pain M54.9 Constipation K59.00 Palliative care encounter Z51.5 Compression fracture of thoracic vertebra S22.080D Encounter type: subsequent encounter Fracture healing: with routine healing Thoracic vertebra fracture level: T11 Right middle lobe pulmonary nodule R91.1 Right-sided heart failure I50.810 Atrial fibrillation I48.91 Atrial fibrillation type: unspecified Acute kidney injury N17.9
[2020-05-26] MEDS ORDERED: AZITHROMYCIN 250 MG TAB PO ONE (15:58)
[2020-05-27] MEDS: oxyCODONE HCL IR 5 MG TAB (IMMEDIATE RELEASE) PO PRN ×2 (02:51→07:49)
[2020-05-27] MEDS: LEVOTHYROXINE SODIUM 50 MCG TABLET PO SCH (05:39)
--- NOTE | 2020-05-27 07:59 | Discharge Summary ---
Date of Service May 27, 2020 Admission HPI Per Admitting Provider Mrs. Adhikari is an 89 year old female with a history of Hypertension, Dyslipidemia, Hypothyroidism, COPD/Emphysema, Rheumatoid Arthritis, Osteoporosis, Non-Hodgkin's Lymphoma, Colonic Polyp, prior GI Bleed x 3 (while on anticoagulation), Sleep Apnea, Permanent Atrial Fibrillation, Severe Tricuspid Regurgitation, Right Sided Heart Failure, and a Hypermetabolic Right Pulmonary Nodule -- who presents today with Intractable Back Pain, T-11 Compression Fracture, after sustaining a fall on the morning of 05/21/2020. She was in her usual state of health that morning and as she was sitting down on a barstool to eat breakfast, she slid off the back of her stool and landed flat on her back. She had the onset of immediate severe lower thoracic spine pain and low back pain. She has been unable to walk, stand, bend, or perform her usual activities of daily living since this injury. She has not been eating because she does not feel hungry, she's in too much pain. Patient denies any numbness, tingling, or weakness in her legs or lower abdomen. She denies any urinary or fecal incontinence. She denies any injury to her head or other body parts with this fall. She lives with her , but he has a hard time helping her at home and he is anxious. Her daughter came here from [place] to get her mother further evaluated. Patient was seen by her PCP Dr. Mccartney earlier today and since patient is unable to do the things she needs to do at home -- he sent her into the ER. Patient's daughter is making arrangements for a Rehabilitation Facility in the [facility], and they are hopeful that her mother can transferred there as early as Friday05/26/20. Patient is normally active on a daily basis. She does her chores in the morning, and when the weather is nice -- gardens in the afternoon. She never had difficulty doing these activities or walking in the past. Admission Exam Per Admitting Provider GENERAL: Patient lying on litter in no acute distress. HEENT: Head is atraumatic, normocephalic. EOM's intact. Facies symmetric. No perioral cyanosis. NECK: No JVD. JVP is at the level of the clavicle sitting upright. Carotid upstrokes are + 2 bilaterally. CHEST/LUNGS: Diminished breath sounds throughout, no wheezes, rales, or crackles. CVS: S1 and S2 are irregularly irregular with an apical rate of 84 bpm. There is a grade 2/6 apical systolic murmur. No obvious diastolic murmurs. No gallops or rubs. PMI is nondisplaced. No lifts, heaves, or thrills. No abdominal aortic or renal bruits. ABDOMINAL EXAM: Bowel sounds are present. No masses, organomegaly, or tenderness. EXTREMITIES: No clubbing or cyanosis. No edema. Intact radial pulses bilaterally. NEUROLOGIC EXAM: Patient is awake, alert, and oriented. Pleasant and cooperative. Answers questions appropriately. Speech is clear. Sensation intact to light touch over bilateral lower extremities. MUSCULOSKELETAL EXAM: Tender to palpation over T-11, spasm and tightness in the thoracic and paralumbar musculature. Multiple joint deformities of finger joints consistent with RA. Constitutional: WD/WN, vitals as above Eyes: normal visual aguayo by confrontation and + anicteric sclerae Neck: normal visual inspection and trachea midline Respiratory: normal respiratory effort, lungs clear to auscultation Cardiovascular: Rate/Rhythm: regular rate and regular rhythm Gastrointestinal (Abdomen): Inspection/Auscultation: abdomen not distended Percussion/Palpation: abdomen soft; abdomen nontender Musculoskeletal: Head/Neck/Chest: normocephalic and head atraumatic Neg for peripheral LE edema, + pedal pulses Skin: no rashes, warm and dry Neurologic: awake; not confused Speech / Cognition: normal speech Psychiatric: A+Ox3, euthymic affect Lymphatic: Exam as done by Lorna Shane DO Principal Diagnosis T11 Compression Fracture Discharge Exam Constitutional WD/WN, vitals as above no acute distress Eyes normal visual aguayo by confrontation and + anicteric sclerae ENMT mmm Neck normal visual inspection and trachea midline Respiratory normal respiratory effort, lungs clear to auscultation Auscultation: + diminished lung sounds (throughout) and + crackles (bibasilar); no wheezes Cardiovascular Rate/Rhythm: + irregularly irregular Heart Sounds: no murmur Vessels: no JVD Extremities: no edema Gastrointestinal (Abdomen) Inspection/Auscultation: normal bowel sounds; abdomen not distended Percussion/Palpation: abdomen soft; abdomen nontender Musculoskeletal Head/Neck/Chest: normocephalic and head atraumatic Tender to palpation over thoracic spine, level of T11 Multiple joint deformities of finger joints consistent with RA. Skin warm, dry Neurologic moves all extremities and awake; not confused Speech / Cognition: normal speech Psychiatric Orientation: alert and oriented x 3 Lymphatic no cervical or axillary lymphadenopathy Discharge Data Allergies Allergy/AdvReac Type Severity Reaction Status Date / Time alendronate sodium Allergy Unknown ON GMG MED Verified 05/24/20 09:53 LIST Consultations 05/24/20 12:53 ED Decision to Admit Stat 05/25/20 10:15 Consult Orthopedic Surgery Routine 05/25/20 13:05 Consult Cardiology Routine 05/25/20 15:03 Consult Palliative Care Routine Procedures Performed Operation Date: 05/26/20 11:25 <No data on this case meets the specified criteria> Ordered Studies 05/24/20 12:40 MR thoracic spine wo con Stat CXR 05/24/20 13:19 MR lumbar spine wo con Stat 05/25/20 09:58 CT chest diagnostic w con Routine Hospital Course (1) Osteoporotic compression fracture of spine: Mrs. Adhikari is an 89 year old female with a history of Hypertension, Dyslipidemia, Hypothyroidism, COPD/Emphysema, Rheumatoid Arthritis, Osteoporosis, Non-Hodgkin's Lymphoma, Colonic Polyp, prior GI Bleed x 3 (while on anticoagulation), Sleep Apnea, Permanent Atrial Fibrillation, Severe Tricuspid Regurgitation, Right Sided Heart Failure, and a Hypermetabolic Right Pulmonary Nodule (she was scheduled for a bronchoscopy and biopsy today but that was cancelled) -- who presents today with Intractable Back Pain, T-11 Compression Fracture, after sustaining a fall on the morning of 05/21/2020. She was in her usual state of health that morning and as she was sitting down on a barstool to eat breakfast, she slid off the back of her stool and landed flat on her back. She had the onset of immediate severe lower thoracic spine pain and low back pain. She has been unable to walk, stand, bend, or perform her usual activities of daily living since this injury. She has not been eating because she does not feel hungry, she's in too much pain. Patient denies any numbness, tingling, or weakness in her legs or lower abdomen. She denies any urinary or fecal incontinence. She denies any injury to her head or other body parts with this fall. MRI spine with T11 compression fracture orthopedics consulted -- would be good candidate for kyphoplasty for pain relief, however patient opted for medical management/conservative treatment. If she changes her mind, would have follow up with Dr. Flowers in 2-3 weeks for repeat xrays/possible intervention. She can also follow up closer to [place] where she will be going to rehab based on how she does with therapy Pain control with tylenol, oxycodone, lidocaine patch -- continued at discharge Orthotics was consulted for possible brace -- too big/bulky for patient and she did not want to utilize this Vit D level low -- start/continue replacement Pulmonary Lesion --> Also noted lesion in body of T3 with rec for f/u CT Chest (patient also with pulmonary nodules and was to have Bronch with Dr. Watkins past week [facility] but was unable to make it due to fall/pain) CT of the chest was completed, concerning for primary lung malignancy, previously suspected on prior PET scan Discussion was had with pulmonary team, and based on lesion, would need jean pierre bronch and at risk for pneumo/need for chest tube. Lengthy discussion was had with patient and she would not want any treatment if indeed was malignant. Palliative consultation was had, and patient wishes to have best quality of life and not want to pursue further investigation at this time PT/OT evals with rec for SNF at discharge. --Daughter from [place] and having patient set up for rehab at that facility and was discharged with family to rehab Of note, patient qualified for O2 at night. She had previously been on O2 with ambulation but did not like this and sent it back. Discussed condition may worsen, so she may need O2 in the future and will need close monitoring at the rehab with initiation of O2 with ambulation if needed. 98% on RA prior to discharge--> Of note, she does have significant emphysema, so she likely runs lower at baseline. (2) Right middle lobe pulmonary nodule: also with COPD (continue inhalers) suspected malignancy. -- Bronchoscopy and biopsy was scheduled with Dr. Watkins 2 days ago, but patient cancelled due to severe back pain. CT Chest as above -- not persuing bronchoscopy for diagnosis Palliative care consulted -- patient does not want intervention and would rather proceed comfort Previous ECHO 04/19/20 with normal LV systolic function, EF 60-65%, no wma, mild LVH, RV mildly dilated. No hemodynamically significant valvular , mild MR, mod-severe tricuspid regurgitation. RVSP elevated at 30-40mmHg. Overnight pulse ox with need - set up by DEANNA Patient previously with O2 with ambulation but didn't like and sent this back -- needs to have close pulse ox monitoring at rehab. Consider 2 step for o2 with ambulation as she previously declined. (3) Abnormal positron emission tomography (PET) scan: -- As outlined under pulmonary nodule. -- Patient with a history of NHL and skin cancers. Not undergoing further eval (4) Atrial fibrillation: permanent Atrial Fibrillation. HR is controlled Continued Metoprolol Tartrate 75 mg b.i.d.. Not candidate for anticoagulation -- h/o GIB x 3 on anticoagulation. (5) Hypertension: BP stable Continued metoprolol 75mg BID, amlodipine 10mg daily (6) Ataxic gait: Seen by Neurology recently -- planning for outpatient EMG testing B12/folate wnl. Vitamin D low at 23 -- supplementation CT Head previously without acute CVA Mar 2020 (7) Hypothyroidism: TSH wnl 2.870 Continued levothyroxine (8) Non-Hodgkin's lymphoma: Hx of as well as skin ca not on any treatment see above Rheumatoid Arthritis Stable, on methotrexate VIt D deficiency Low at 23 -- placed on replacement and continue at discharge DVT Prophylaxis SCDs, shania ramachandran Chemoproph avoided w/ hx GIB discharge to rehab with daughter/ for transportation Total Time Total Time Spent Total Time Spent (In Minutes): 70 Discharge Plan Discharge Items Patient Disposition: Transfer Group Home Fac Reason For Visit: INTRACTABLE BACK PAIN Discharge Diagnosis: Thoracic Compression Fracture Goals: You have been hospitalized for an acute medical problem. During your stay at [facility], we have made an effort to correct the problem that brought you to the hospital while keeping you as comfortable as possible. Medications were used to bring your condition under control and your discharge instructions will include directions for any medications you should take after leaving the hospital. Please make sure you see your Primary Care Provider as part of your follow up plan. Activity: As commented below Activity Comment: advance as tolerated Non-emergency contact: Primary Care Provider and Surgeon Call non-emergency contact if: you have any medication questions, your symptoms worsen and your pain is not controlled Follow-up/Referrals: Ish Mccartney MD [Primary Care Provider] - Vance Flowers DO [Surgeon] - (2-3 weeks) Diet: Heart Healthy Addtl Attending Provider Instructions: You have been hospitalized for uncontrolled back pain. Imaging was performed which showed evidence of a thoracic compression fracture. You were evaluated by orthopedic surgery and have opted for conservative treatment. You should continue to keep in mind, that if your back pain continues, follow up with orthopedic surgery for possible kyphoplasty may provide significant relief. Your vitamin D level was found to be low, which can contribute to weak bones and increase chances of fracture. You should continue replacement at discharge. You have been attempted to be fitted with a brace, but this has been uncomfortable and decision is made to control with medications instead. * Continue Lidocaine patch daily to affected area. This has provided significant improvement and should be changed daily * You should continue scheduled tylenol at least for the acute period and can utilize oxycodone 5mg every 4-6 hours as needed for breakthrough pain. With regards to the pulmonary finding that were concerning for malignancy, a chest CT confirms high suspicion for a primary malignancy and this imaging was reviewed by our pulmonology group who feels if biopsy was warranted for definitive diagnosis, that it would be high risk for a pneumothorax (collapsed lung) which may require chest tube for treatment. Given lengthy discussion with our team and palliative care and your wishes to not have any treatment even if this was malignant. You have been tested for needs for overnight oxygen and you should continue to utilize 2 liters at night via nasal cannula. As you had previously needed oxygen with ambulation, but have been stable at rest, you should have close pulse oximetry monitoring at rest and with a mbulation at rehab and should further discuss oxygen with ambulation. Given your severe emphysema, you likely run around 88-89% on room air and have denied any shortness of breath at those levels. Regardless, you should have further monitoring and possible initiation of oxygen with ambulation, especially if you lung disease continues to progress. Please continue to advance your activity as tolerated at rehab. Please follow up with PCP in the next 1-2 weeks to monitor your progress. Please return to the emergency department with any increased/uncontrolled pain, chest pain, shortness of breath, or for any other symptoms that are concerning for you. It has been a pleasure being a part of the medical team providing for you while you have been in the hospital. Take care@ Pending Studies at Discharge: No Stand-Alone Forms: My [facility] Skilled Items Patient informed of condition?: Yes DNR: Yes Discharge Level of Care: Skilled Communicable Disease: No Discharge Prognosis: Stable Lines: None Urinary Catheter: Yes Medications and DC Order Prescriptions: New oxycodone 5 mg Tablet 5 mg PO Q4H PRN (Reason: pain) Qty: 20 RF: 0 polyethylene glycol 3350 [Miralax] 17 gram Powder In Packet 17 g PO DAILY Qty: 14 RF: 0 lidocaine 5 % Adhesive Patch,Medicated 1 patch transdermal QAM 7 Days Qty: 15 RF: 0 cholecalciferol (vitamin D3) 25 mcg (1,000 unit) Capsule 1,000 unit PO QAM 30 Days Qty: 30 RF: 0 Continued amlodipine 10 mg tablet 10 mg PO DAILY Qty: 90 RF: 3 levothyroxine 50 mcg tablet 50 mcg PO DAILY Qty: 90 RF: 0 methotrexate sodium 2.5 mg tablet 20 mg PO WEEKLY Qty: 90 RF: 3 ipratropium-albuterol 0.5 mg-3 mg(2.5 mg base)/3 mL solution for nebulization 3 ml inhalation Q4H PRN (Reason: shortness of breath or wheezing) Qty: 180 RF: 3 albuterol sulfate 90 mcg/actuation aerosol powdr breath activated 2 puffs inhalation Q4H PRN (Reason: shortness of breath or wheezing) Qty: 3 RF: 3 acetaminophen 500 mg tablet 500 mg PO Q6H PRN (Reason: fever or pain) RF: 0 Calcium 600 with Vitamin D3 600 mg(1,500mg) -400 unit tablet,chewable 1 tab PO DAILY Qty: 90 RF: 3 metoprolol tartrate 50 mg tablet 75 mg PO BID Qty: 270 RF: 3 omeprazole 40 mg capsule,delayed release(DR/EC) 40 mg PO DAILY RF: 0 furosemide 20 mg tablet 20 mg PO DAILY Qty: 90 RF: 3 calcitonin (salmon) 200 unit/actuation spray,non-aerosol 1 spray intranasal (ALT) DAILY Qty: 3.7 RF: 5 folic acid 1 mg Tablet 5 mg PO DAILY RF: 0 ketoconazole 2 % cream 1 applic topical BID PRN (Reason: SEBORRHEA) RF: 0 Trelegy Ellipta 100-62.5-25 mcg blister with device 1 puffs inhalation DAILY RF: 0 Discontinued tramadol 50 mg tablet See Rx Instructions PO QID PRN (Reason: pain) Qty: 40 RF: 0 Discharge Orders: Discharge Order (Routine); Ordered 05/27/20 Ordered By: Cecy Boston Admission Data Admit Date/Time: 05/24/20 15:09 Attending Provider: Ildefonso Cornell Admit Provider: Lorna Shane Primary Care Provider: Ish Mccartney Other Providers: Lorna Shane ; Vance Flowers Christophe W. ; Michelle Karimi Other Interventions: Discharge Summary Assessment (RN) Last Done: 05/27/20 10:27 Coding Level of Care Code D/C Day Management >30 mins Diagnoses Osteoporotic compression fracture of spine M80.88XA Right middle lobe pulmonary nodule R91.1 Abnormal positron emission tomography (PET) scan R94.8 Atrial fibrillation I48.91 Atrial fibrillation type: unspecified Hypertension I10 Ataxic gait R26.0 Hypothyroidism E03.9 Non-Hodgkin's lymphoma C85.90
[2020-05-27] MEDS: UMECLIDINIUM/VILANTEROL 62.5/25MCG 7 PUFFS/INHALER INH SCH (08:41)
[2020-05-27] MEDS: FLUTICASONE FUROATE 100MCG 14 PUFFS/INHALER INH SCH (08:42)
[2020-05-27] MEDS: CALCIUM 600MG + VIT D 400 IU TAB PO SCH (08:42)
[2020-05-27] MEDS: DOCUSATE SODIUM 100 MG CAP PO SCH (08:43)
[2020-05-27] MEDS: FOLIC ACID 1 MG TAB PO SCH (08:43)
[2020-05-27] MEDS: FUROSEMIDE 20 MG TAB PO SCH (08:44)
[2020-05-27] MEDS: CALCITONIN SALMON NA 200 IU/AC 3.7 ML BTL SCH (08:44)
[2020-05-27] MEDS: LIDOCAINE 5% 1 PATCH TD SCH (08:44)
[2020-05-27] MEDS: POLYETHYLENE (MIRALAX) 17 GM PACK PO SCH (08:45)
[2020-05-27] MEDS: amLODIPine BESYLATE 5 MG TAB PO SCH (08:46)
[2020-05-27] MEDS: PANTOprazole 40 MG TAB PO SCH (08:46)
[2020-05-27] MEDS: CHOLECALCIFEROL 1,000 UNITS 25 MCG TAB PO SCH (08:46)
[2020-05-27] MEDS: METOPROLOL TARTRATE 25 MG TAB PO SCH (08:47)
[2020-05-27] MEDS ORDERED: AZITHROMYCIN 250 MG TAB PO SCH (09:00)
[2020-05-31] MEDS ORDERED: metHOTREXate sodium 2.5 MG TAB PO SCH (09:00)
== END 2020-05-27 11:10 | DRG 543 ==
LOC: ED 11:30 → SUATTDRO 15:09 → 3N 15:09